=== PATIENT | female | born 1975 | race Caucasian/White ===

== ENCOUNTER 2024-03-09 21:07 | Inpatient (IN) | payer MEDICAID, SELFPAY ==
[2024-03-09 21:10] VITALS: BP 188/95; PULSE 89; RESP 18; TEMP 36.9; O2SAT 99; BMI 35.8
--- NOTE | 2024-03-09 21:30 | CTR_ITS ---
PROCEDURE INFORMATION: Exam: CT Abdomen And Pelvis With Contrast Exam date and time: 03/09/2024 10:30 PM Age: 48 years old Clinical indication: Abdominal pain; Generalized; Prior surgery; Surgery date: 6+ months; Surgery type: Gb. Csection; Patient HX: C/O diffuse abd pain; Additional info: Diffuse abdominal pain TECHNIQUE: Imaging protocol: Computed tomography of the abdomen and pelvis with contrast. Radiation optimization: All CT scans at this facility use at least one of these dose optimization techniques: automated exposure control; mA and/or kV adjustment per patient size (includes targeted exams where dose is matched to clinical indication); or iterative reconstruction. Contrast material: OMNI 350; Contrast volume: 80 ml; Contrast route: INTRAVENOUS (IV); COMPARISON: CR XR KUB [id number] 06/17/2017 12:47 AM RADIATION DOSE METRICS: Total DLP (mGy-cm): 1029.96 FINDINGS: Pleural spaces: Small bilateral pleural effusions with relaxation atelectasis in the lower lobes. Heart: Trace pericardial fluid. Liver: The liver is enlarged, measuring 19.8 cm craniocaudal. Gallbladder and biliary ducts: Status post cholecystectomy. Bile ducts are normal in caliber. Pancreas: Normal. No ductal dilation. Spleen: Punctate calcified splenic granuloma. Adrenal glands: Normal. No mass. Kidneys and ureters: Normal. No hydronephrosis. Stomach and bowel: Moderate colonic stool. Fecalization of intraluminal contents within mid to distal small bowel loops no evidence of bowel obstruction. Appendix: No evidence of appendicitis. Intraperitoneal space: Trace free pelvic fluid. Vasculature: Mild scattered aortoiliac calcifications. No aortic aneurysm. Lymph nodes: Unremarkable. No enlarged lymph nodes. Urinary bladder: Unremarkable as visualized. Reproductive: Unremarkable as visualized. Bones/joints: Unremarkable. No acute fracture. Soft tissues: Diffuse anasarca. CT/CT abdomen pelvis w con* [id number] IMPRESSION: 1. Small bilateral pleural effusions with adjacent relaxation atelectasis and diffuse anasarca may represent fluid overload. 2. Trace free pelvic fluid may be physiologic. 3. Moderate colonic stool can be seen with constipation. 4. Fecalization of intraluminal contents within mid to distal small bowel loops may represent enteritis and/or hypomotility.
--- NOTE | 2024-03-09 21:30 | W.ED.SOB ---
Documented by User: JANINE Angel 03/10/24 00:38 HPI - SOB/Dyspnea General: Chief Complaint: Shortness of Breath/Dyspnea Stated Complaint: sob Time Seen by Provider: 03/09/24 21:09 History of Present Illness: HPI Narrative: Mellisa Matthews is a 48-year-old female who presents to the emergency department with complaints of shortness of breath, chest discomfort, generalized fatigue and malaise. Onset of symptoms 4 days before Thanksgiving. Patient was evaluated the day before Thanks and diagnosed with pneumonia. She was started on and has completed antibiotics. She had a follow-up appointment which showed resolution of her pneumonia. Since then she has developed increasing shortness of breath which has resulted in diagnosis of acute heart failure and fluid retention. Patient was started Lasix and told to come to the emergency department should she have any further weight gain. Patient notes weight gain since the day before Thanks as 40 pounds. She has been taking 20 mg of Lasix daily. Patient denies fevers at this time Denies chills.. Notes a nonproductive cough. Feels like she cannot catch her breath when she starts to cough Associated symptoms: Reports abdominal pain, chest congestion, chest pain, nausea and orthopnea; Deny dizziness, extremity pain, fever(s), palpitations, polydipsia, polyuria or vomiting Related Data Home Medications Medication Instructions Recorded Confirmed aspirin 81 mg capsule 81 mg PO DAILY 03/10/24 03/10/24 fenofibrate 150 mg capsule 150 mg PO DAILY 03/10/24 03/10/24 ibuprofen 800 mg tablet 800 mg PO BID PRN Pain 03/10/24 03/10/24 insulin glargine 100 unit/mL (3 See Rx Instructions .Route .COMPLEX 03/10/24 03/10/24 mL) subcutaneous pen (Lantus Solostar U-100 Insulin) insulin lispro 100 unit/mL See Rx Instructions .Route .COMPLEX 03/10/24 03/10/24 subcutaneous solution lisinopril 20 mg tablet 20 mg PO DAILY 03/10/24 03/10/24 nifedipine 60 mg tablet,extended 60 mg PO DAILY 03/10/24 03/10/24 release pioglitazone 30 mg tablet 30 mg PO DAILY 03/10/24 03/10/24 potassium chloride 10 mEq 10 meq PO DAILY 03/10/24 03/10/24 capsule,extended release rosuvastatin 40 mg tablet 40 mg PO DAILY 03/10/24 03/10/24 Allergies Allergy/AdvReac Type Severity Reaction Status Date / Time Iodinated Contrast Media Allergy ALGY-Hives Verified 03/09/24 21:20 morphine Allergy ALGY-Hives Verified 03/09/24 21:20 Review of Systems General: Reports: 10 or more systems reviewed and unremarkable except in HPI and below Const: Reports: change in weight, fatigue, malaise and change in sleep pattern; Denies: fever(s), chills or change in appetite Card: Reports: chest pain, swelling of feet/ankles, dyspnea on exertion and orthopnea; Denies: palpitations, irregular heart rhythm, edema or leg pain with exertion Resp: Reports: dyspnea, non-productive cough and chest congestion; Denies: productive cough, wheezing or stridor GI: Reports: abdominal pain, nausea and change in bowel habits; Denies: vomiting, dysphagia, diarrhea, constipation, bloating, GI cramping or hematochezia : Denies: flank pain, difficulty voiding, dysuria, urinary frequency, urinary urgency, urinary hesitancy, oliguria or hematuria Musc: Denies: neck pain, back pain, extremity pain, joint pain, joint swelling, joint redness, joint warmth or muscle weakness Skin/Breast: Denies: rash, pruritus, erythema, photosensitivity or new lesions Neuro: Denies: headache(s), numbness in extremities, weakness in extremities, sensory changes, lack of coordination, difficulty walking, frequent falls, dizziness, confusion, Slurred speech present, difficulty communicating thoughts, seizure-like activity or involuntary movements Endo: Denies: polyuria, polydipsia or tired all the time Eliseo/Lymph: Denies: easy bruising or easy bleeding PFSH ED PFSH: Medical History section wound seroma, Hypertension Diabetes Family History Father CAD (coronary artery disease) Physical Exam Const: COMMON NORMALS: patient oriented x3 and alert GENERAL APPEARANCE: cooperative, ill appearing and appears older than stated age ORIENTATION/CONSCIOUSNESS: Yes awake, Yes oriented to person, Yes oriented to place and Yes oriented to time HENMT: COMMON NORMALS: normocephalic and atraumatic HEAD & SCALP: normocephalic and atraumatic FACE & SINUS: normal facial exam MOUTH: Normal oral and palatal mucosa present THROAT: posterior oropharynx normal Eye: COMMON NORMALS: Equal, round and reactive pupils present, EOMs intact bilaterally, conjunctivae normal and no scleral icterus GENERAL EYE: appearance normal, both eyes and all related structures ALIGNMENT: Yes alignment normal PERIORBITAL: periorbital findings normal CONJUNCTIVA: Yes conjunctivae normal PUPIL: Yes Equal, round and reactive pupils present Neck/C-Spine: COMMON NORMALS: full ROM GENERAL: Yes normal visual inspection Lymph: LYMPHATIC: no lymphadenopathy noted Chest: COMMONS NORMALS: normal inspection of the chest Breast/axilla inspection: Yes no chest deformity, asymmetry, normal contours, no nodules, masses, tenderness Resp: COMMON NORMALS: No retractions and No use of accessory muscles EFFORT & INSPECTION: Yes able to speak in complete sentences, Yes symmetric chest movement, Yes tachypneic and Yes other (88% on room air, 96% on 2 L) AUSCULTATION: crackles and diminished lung sounds bilateral in the lower lung booker Cardio: COMMON NORMALS: regular rhythm, S1 normal heart sound present, S2 normal heart sound present and Peripheral pulses 2+ throughout JUGULAR VENOUS DISTENTION: no JVD RATE: tachycardic RHYTHM: regular rhythm HEART SOUNDS: S1 normal heart sound present and S2 normal heart sound present PERIPHERAL PULSES: Peripheral pulses 2+ throughout GI: COMMON NORMALS: Soft to palpation INSPECTION: Yes normal to inspection AUSCULTATION: Yes normoactive bowel sounds PALPATION: Yes Soft to palpation, Yes Tenderness to palpation present (GI) Details: LLQ, RLQ, LUQ and RUQ and Yes Ascites present (?, Positive fluid wave) RECTAL EXAM: deferred Extremity: COMMON NORMALS: normal to inspection GENERAL: Yes normal exam except as noted Neuro: COMMON NORMALS: patient oriented x3 SENSORIUM/ORIENTATION: Yes alert, Yes oriented to person, Yes oriented to place and Yes oriented to time CRANIAL NERVES: Yes CN normal except as noted Psych: COMMON NORMALS: mental status grossly normal, Normal thought process present, cooperative, activity/motor behavior normal, denies homicidal ideation and denies suicidal ideation THOUGHT PROCESS: Normal thought process present Skin: COMMON NORMALS: no rashes or lesions noted, no wounds and turgor normal GENERAL SKIN EXAM: no rashes or lesions noted and turgor normal Course Vital Signs: Vital signs: Vital Signs Temperature 97.9 F 03/10/24 01:19 Pulse Rate 104 H 03/10/24 01:19 Respiratory Rate 19 H 03/10/24 01:19 Blood Pressure 147/78 03/10/24 01:19 Pulse Oximetry 96 03/10/24 01:19 Oxygen Delivery Me thod Nasal Cannula 03/10/24 01:19 Oxygen Flow Rate 2 03/09/24 23:23 MDM - SOB/Dyspnea Medical Decision Making Patient was evaluated in the emergency department today for complaints of cough, shortness of breath, chest pain. She has a complicated course since 23 February. Patient states initially she was getting better and was told that her pneumonia had resolved. Despite this she continued to decline and was recently diagnosed with heart failure and put on Lasix. Today she was found to have an oxygen saturation 88% and she was feeling very poorly. EMS transported her. Here in the emergency department she underwent went extensive laboratory evaluation as well as a CT abdomen pelvis due to her diffuse abdominal tenderness, distention. Her laboratory studies revealed no leukocytosis but she does have anemia. She also has acute kidney injury and elevated troponin. Troponin initially 198. With her tachycardia, shortness of breath, CT findings of bilateral pleural effusions and diffuse anasarca, I elected to reevaluate her for possible pulmonary embolism. Unfortunately she is already received contrast and has an allergy to it which required retreatment with methylprednisolone and diphenhydramine. Dr. Franklin has elected to take the lead on this case and contacted hospitalist for admission. Lab Data 03/09/24 22:50 03/09/24 22:50 Labs/Radiology: Radiology Impressions Abdomen/Pelvis CT 03/09/24 21:30 IMPRESSION: 1. Small bilateral pleural effusions with adjacent relaxation atelectasis and diffuse anasarca may represent fluid overload. 2. Trace free pelvic fluid may be physiologic. 3. Moderate colonic stool can be seen with constipation. 4. Fecalization of intraluminal contents within mid to distal small bowel loops may represent enteritis and/or hypomotility. Laboratory Results WBC 8.62 10^3/uL (3.29-11.43) 03/09/24 22:50 RBC 3.65 10^6/uL (3.85-5.65) L 03/09/24 22:50 Hgb 10.30 g/dL (11.27-16.99) L 03/09/24 22:50 Hct 31.8 % (36-47) L 03/09/24 22:50 MCV 87.1 fl (85-98) 03/09/24 22:50 MCH 28.2 pg (27-33) 03/09/24 22:50 MCHC 32.4 g/dL (30-55) 03/09/24 22:50 RDW 13.2 % (12.1-15.1) 03/09/24 22:50 Plt Count 373 10^3/cmm (157-399) 03/09/24 22:50 MPV 9.5 fL (7.4-10.4) 03/09/24 22:50 Neut % (Auto) 50.5 % 03/09/24 22:50 Lymph % (Auto) 29.1 % 03/09/24 22:50 [place] % (Auto) 8.8 % 03/09/24 22:50 Eos % (Auto) 10.4 % 03/09/24 22:50 Baso % (Auto) 0.9 % 03/09/24 22:50 Neut # (Auto) 4.34 10^3/uL (1.8-7.7) 03/09/24 22:50 Lymph # (Auto) 2.5 10^3/uL (0.8-4.8) 03/09/24 22:50 [place] # (Auto) 0.8 10^3/uL (0.2-0.9) 03/09/24 22:50 Eos # (Auto) 0.9 10^3/uL (0.0-0.8) H 03/09/24 22:50 Baso # (Auto) 0.1 10^3/uL (0.0-0.1) 03/09/24 22:50 Nucleated RBC % (auto) 0 % 03/09/24 22:50 Nucleated RBCs # 0.0 /100WBC 03/09/24 22:50 D-Dimer 0.89 ug/mLFEU (0-0.59) H 03/09/24 22:50 Specimen Type Arterial 03/09/24 20:01 Sample Site Radial, left 03/09/24 20:01 ABG pH 7.53 (7.35-7.45) H 03/09/24 20:01 ABG pCO2 34.9 mmHg (35-45) L 03/09/24 20:01 ABG pO2 149.0 mmHg (80.0-100.0) H 03/09/24 20:01 ABG HCO3 29.1 mmol/L (22-26) H 03/09/24 20:01 ABG Base Excess 6.1 mmol/L (-2.0-2.0) H 03/09/24 20:01 Josafat Test Pos 03/09/24 20:01 Hematocrit 31.6 % (37-47) L 03/09/24 20:01 Hgb O2 Saturation 97.8 % (95-100) 03/09/24 20:01 Carboxyhemoglobin 0.8 %THgb (0.4-20.1) 03/09/24 20:01 Methemoglobin 1.4 % (0.4-1.5) 03/09/24 20:01 Total Hemoglobin 10.3 g/dL (12-16) L 03/09/24 20:01 O2 Delivery Device Nc 03/09/24 20:01 O2 Liters/Min 4.0 % 03/09/24 20:01 Public Policy Professor ID [email or web address] 03/09/24 20:01 Sodium 139 mmol/L (136-145) 03/09/24 22:50 Potassium 3.4 mmol/L (3.5-5.1) L 03/09/24 22:50 Chloride 104 mmol/L (98-107) 03/09/24 22:50 Carbon Dioxide 27 mmol/L (22-29) 03/09/24 22:50 Anion Gap 11.4 (5-19) 03/09/24 22:50 BUN 16 mg/dL (6-20) 03/09/24 22:50 Creatinine 2.2 mg/dL (0.5-0.9) H 03/09/24 22:50 GFR Calculation 23.7 mL/min (90-130) L 03/09/24 22:50 Glucose 156 mg/dL (65-115) H 03/09/24 22:50 Calculated Osmolality 292 mOsm/kg (285-295) 03/09/24 22:50 Lactic Acid 0.9 mmol/L (0.5-2.2) 03/09/24 22:50 Calcium 8.0 mg/dL (8.5-10.5) L 03/09/24 22:50 Total Bilirubin 0.2 mg/dL (0.15-1.2) 03/09/24 22:50 AST 28 U/L (0-32) 03/09/24 22:50 ALT 17 U/L (0-33) 03/09/24 22:50 Alkaline Phosphatase 56 U/L (35-105) 03/09/24 22:50 Troponin T Baseline 198 ng/L (0-10) H* 03/09/24 22:50 NT-Pro-B Natriuret Pep 3819 pg/mL (0-125) H 03/09/24 22:50 Total Protein 3.8 g/dL (6.6-8.7) L 03/09/24 22:50 Albumin 2.0 g/dL (3.5-5.2) L 03/09/24 22:50 Globulin 1.8 g/dL (1.3-4.6) 03/09/24 22:50 Lipase 21 U/L (13-60) 03/09/24 22:50 Coronavirus (PCR) Negative (Negative) 03/09/24 22:25 Influenza A (PCR) Negative (Negative) 03/09/24 22:25 Influenza Type B (PCR) Negative (Negative) 03/09/24 22:25 RSV (PCR) Negative (Negative) 03/09/24 22:25 All radiology interpretation(s) finalized by discharge Discharge Plan Discharge Patient Disposition: Admitted As Inpatient Admit Provider: Edyta Acosta Clinical Impression: Congestive heart failure, Elevated troponin, Acute kidney injury, NSTEMI (non-ST elevated myocardial infarction), Hypoxia Condition: Serious Coding Level of Care Code ED Tin Plater for Chg Fwd Documented by User: Catalino Franklin DO 03/10/24 03:45 HPI - SOB/Dyspnea General: Chief Complaint: Shortness of Breath/Dyspnea Stated Complaint: sob Time Seen by Provider: 03/09/24 21:09 Related Data Home Medications Medication Instructions Recorded Confirmed aspirin 81 mg capsule 81 mg PO DAILY 03/10/24 03/10/24 fenofibrate 150 mg capsule 150 mg PO DAILY 03/10/24 03/10/24 ibuprofen 800 mg tablet 800 mg PO BID PRN Pain 03/10/24 03/10/24 insulin glargine 100 unit/mL (3 See Rx Instructions .Route .COMPLEX 03/10/24 03/10/24 mL) subcutaneous pen (Lantus Solostar U-100 Insulin) insulin lispro 100 unit/mL See Rx Instructions .Route .COMPLEX 03/10/24 03/10/24 subcutaneous solution lisinopril 20 mg tablet 20 mg PO DAILY 03/10/24 03/10/24 nifedipine 60 mg tablet,extended 60 mg PO DAILY 03/10/24 03/10/24 release pioglitazone 30 mg tablet 30 mg PO DAILY 03/10/24 03/10/24 potassium chloride 10 mEq 10 meq PO DAILY 03/10/24 03/10/24 capsule,extended release rosuvastatin 40 mg tablet 40 mg PO DAILY 03/10/24 03/10/24 Allergies Allergy/AdvReac Type Severity Reaction Status Date / Time Iodinated Contrast Media Allergy ALGY-Hives Verified 03/09/24 21:20 morphine Allergy ALGY-Hives Verified 03/09/24 21:20 [facility] ED PFSH: Medical History section wound seroma, Hypertension Diabetes Family History Father CAD (coronary artery disease) Course Vital Signs: Vital signs: Vital Signs Temperature 97.9 F 03/10/24 01:19 Pulse Rate 104 H 03/10/24 01:19 Respiratory Rate 19 H 03/10/24 01:19 Blood Pressure 147/78 03/10/24 01:19 Pulse Oximetry 96 03/10/24 01:19 Oxygen Delivery Me thod Nasal Cannula 03/10/24 01:19 Oxygen Flow Rate 2 03/09/24 23:23 MDM - SOB/Dyspnea Medical Decision Making Patient was evaluated in the emergency department today for complaints of cough, shortness of breath, chest pain. She has a complicated course since 23 February. Patient states initially she was getting better and was told that her pneumonia had resolved. Despite this she continued to decline and was recently diagnosed with heart failure and put on Lasix. Today she was found to have an oxygen saturation 88% and she was feeling very poorly. EMS transported her. Here in the emergency department she underwent went extensive laboratory evaluation as well as a CT abdomen pelvis due to her diffuse abdominal tenderness, distention. Her laboratory studies revealed no leukocytosis but she does have anemia. She also has acute kidney injury and elevated troponin. Troponin initially 198. With her tachycardia, shortness of breath, CT findings of bilateral pleural effusions and diffuse anasarca, I elected to reevaluate her for possible pulmonary embolism. Unfortunately she is already received contrast and has an allergy to it which required retreatment with methylprednisolone and diphenhydramine. Dr. Franklin has elected to take the lead on this case and contacted hospitalist for admission. 48-year-old female checked out at shift change. This patient had received an IV contrast bolus prior for her belly CT. There is significant concern given her elevated troponin, tachycardia, and mild hypoxia, that she could have a pulmonary embolism. Also troponin is high enough, that she is positive for potential non-STEMI. Because of this, she will be heparinized. She go to the [facility]. Can elect to do CTA of the chest at a later time, as she will be receiving appropriate treatment regardless. She will go to the [facility]. Hospitalist will see the patient. Lab Data 03/09/24 22:50 03/09/24 22:50 Labs/Radiology: Radiology Impressions Abdomen/Pelvis CT 03/09/24 21:30 IMPRESSION: 1. Small bilateral pleural effusions with adjacent relaxation atelectasis and diffuse anasarca may represent fluid overload. 2. Trace free pelvic fluid may be physiologic. 3. Moderate colonic stool can be seen with constipation. 4. Fecalization of intraluminal contents within mid to distal small bowel loops may represent enteritis and/or hypomotility. Laboratory Results WBC 8.62 10^3/uL (3.29-11.43) 03/09/24 22:50 RBC 3.65 10^6/uL (3.85-5.65) L 03/09/24 22:50 Hgb 10.30 g/dL (11.27-16.99) L 03/09/24 22:50 Hct 31.8 % (36-47) L 03/09/24 22:50 MCV 87.1 fl (85-98) 03/09/24 22:50 MCH 28.2 pg (27-33) 03/09/24 22:50 MCHC 32.4 g/dL (30-55) 03/09/24 22:50 RDW 13.2 % (12.1-15.1) 03/09/24 22:50 Plt Count 373 10^3/cmm (157-399) 03/09/24 22:50 MPV 9.5 fL (7.4-10.4) 03/09/24 22:50 Neut % (Auto) 50.5 % 03/09/24 22:50 Lymph % (Auto) 29.1 % 03/09/24 22:50 [place] % (Auto) 8.8 % 03/09/24 22:50 Eos % (Auto) 10.4 % 03/09/24 22:50 Baso % (Auto) 0.9 % 03/09/24 22:50 Neut # (Auto) 4.34 10^3/uL (1.8-7.7) 03/09/24 22:50 Lymph # (Auto) 2.5 10^3/uL (0.8-4.8) 03/09/24 22:50 [place] # (Auto) 0.8 10^3/uL (0.2-0.9) 03/09/24 22:50 Eos # (Auto) 0.9 10^3/uL (0.0-0.8) H 03/09/24 22:50 Baso # (Auto) 0.1 10^3/uL (0.0-0.1) 03/09/24 22:50 Nucleated RBC % (auto) 0 % 03/09/24 22:50 Nucleated RBCs # 0.0 /100WBC 03/09/24 22:50 D-Dimer 0.89 ug/mLFEU (0-0.59) H 03/09/24 22:50 Specimen Type Arterial 03/09/24 20:01 Sample Site Radial, left 03/09/24 20:01 ABG pH 7.53 (7.35-7.45) H 03/09/24 20:01 ABG pCO2 34.9 mmHg (35-45) L 03/09/24 20:01 ABG pO2 149.0 mmHg (80.0-100.0) H 03/09/24 20:01 ABG HCO3 29.1 mmol/L (22-26) H 03/09/24 20:01 ABG Base Excess 6.1 mmol/L (-2.0-2.0) H 03/09/24 20:01 Josafat Test Pos 03/09/24 20:01 Hematocrit 31.6 % (37-47) L 03/09/24 20:01 Hgb O2 Saturation 97.8 % (95-100) 03/09/24 20:01 Carboxyhemoglobin 0.8 %THgb (0.4-20.1) 03/09/24 20:01 Methemoglobin 1.4 % (0.4-1.5) 03/09/24 20:01 Total Hemoglobin 10.3 g/dL (12-16) L 03/09/24 20:01 O2 Delivery Device Nc 03/09/24 20:01 O2 Liters/Min 4.0 % 03/09/24 20:01 Public Policy Professor ID [email or web address] 03/09/24 20:01 Sodium 139 mmol/L (136-145) 03/09/24 22:50 Potassium 3.4 mmol/L (3.5-5.1) L 03/09/24 22:50 Chloride 104 mmol/L (98-107) 03/09/24 22:50 Carbon Dioxide 27 mmol/L (22-29) 03/09/24 22:50 Anion Gap 11.4 (5-19) 03/09/24 22:50 BUN 16 mg/dL (6-20) 03/09/24 22:50 Creatinine 2.2 mg/dL (0.5-0.9) H 03/09/24 22:50 GFR Calculation 23.7 mL/min (90-130) L 03/09/24 22:50 Glucose 156 mg/dL (65-115) H 03/09/24 22:50 Calculated Osmolality 292 mOsm/kg (285-295) 03/09/24 22:50 Lactic Acid 0.9 mmol/L (0.5-2.2) 03/09/24 22:50 Calcium 8.0 mg/dL (8.5-10.5) L 03/09/24 22:50 Total Bilirubin 0.2 mg/dL (0.15-1.2) 03/09/24 22:50 AST 28 U/L (0-32) 03/09/24 22:50 ALT 17 U/L (0-33) 03/09/24 22:50 Alkaline Phosphatase 56 U/L (35-105) 03/09/24 22:50 Troponin T Baseline 198 ng/L (0-10) H* 03/09/24 22:50 NT-Pro-B Natriuret Pep 3819 pg/mL (0-125) H 03/09/24 22:50 Total Protein 3.8 g/dL (6.6-8.7) L 03/09/24 22:50 Albumin 2.0 g/dL (3.5-5.2) L 03/09/24 22:50 Globulin 1.8 g/dL (1.3-4.6) 03/09/24 22:50 Lipase 21 U/L (13-60) 03/09/24 22:50 Coronavirus (PCR) Negative (Negative) 03/09/24 22:25 Influenza A (PCR) Negative (Negative) 03/09/24 22:25 Influenza Type B (PCR) Negative (Negative) 03/09/24 22:25 RSV (PCR) Negative (Negative) 03/09/24 22:25 All radiology interpretation(s) finalized by discharge Discharge Plan Discharge Patient Disposition: Admitted As Inpatient Admit Provider: Edyta Acosta Clinical Impression: Congestive heart failure, Elevated troponin, Acute kidney injury, NSTEMI (non-ST elevated myocardial infarction), Hypoxia Condition: Serious Coding Level of Care Code ED Tin Plater for Joe Gallagher
--- NOTE | 2024-03-09 21:32 | ECG_ITS ---
[facility] Date: 2024-03-09 Pat Name: Mellisa Matthews Department: Room: Gender: Female Piping Manager: : 1975 Requested By: Rylie Schofield Order Number: [id number] Reading MD: CLAUDIA STEVENS Measurements Intervals [place] Rate: 106 P: 60 [place]: 159 QRS: 42 QRSD: 101 T: 44 QT: 346 QTc: 461 Interpretive Statements SINUS TACHYCARDIA ABNORMAL RHYTHM ECG No previous ECG available for comparison Electronically Signed On 03-11-2024 16:10:54 PHOTOGRAPHIC SUPERVISOR by CLAUDIA STEVENS [email or web address]
[2024-03-09] MEDS: ipratropium-albuterol 3 mL Neb INHALATION (22:01)
[2024-03-09 22:02] VITALS: PULSE 86; RESP 20; O2SAT 99
[2024-03-09 22:12] LABS: ABG PCO2 34.9 mmHg (35-45); ABG PH Result 7.53 (7.35-7.45); Arterial Blood Gas Hematocrit 31.6 % (37-47); Base Excess ABG 6.1 mmol/L (-2.0-2.0); Blood Gas Allen Test Pos; Blood Gas Operator Identificat HARKR11; Blood Gas Sample Site Radial, left; Blood Gas Sample Type Arterial; Carboxyhemoglobin 0.8 %THgb (0.4-20.1); HCO3 ABG 29.1 mmol/L (22-26); HGB O2 Sat 97.8 % (95-100); Methemoglobin 1.4 % (0.4-1.5); Oxygen Device NC; Total Hemoglobin 10.3 g/dL (12-16)
[2024-03-09] MEDS: methylPREDNISolone sod succ 40 mg/mL INJ IVP (22:23)
[2024-03-09] MEDS: diphenhydrAMINE 50 mg/mL SDV 1mL IVP (22:23)
[2024-03-09] MEDS: iohexol 350 mg/mL 500 mL Btl (per mL) IV (22:29)
[2024-03-09 22:55] LABS: Basophils # 0.1 10^3/uL (0.0-0.1); Basophils % 0.9 %; Eosinophils # 0.9 10^3/uL (0.0-0.8); Eosinophils % 10.4 %; Hematocrit 31.8 % (36-47); Lymphocytes # 2.5 10^3/uL (0.8-4.8); Lymphocytes % 29.1 %; Mean Corpuscular HGB Conc 32.4 g/dL (30-55); Mean Corpuscular Hemoglobin 28.2 pg (27-33); Mean Corpuscular Volume 87.1 fl (85-98); Mean Platelet Volume 9.5 fL (7.4-10.4); Monocytes # 0.8 10^3/uL (0.2-0.9); Monocytes % 8.8 %; Neutrophils # 4.34 10^3/uL (1.8-7.7); Neutrophils % 50.5 %; Nucleated Red Blood Cells % 0 %; Platelet Count 373 10^3/cmm (157-399); Red Blood Count 3.65 10^6/uL (3.85-5.65); Red Cell Distribution Width 13.2 % (12.1-15.1); White Blood Count 8.62 10^3/uL (3.29-11.43)
[2024-03-09 23:17] LABS: Lactic Sepsis W/Reflex 0.9 mmol/L (0.5-2.2)
[2024-03-09 23:23] VITALS: BP 162/80; PULSE 105; RESP 18; O2SAT 96
--- NOTE | 2024-03-09 23:23 | PC.NURSE ---
NURSE HERNANDEZ ASSUMED CARE AT 2300
[2024-03-09 23:32] LABS: Alanine Aminotransferase 17 U/L (0-33); Alkaline Phosphatase 56 U/L (35-105); Anion Gap 11.4 (5-19); Aspartate Amino Transferase 28 U/L (0-32); Blood Urea Nitrogen 16 mg/dL (6-20); Carbon Dioxide 27 mmol/L (22-29); Chloride 104 mmol/L (98-107); Creatinine Clr Calc Pharmacy 37.0436; Globulin 1.8 g/dL (1.3-4.6); Glomerular Filtration Rate 23.7 mL/min (90-130); Glucose 156 mg/dL (65-115); Lipase 21 U/L (13-60); Osmolality Calculated 292 mOsm/kg (285-295); Potassium 3.4 mmol/L (3.5-5.1); Sodium 139 mmol/L (136-145); Total Bilirubin 0.2 mg/dL (0.15-1.2); Total Protein 3.8 g/dL (6.6-8.7); Troponin(5th) Baseline 198 ng/L (0-10)
[2024-03-09 23:37] LABS: Covid PCR NEGATIVE (Negative); Influenza A NEGATIVE (Negative); Influenza B NEGATIVE (Negative); Respiratory Syncytial Virus Ce NEGATIVE (Negative)
[2024-03-09 23:40] LABS: NT Pro B Type Natriuretic Pept 3819 pg/mL (0-125)
[2024-03-10] VITALS (9 sets, daily range): BP systolic 124–174; BP diastolic 68–98; PULSE 85–104; RESP 16–22; TEMP 36.3–37.1; O2SAT 94–99
--- NOTE | 2024-03-10 00:30 | P.HP_ITS ---
Providers/Chief Complaint 2 Primary Care Provider: Melissa Roman DO Chief Complaint: sob History of Present Illness Mellisa Matthews is a 48 year old female without previous history of coronary disease CHF, presented to hospital with orthopnea and PND weight gain. Patient is denying history of sleep apnea, no previous history of stents, but she is endorsing history of hypertension or diabetes. She has been taken off high dose of insulin because of hypoglycemic event. She does have chronic kidney disease as well related to diabetes. Patient stating that her symptoms started a week before and since then she has been noticing worsening of her symptoms. She is extreme lethargic and fatigued. Patient is stating that her father had heart attack at age 18. Workup is revealing chronic anemia, acute on chronic kidney disease, hypokalemia, anasarca, constipation, non-STEMI with significant troponin elevation however EKG showing tachycardia without any ischemic or infarct changes. Patient is endorsing sore throat her COVID PCR panel is negative along influenza. She is tachycardic and requiring 1 to 2 L of oxygen, I have decided to hold off on CTA chest since she has also received contrast for CT abdomen pelvis, I would like to start ACS protocol Review of Systems 2 Const: Reports: chills Eyes: Denies: change in vision ENMT: Denies: throat pain Card: Denies: chest pain Resp: Reports: dyspnea GI: Denies: abdominal pain Medications/Allergies Allergies Allergy/AdvReac Type Severity Reaction Status Date / Time Iodinated Contrast Media Allergy ALGY-Hives Verified 03/09/24 21:20 morphine Allergy ALGY-Hives Verified 03/09/24 21:20 PFSH Acute 2 PFSH: Medical History section wound seroma, Hypertension Diabetes Family History Father CAD (coronary artery disease) Vitals/I&O/Wt Last Vital Signs Temp 98.4 F 03/09/24 21:10 Pulse 105 H 03/09/24 23:23 Resp 18 03/09/24 23:23 BP 162/80 03/09/24 23:23 Pulse Ox 96 03/09/24 23:23 O2 Del Method Nasal Cannula 03/09/24 23:23 O2 Flow Rate 2 03/09/24 23:23 Weight last 48 hrs Weight 100.698 kg Physical Exam 2 Narrative: Clinical send fluid overload Currently on 2 L Pleasant and cooperative Plan of fluid overload Edema Morbid obese Currently on 2 L Tachycardia Active chest pain Currently hemodynamically stable Lethargic and fatigue Abdomen soft Distended abdomen nontender S1, S2 tachycardia Data 03/09/24 22:50 03/09/24 22:50 A&P Assessment and plan (1) Congestive heart failure: (2) Acute kidney injury: (3) NSTEMI (non-ST elevated myocardial infarction): (4) Hypoxia: (5) New onset of congestive heart failure: Plan New onset CHF Non-STEMI Start ACS protocol EKG not showing any ischemic or infarct changes Rule out sleep apnea who request pulse ox study overnight Check TSH and B12 Patient is diabetic with history of hypertension. Once patient becomes euvolemic she will need an angiogram and cardiology consultation Acute on chronic kidney disease Likely cardiorenal Start diuresis once we replenish potassium I do not have previous creatinine to compare her baseline creatinine I am anticipating improvement with diuresis Type 2 diabetes: Insulin dose has been readjusted because of hypoglycemia: Will keep her on sliding scale Hypertension: Avoid nephrotoxic agents, will use hydralazine, metoprolol for now Full code Consistent carb diet DVT prophylaxis: Covered with therapeutic heparin regimen Attestations 2 Medical Necessity Statement*: More than 2 midnights anticipated Diagnoses Congestive heart failure I50.9 Acute kidney injury N17.9 NSTEMI (non-ST elevated myocardial infarction) I21.4 Hypoxia R09.02 New onset of congestive heart failure I50.9
[2024-03-10 01:01] LABS: D Dimer 0.89 ug/mLFEU (0-0.59)
--- NOTE | 2024-03-10 01:17 | USCV_ITS ---
Mellisa Matthews Age: 48 Gender: F : 1975 Exam Date: 03/10/2024 15:15 Ordering Phys: Edyta Acosta MD Technologist: Jeanmarie Hair [place]am [place] [facility] [place]ication: chf BP: 167 / 82 HR: 84 Rhythm: Sinus Technical Quality: Adequate MEASUREMENTS (Male / Female) Normal Values 2D ECHO LV Diastolic Diameter PLAX 5.3 cm 4.2 - 5.9 / 3.9 - 5.3 cm IVS Diastolic Thickness 0.9 cm 0.6 - 1.0 / 0.6 - 0.9 cm IVS Systolic Thickness 1.5 cm LVPW Diastolic Thickness 2.6 cm 0.6 - 1.0 / 0.6 - 0.9 cm LVPW Systolic Thickness 2.7 cm LVOT Diameter 2.1 cm LV Ejection Fraction 2D Teich 55.3 % LV Ejection Fraction MOD 4C 56.4 % LV Ejection Fraction MOD 2C 48.4 % LV Ejection Fraction 2C AL 49.7 % LA Diameter 3.8 cm RA Systolic Volume 4C AL 33.4 ml RA Systolic Volume 4C MOD 33.3 ml LA Sys Volume AL 54.8 cm cubed LA Sys Volume Index AL 23.4 cm cubed/m squared Aorta at Sinotubular Diameter 2.8 cm IVC Diameter 1.8 cm M-MODE LA Ao Ratio MM 1.1 AV Cusp Separation MM 1.4 cm DOPPLER AV Peak Velocity 125.0 cm/s LVOT Peak Velocity 69.0 cm/s AV Area Cont Eq vti 2.1 cm squared AV Area Cont Eq pk 1.9 cm squared MV Peak Velocity 141.0 cm/s MV Area PHT 5.7 cm squared Mitral E to A Ratio 2.0 TV Peak Velocity 357.5 cm/s TR Peak Velocity 354.5 cm/s TR Peak Gradient 50.3 mmHg TR Mean Velocity 314.0 cm/s TR Mean Gradient 41.5 mmHg TR Velocity Time Integral 107.9 cm PV Peak Velocity 88.0 cm/s RV Ejection Time 0.3 s FINDINGS Left Ventricle Normal left ventricular size, systolic function and wall thickness, with no regional wall motion abnormalities. Left ventricular ejection fraction is estimated at 60 %.Grade II/IV diastolic dysfunction, moderately elevated filling pressures. Right Ventricle The right ventricle is normal in size and function. Right Atrium The right atrium is normal in size. Left Atrium The left atrium is normal in size. Mitral Valve Mildly thickened mitral valve. No mitral valve stenosis. Trace mitral valve regurgitation. Aortic Valve Aortic valve sclerosis. No aortic valve stenosis. Trace aortic valve regurgitation. Tricuspid Valve Mild tricuspid valve regurgitation. Pulmonic Valve Structurally normal pulmonic valve without significant stenosis. There is no pulmonic regurgitation. Pericardium Normal pericardium without effusion. Aorta Normal ascending aorta dimension. IVC The inferior vena cava appears normal. CONCLUSIONS Normal left ventricular size, systolic function and wall thickness, with no regional wall motion abnormalities. Left ventricular ejection fraction is estimated at 60 %.Grade II/IV diastolic dysfunction, moderately elevated filling pressures. Mildly thickened mitral valve. No mitral valve stenosis. Trace mitral valve regurgitation. Aortic valve sclerosis. No aortic valve stenosis. Trace aortic valve regurgitation. There is no pericardial effusion. Right atrial pressure is around 5 mm of mercury. Edyta Chandler MD (Electronically Signed) Final Date: 10 March 2024 21:52 S
[2024-03-10] MEDS: heparin drip 25,000 UNIT/500 ML PREMIX 29 UNIT IV (02:12)
[2024-03-10] MEDS: aspirin 325 mg EC Tablet PO (02:15)
[2024-03-10] MEDS: potassium chloride ER 20 mEq Tablet 40 MEQ PO ×2 (02:15→09:05)
[2024-03-10] MEDS: clopidogrel 300 mg Tablet PO (02:15)
[2024-03-10] MEDS: piperacillin-tazobactam 3.375 GM in sodium chloride 0.9% (plus) 50 ML IV ×2 (02:16→09:05)
[2024-03-10] MEDS: heparin 5,000 unit/mL INJ 1 mL IVP ×2 (02:17→21:45)
[2024-03-10] MEDS: magnesium citrate Btl 296 mL 150 ML PO (02:25)
--- NOTE | 2024-03-10 03:43 | ECG_ITS ---
[facility] Test Date: 2024-03-10 Pat Name: Mellisa Matthews Department: Room: 107 Gender: Female Director Of Women'S Services: : 1975 Requested By: Rylie Schofield Order Number: [id number] Reading MD: CLAUDIA STEVENS Measurements Intervals Rhodelia Rate: 100 P: 40 NC: 142 QRS: 5 QRSD: 100 T: 75 QT: 354 QTc: 458 Interpretive Statements SINUS TACHYCARDIA NONSPECIFIC T-WAVE ABNORMALITY ABNORMAL RHYTHM ECG Compared to ECG 03/09/2024 22:39:56 T-wave abnormality now present Electronically Signed On 03-11-2024 16:16:52 [employer]ESE TUTOR by CLAUDIA STEVENS [id number]
[2024-03-10 05:27] LABS: Basophils # 0.1 10^3/uL (0.0-0.1); Basophils % 0.7 %; Eosinophils # 0.3 10^3/uL (0.0-0.8); Hematocrit 30.9 % (36-47); Lymphocytes # 1.6 10^3/uL (0.8-4.8); Lymphocytes % 17.9 %; Mean Corpuscular HGB Conc 32.4 g/dL (30-55); Mean Corpuscular Hemoglobin 28.6 pg (27-33); Mean Corpuscular Volume 88.3 fl (85-98); Monocytes # 0.4 10^3/uL (0.2-0.9); Monocytes % 4.8 %; Neutrophils # 6.35 10^3/uL (1.8-7.7); Neutrophils % 73.4 %; Nucleated Red Blood Cells % 0 %; Platelet Count 351 10^3/cmm (157-399); Red Cell Distribution Width 13.2 % (12.1-15.1); White Blood Count 8.66 10^3/uL (3.29-11.43)
[2024-03-10 05:45] LABS: Creatinine Clr Calc Pharmacy 37.7257
[2024-03-10 05:50] LABS: Troponin 5 6HR Delta 9.4 ng/L (0-12)
[2024-03-10 06:06] LABS: Thyroid Stimulating Hormone 3.56 uIU/mL (0.27-4.20); Vitamin B12 371 pg/mL (232-1245)
[2024-03-10 06:17] LABS: Troponin 5 6HR 207.4 ng/L (0-10)
[2024-03-10 06:30] LABS: Anion Gap 13.4 (5-19); Blood Urea Nitrogen 17 mg/dL (6-20); Calcium 8.2 mg/dL (8.5-10.5); Glomerular Filtration Rate 23.7 mL/min (90-130); Glucose 199 mg/dL (65-115); Osmolality Calculated 301 mOsm/kg (285-295)
[2024-03-10 06:31] LABS: Carbon Dioxide 26 mmol/L (22-29); Chloride 106 mmol/L (98-107); Phosphorus 4.2 mg/dL (2.5-4.5); Potassium 3.4 mmol/L (3.5-5.1); Sodium 142 mmol/L (136-145)
[2024-03-10] MEDS: sennosides-docusate Tablet 2 TAB PO (09:04)
[2024-03-10] MEDS: atorvastatin 40 mg Tablet 80 MG PO (09:05)
[2024-03-10] MEDS: clopidogrel 75 mg Tablet PO (09:05)
[2024-03-10] MEDS: aspirin 81 mg EC Tablet PO (09:05)
[2024-03-10 09:13] LABS: Partial Thromboplastin Time 125.1 SECONDS (23.9-36.7)
[2024-03-10 12:24] LABS: Glucose Point of Care 194 mg/dL (70-110)
--- NOTE | 2024-03-10 13:44 | PM.MISC ---
Miscellaneous Note Purpose of Documentation: Overnight labs and H&P reviewed. Patient is currently on 2 L/min supplemental O2. Bilateral lower extremity edema continues to persist. Troponin series reviewed, baseline at 198, at 2 hours 188, at 6 hours 207, no significant delta at 2 or 6 hours. Favor this to be troponin leak related to CHF. Awaiting echocardiogram to a certain systolic/diastolic dysfunction and regional wall motion abnormalities. Patient is currently not volume optimized. Additional dose of Lasix 40 mg IV now. Closely monitor renal function and urine output. Urine analysis to assess for proteinuria, casts. CT of the abdomen and pelvis showing small bilateral pleural effusions with atelectasis. Bilateral kidneys appearing normal without hydronephrosis. Net -1.5 L since last night. To continue IV diuresis. Once optimized to proceed with cardiac stress test. No current signs or symptoms of localizing infection. Discontinue piperacillin/tazobactam.
[2024-03-10 15:02] LABS: Partial Thromboplastin Time 87.4 SECONDS (23.9-36.7)
[2024-03-10] MEDS: FUROsemide 10 mg/mL SDV 4mL 40 MG IVP (16:02)
[2024-03-10 17:33] LABS: Glucose Point of Care 162 mg/dL (70-110)
[2024-03-10] MEDS: insulin lispro 100 unit/1 mL SUBCUT (17:52)
[2024-03-10 20:56] LABS: Glucose Point of Care 86 mg/dL (70-110)
[2024-03-10 21:15] LABS: Partial Thromboplastin Time 41.8 SECONDS (23.9-36.7)
[2024-03-10] MEDS: heparin drip 25,000 UNIT/500 ML PREMIX 23 UNIT IV (23:13)
--- NOTE | 2024-03-10 23:32 | PC.RESP ---
overnight pulse ox started at 2225. Patient on baseline room air.
[2024-03-11] VITALS (10 sets, daily range): BP systolic 115–186; BP diastolic 74–105; PULSE 81–96; RESP 13–24; TEMP 36.6–36.9; O2SAT 93–95
[2024-03-11 05:13] LABS: Basophils # 0.1 10^3/uL (0.0-0.1); Basophils % 1.3 %; Eosinophils # 1.4 10^3/uL (0.0-0.8); Eosinophils % 17.8 %; Hematocrit 30.8 % (36-47); Lymphocytes # 2.4 10^3/uL (0.8-4.8); Lymphocytes % 30.5 %; Mean Corpuscular HGB Conc 31.8 g/dL (30-55); Mean Corpuscular Hemoglobin 28.7 pg (27-33); Mean Corpuscular Volume 90.3 fl (85-98); Mean Platelet Volume 9.5 fL (7.4-10.4); Monocytes # 0.6 10^3/uL (0.2-0.9); Neutrophils % 42.1 %; Nucleated Red Blood Cells % 0 %; Platelet Count 317 10^3/cmm (157-399); Red Blood Count 3.41 10^6/uL (3.85-5.65); Red Cell Distribution Width 13.3 % (12.1-15.1); White Blood Count 7.83 10^3/uL (3.29-11.43)
[2024-03-11 05:26] LABS: Estmated Average Glucose 126
[2024-03-11 05:36] LABS: Alanine Aminotransferase 14 U/L (0-33); Albumin Level 1.8 g/dL (3.5-5.2); Alkaline Phosphatase 41 U/L (35-105); Anion Gap 10.7 (5-19); Aspartate Amino Transferase 21 U/L (0-32); Blood Urea Nitrogen 14 mg/dL (6-20); Calcium 8.4 mg/dL (8.5-10.5); Carbon Dioxide 29 mmol/L (22-29); Chloride 103 mmol/L (98-107); Creatinine Clr Calc Pharmacy 37.7257; Globulin 2.3 g/dL (1.3-4.6); Glomerular Filtration Rate 23.7 mL/min (90-130); Glucose 104 mg/dL (65-115); Osmolality Calculated 289 mOsm/kg (285-295); Potassium 3.7 mmol/L (3.5-5.1); Sodium 139 mmol/L (136-145); Total Bilirubin 0.2 mg/dL (0.15-1.2); Total Protein 4.1 g/dL (6.6-8.7)
[2024-03-11 05:43] LABS: Partial Thromboplastin Time 80.1 SECONDS (23.9-36.7)
[2024-03-11 06:41] LABS: Glucose Point of Care 108 mg/dL (70-110)
[2024-03-11] MEDS: clopidogrel 75 mg Tablet PO (08:15)
[2024-03-11] MEDS: FUROsemide 10 mg/mL SDV 2mL 20 MG IVP ×2 (08:15→16:27)
[2024-03-11] MEDS: aspirin 81 mg EC Tablet PO (08:15)
[2024-03-11] MEDS: NIFEdipine ER (24 hr) 30 mg Tablet 60 MG PO (08:16)
[2024-03-11] MEDS: atorvastatin 40 mg Tablet 80 MG PO (08:16)
[2024-03-11] MEDS: potassium chloride ER 20 mEq Tablet 40 MEQ PO (08:16)
--- NOTE | 2024-03-11 09:40 | PC.CHAP ---
Pastoral Care Encounter/Spiritual Assessment Type of Contact [] Declined department director visit [] Patient/Family/Request visit [] Outpatient visit [] Follow-up visit [] Physician referral [] Code/Alert [x] Routine visit [] Staff referral [] Actively dying [x] Patient sleeping [] Family support [] [] Out of room [] Palliative care [] [] Receiving care in room [] Pre-surgical visit [] Trauma [] Long length of stay [] ICU visit [] Other: Relational/Emotional Strength [] Patient feels connected with others/family/visitors/staff [] Distress [] Loneliness/isolation [] Abandonment Spirituality of Patient [] Person of Anuradha [] Attends [employer] of their Anuradha [] Believes in Prayer [] Reads Bible or Adventist materials [] There are Spiritual issues to be addressed 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 [] Prayer [] Active listening [] Non-anxious presence [] Spiritual/emotional support [] Crisis/trauma care [] Spiritual counseling [] Bereavement support [] Provided bereavement packet [] Provided Bible/devotional materials [] Provided toy/stuffed animal, coloring book to patient or family member [] Provided Communion [] Anointing/[place] [] Salvation [] Completed spiritual assessment [] Other: Impact on Illness or Injury [] Angry [] Fearful [] Anxious [] Often cries [] Exhaustion [] Unable to work [] Unable to attend religion [] Unable to walk/stand [] Unable to read [] Unable to drive [] Unable to eat/drink [] Unable to sleep [] Unable to be with family [] Patient intubated [] Other: Summary Time spent with patient
[2024-03-11 12:12] LABS: Glucose Point of Care 113 mg/dL (70-110)
[2024-03-11 13:40] LABS: Partial Thromboplastin Time 51.3 SECONDS (23.9-36.7)
[2024-03-11] MEDS: metoprolol tartrate 25 mg Tablet PO (14:04)
--- NOTE | 2024-03-11 14:44 | P.PN_ITS ---
Subjective 2 Subjective: Patient states she still continues to feel very weak. She is noted to be wearing her nasal cannula though her oxygen is not even on. Overnight oximetry study was completed, patient remained on room air during the course of the study. Medications: Reviewed: Yes Vitals/I&O/Wt Last Vital Signs Temp 98.4 F 03/11/24 11:51 Pulse 95 03/11/24 13:36 Resp 18 03/11/24 13:36 BP 186/105 03/11/24 11:51 Pulse Ox 94 03/11/24 13:36 O2 Del Method Room Air 03/11/24 13:36 O2 Flow Rate 2 03/10/24 10:47 03/10/24 03/11/24 03/11/24 22:59 06:59 14:59 Intake Total 501.166 / 1546.583 196.650 / 1743.233 759.95 / 759.95 Output Total 4700 / 6700 1550 / 8250 1999 / 1999 Balance -4198.834 / -5153.417 -1353.350 / -6506.767 -1240.05 / -1240.05 Weight last 48 hrs Weight 101.106 kg Weight 104.19 kg Weight 104.19 kg Weight 100.698 kg Physical Exam 2 Urinary Catheter Management: Mayorga Latex: Cath Placed During This Visit: yes Urinary Catheter Date of Insertion: 03/10/24 Urinary Catheter Time of Insertion: 01:30 Data 03/11/24 04:58 03/11/24 04:58 A&P Assessment and plan (1) Congestive heart failure: (2) Acute kidney injury: (3) NSTEMI (non-ST elevated myocardial infarction): (4) Hypoxia: (5) New onset of congestive heart failure: Plan New onset CHF Non-STEMI Start ACS protocol EKG not showing any ischemic or infarct changes Rule out sleep apnea who request pulse ox study overnight Check TSH and B12 Patient is diabetic with history of hypertension. Once patient becomes euvolemic she will need an angiogram and cardiology consultation Acute on chronic kidney disease Likely cardiorenal Start diuresis once we replenish potassium I do not have previous creatinine to compare her baseline creatinine I am anticipating improvement with diuresis Type 2 diabetes: Insulin dose has been readjusted because of hypoglycemia: Will keep her on sliding scale Hypertension: Avoid nephrotoxic agents, will use hydralazine, metoprolol for now Full code Consistent carb diet DVT prophylaxis: Covered with therapeutic heparin regimen 03/10/2024 Overnight labs and H&P reviewed. Patient is currently on 2 L/min supplemental O2. Bilateral lower extremity edema continues to persist. Troponin series reviewed, baseline at 198, at 2 hours 188, at 6 hours 207, no significant delta at 2 or 6 hours. Favor this to be troponin leak related to CHF. Awaiting echocardiogram to a certain systolic/diastolic dysfunction and regional wall motion abnormalities. Patient is currently not volume optimized. Additional dose of Lasix 40 mg IV now. Closely monitor renal function and urine output. Urine analysis to assess for proteinuria, casts. CT of the abdomen and pelvis showing small bilateral pleural effusions with atelectasis. Bilateral kidneys appearing normal without hydronephrosis. Net -1.5 L since last night. To continue IV diuresis. Once optimized to proceed with cardiac stress test. No current signs or symptoms of localizing infection. Discontinue piperacillin/tazobactam. 03/11/2024 Patient is off supplemental O2. Net -6.7 L. Continues to be on heparin drip. Patient appears to be better optimized with regards to heart failure. Pending UA to check for proteinuria. Cardiology consulted today to assist with management of CHF, neck steps regarding ischemic evaluation with possible stress test versus angiogram. Echocardiogram showing LVEF of 60%, no regional wall motion abnormalities, grade 2 diastolic dysfunction. Attestations 2 Medical Necessity Statement*: Continue IV diuresis with Lasix, currently on heparin drip, cardiology consulted today to assist with further management. Coding Level of Care Code Acute Code for Chg Fwd Moderate MDM includes number and complexity of problems actively addressed during encounter, amount and/or complexity of data reviewed/ordered and described risk of complication, morbidity or mortality of management as documented Diagnoses Congestive heart failure I50.9 Acute kidney injury N17.9 NSTEMI (non-ST elevated myocardial infarction) I21.4 Hypoxia R09.02 New onset of congestive heart failure I50.9
--- NOTE | 2024-03-11 16:55 | P.CONIM_ITS ---
Documented by User: Saqib Gant MD 03/11/24 20:39 Providers/Reason For Consult 2 Consulting Physician/Specialty*: ITZEL Gant/Cardiology Attending Physician: Luciana Caldwell MD Primary Care Provider: SHELLEY Mackay History of Present Illness History of Present Illness Mellisa Matthews is a 48 year old female without previous history of coronary disease CHF, presented to hospital with orthopnea ,PND ,weight gain and leg swelling. Patient is denying history of sleep apnea, no previous history of stents, but she is endorsing history of hypertension ,diabetes and dyslipidemia. She does have chronic kidney disease and current creat at 2.2. GFR 23. Patient with anemia. Patient stating that her symptoms started a week before [facility] and since then she has been noticing worsening edema and shortness of breath. Patient reports that her father had heart attack at age 18. She states she recently saw a landmen Dr. Alexandre at [place] for evaluation of a heart murmur. She underwent a stress test and an echocardiogram. The stress test apparently was unremarkable. She was told she needed a cardiac calcium screening, but couldn't afford the test. She was found to have troponin elevation [id number] delta negative. EKG showing nonspesific T wave abnormalities w/o acute ischemia. Echo showed normal EF with grade II/IV diastolic dysfunction. At this time, patient denies any chest pain. She has diffuse pitting edema to bilateral lower extremities. She states she has had chest pain in the past at the center of her chest, mainly when she coughs or exerts herself. Currently patient is taking nifedipine 60 mg, metoprolol 25 MG q12, and lasix 20 mg daily with good output. She is negative over 5 liters over 24 hours. She has lost 7 pounds in 1 day. She has no fever, chills or cough. Has a history of major depression and? Psychosis. She is on disability. Denies any smoking abuse or alcohol abuse. Review of Systems 2 Narrative: CONSTITUTIONAL: No fever or chills. EYES: No blurring of vision or other visual disturbances lately. ENT: No hoarseness of voice, auditory disturbances or sore throat. CARDIOVASCULAR: As mentioned above. RESPIRATORY: No significant cough. GASTROINTESTINAL: No hematemesis or melena. GENITOURINARY: As mentioned above INTEGUMENTARY: No skin rashes or history of skin cancer. NEURO: No transient ischemic attacks or amaurosis. PSYCHIATRIC: As mentioned above HEMATOLOGIC: Anemia ENDOCRINE: No history of polyuria or polydipsia. MUSCULOSKELETAL: No recent joint pain or swelling. ALLERGY/IMMUNOLOGY: As mentioned above. Medications/Allergies Home Medications Medication Instructions Recorded Confirmed Last Taken Type aspirin 81 mg capsule 81 mg PO DAILY 03/10/24 03/10/24 03/09/24 History fenofibrate 150 mg capsule 150 mg PO DAILY 03/10/24 03/10/24 03/09/24 History ibuprofen 800 mg tablet 800 mg PO BID PRN Pain 03/10/24 03/10/24 03/09/24 History insulin glargine 100 unit/mL (3 See Rx Instructions .Route .COMPLEX 03/10/24 03/10/24 03/09/24 History mL) subcutaneous pen (Lantus Solostar U-100 Insulin) insulin lispro 100 unit/mL See Rx Instructions .Route .COMPLEX 03/10/24 03/10/24 03/09/24 History subcutaneous solution lisinopril 20 mg tablet 20 mg PO DAILY 03/10/24 03/10/24 03/09/24 History nifedipine 60 mg tablet,extended 60 mg PO DAILY 03/10/24 03/10/24 03/09/24 History release pioglitazone 30 mg tablet 30 mg PO DAILY 03/10/24 03/10/24 03/09/24 History potassium chloride 10 mEq 10 meq PO DAILY 03/10/24 03/10/24 03/09/24 History capsule,extended release rosuvastatin 40 mg tablet 40 mg PO DAILY 03/10/24 03/10/24 03/09/24 History Allergies Allergy/AdvReac Type Severity Reaction Status Date / Time Iodinated Contrast Media Allergy ALGY-Hives Verified 03/09/24 21:20 morphine Allergy ALGY-Hives Verified 03/09/24 21:20 Current Medications Generic Name Dose Route Start Last Admin Trade Name Regan PRN Reason Stop Dose Admin Aspirin 81 mg 03/10/24 09:00 03/11/24 08:15 Aspirin 81 Mg Ec Tablet PO 81 mg DAILY KATT Administration Atorvastatin Calcium 80 mg 03/10/24 09:00 03/11/24 08:16 Atorvastatin 40 Mg Tablet PO 80 mg DAILY KATT Administration Clopidogrel Bisulfate 75 mg 03/10/24 09:00 12/09/24 08:15 Clopidogrel 75 Mg Tablet PO 75 mg DAILY KATT Administration Furosemide 20 mg 03/11/24 14:45 03/11/24 16:27 Furosemide 10 Mg/Ml Sdv 2ml IVP 20 mg Q12H KATT Administration Heparin Sodium (Porcine) 0 unit 03/10/24 01:17 03/10/24 21:45 Heparin 5,000 Unit/Ml Inj 1 Ml IVP 4,200 unit PRN PRN Administration Heparin Weight Based Protocol -Subsequent Bolus Protocol Heparin Sodium/Sodium Chloride 25,000 unit in 500 mls @ 0 mls/hr 03/10/24 02:00 03/11/24 13:57 Heparin Drip IV 11.42 unit/kg/hr CONT KATT 23 mls/hr Titration Protocol Per Protocol Insulin Human Lispro 0 unit 03/10/24 18:00 03/11/24 11:58 Insulin Lispro 100 Unit/1 Ml SUBCUT Not Given WM&BEDTIME KATT Protocol Metoprolol Tartrate 25 mg 03/11/24 14:00 03/11/24 14:04 Metoprolol Tartrate 25 Mg Tablet PO 25 mg Q12H KATT Administration Nifedipine 60 mg 03/11/24 09:00 03/11/24 08:16 Nifedipine Er (24 Hr) 30 Mg Tablet PO 60 mg DAILY KATT Administration Potassium Chloride 40 meq 03/10/24 01:45 03/11/24 08:16 Potassium Chloride Er 20 Meq Tablet PO 40 meq DAILY KATT Administration Senna/Docusate Sodium 2 tab 03/10/24 09:00 03/11/24 08:16 Sennosides-Docusate Tablet PO Not Given BID KATT PFSH Acute 2 PFSH: Medical History section wound seroma, Hypertension Diabetes Family History Father CAD (coronary artery disease) Vitals/I&O/Wt Last Vital Signs Temp 98.4 F 03/11/24 11:51 Pulse 82 03/11/24 16:44 Resp 19 H 03/11/24 16:44 BP 115/80 03/11/24 16:44 Pulse Ox 94 03/11/24 16:44 O2 Del Method Room Air 03/11/24 13:36 O2 Flow Rate 2 03/10/24 10:47 03/11/24 03/11/24 03/11/24 06:59 14:59 22:59 Intake Total 196.650 / 1743.233 759.95 / 759.95 Output Total 1550 / 8250 1999 Balance -1353.350 / -6506.767 -1240.05 / -1240.05 Weight last 48 hrs Weight 222 lb 14.4 oz Weight 229 lb 11.2 oz Weight 229 lb 11.2 oz Weight 222 lb Physical Exam 2 Narrative: GENERAL: The patient is alert and oriented times three. Not in any acute distress. HEENT: No significant pallor, icterus or lymphadenopathy.Oral cavity: There are no mucous membrane lesions. NECK: Trachea appears to be central. No masses noted. No JVD or thyromegaly appreciated. RESPIRATORY: Chest is symmetrical. No intercostals muscle retraction or any accessory muscle activation. There is no chest wall tenderness. Breath sounds are heard bilaterally. No rales or rhonchi heard. No evidence of any consolidation. BREASTS: Deferred. HEART: The heart sounds are normal. No S3 or S4. Short systolic murmur on the left sternal border. No diastolic murmurs. No pericardial rub ABDOMEN: No vessel pulsations or distention. No tenderness. No organomegaly appreciated. Bowel sounds are normally heard. : Deferred. RECTAL: Deferred. LYMPHATIC: No lymphadenopathy noted in the neck. EXTREMITIES: 2+ edema both lower extremities. MUSCULOSKELETAL: No acute joint deformities or swelling SKIN: There are no significant rashes or ecchymosis NEUROPSYCHIATRIC: The patient is alert and oriented x3. Appears to be in a good mood. No tremors or rigidity noted. Urinary Catheter Management: Mayorga Latex: Cath Placed During This Visit: yes Urinary Catheter Date of Insertion: 03/10/24 Urinary Catheter Time of Insertion: 01:30 Data 03/12/24 02:59 03/11/24 04:58 Other Labs: Laboratory Last Values WBC 7.83 10^3/uL (3.29-11.43) 03/11/24 04:58 RBC 3.41 10^6/uL (3.85-5.65) L 03/11/24 04:58 Hgb 9.80 g/dL (11.27-16.99) L 03/11/24 04:58 Hct 30.8 % (36-47) L 03/11/24 04:58 MCV 90.3 fl (85-98) 03/11/24 04:58 MCH 28.7 pg (27-33) 03/11/24 04:58 MCHC 31.8 g/dL (30-55) 03/11/24 04:58 RDW 13.3 % (12.1-15.1) 03/11/24 04:58 Plt Count 317 10^3/cmm (157-399) 03/11/24 04:58 MPV 9.5 fL (7.4-10.4) 03/11/24 04:58 Neut % (Auto) 42.1 % 03/11/24 04:58 Lymph % (Auto) 30.5 % 03/11/24 04:58 [place] % (Auto) 8.0 % 03/11/24 04:58 Eos % (Auto) 17.8 % 03/11/24 04:58 Baso % (Auto) 1.3 % 03/11/24 04:58 Neut # (Auto) 3.30 10^3/uL (1.8-7.7) 03/11/24 04:58 Lymph # (Auto) 2.4 10^3/uL (0.8-4.8) 03/11/24 04:58 [place] # (Auto) 0.6 10^3/uL (0.2-0.9) 03/11/24 04:58 Eos # (Auto) 1.4 10^3/uL (0.0-0.8) H 03/11/24 04:58 Baso # (Auto) 0.1 10^3/uL (0.0-0.1) 03/11/24 04:58 Nucleated RBC % (auto) 0 % 03/11/24 04:58 Nucleated RBCs # 0.0 /100WBC 03/11/24 04:58 APTT 40.4 SECONDS (23.9-36.7) H 03/11/24 19:26 D-Dimer 0.89 ug/mLFEU (0-0.59) H 03/09/24 22:50 Specimen Type Arterial 03/09/24 20:01 Sample Site Radial, left 03/09/24 20:01 ABG pH 7.53 (7.35-7.45) H 03/09/24 20:01 ABG pCO2 34.9 mmHg (35-45) L 03/09/24 20:01 ABG pO2 149.0 mmHg (80.0-100.0) H 03/09/24 20:01 ABG HCO3 29.1 mmol/L (22-26) H 03/09/24 20:01 ABG Base Excess 6.1 mmol/L (-2.0-2.0) H 03/09/24 20:01 Josafat Test Pos 03/09/24 20:01 Hematocrit 31.6 % (37-47) L 03/09/24 20:01 Hgb O2 Saturation 97.8 % (95-100) 03/09/24 20:01 Carboxyhemoglobin 0.8 %THgb (0.4-20.1) 03/09/24 20:01 Methemoglobin 1.4 % (0.4-1.5) 03/09/24 20:01 Total Hemoglobin 10.3 g/dL (12-16) L 03/09/24 20:01 O2 Delivery Device Nc 03/09/24 20:01 O2 Liters/Min 4.0 % 03/09/24 20:01 Flavorings Compounder ID [email or web address] 03/09/24 20:01 Sodium 139 mmol/L (136-145) 03/11/24 04:58 Potassium 3.7 mmol/L (3.5-5.1) 03/11/24 04:58 Chloride 103 mmol/L (98-107) 03/11/24 04:58 Carbon Dioxide 29 mmol/L (22-29) 03/11/24 04:58 Anion Gap 10.7 (5-19) 03/11/24 04:58 BUN 14 mg/dL (6-20) 03/11/24 04:58 Creatinine 2.2 mg/dL (0.5-0.9) H 03/11/24 04:58 GFR Calculation 23.7 mL/min (90-130) L 03/11/24 04:58 Glucose 104 mg/dL (65-115) 03/11/24 04:58 POC Glucose 99 mg/dL (70-110) 03/11/24 17:10 Estimat Average Glucose 126 03/11/24 04:58 Hemoglobin A1c 6.0 % (4.0-6.0) 03/11/24 04:58 Calculated Osmolality 289 mOsm/kg (285-295) 03/11/24 04:58 Lactic Acid 0.9 mmol/L (0.5-2.2) 03/09/24 22:50 Calcium 8.4 mg/dL (8.5-10.5) L 03/11/24 04:58 Phosphorus 4.2 mg/dL (2.5-4.5) 03/10/24 04:48 Magnesium 2.0 mg/dL (1.7-2.3) 03/11/24 04:58 Total Bilirubin 0.2 mg/dL (0.15-1.2) 03/11/24 04:58 AST 21 U/L (0-32) 03/11/24 04:58 ALT 14 U/L (0-33) 03/11/24 04:58 Alkaline Phosphatase 41 U/L (35-105) 03/11/24 04:58 Troponin T Baseline 198 ng/L (0-10) H* 03/09/24 22:50 Troponin T 120 Minute 188.0 ng/L (0-10) H 03/10/24 00:52 Delta Troponin T -10.0 ABS# (0-10) L 03/10/24 00:52 Troponin T Hi Sens 6Hr 207.4 ng/L (0-10) H 03/10/24 04:48 Troponin T Hi Sens 6Hr Delta 9.4 ng/L (0-12) 03/10/24 04:48 NT-Pro-B Natriuret Pep 3819 pg/mL (0-125) H 03/09/24 22:50 Total Protein 4.1 g/dL (6.6-8.7) L 03/11/24 04:58 Albumin 1.8 g/dL (3.5-5.2) L 03/11/24 04:58 Globulin 2.3 g/dL (1.3-4.6) 03/11/24 04:58 Lipase 21 U/L (13-60) 03/09/24 22:50 Vitamin B12 371 pg/mL (232-1245) 03/10/24 04:48 TSH 3.56 uIU/mL (0.27-4.20) 03/10/24 04:48 Coronavirus (PCR) Negative (Negative) 03/09/24 22:25 Influenza A (PCR) Negative (Negative) 03/09/24 22:25 Influenza Type B (PCR) Negative (Negative) 03/09/24 22:25 RSV (PCR) Negative (Negative) 03/09/24 22:25 EKG 1: My Interpretation: The EKG showed a sinus tachycardia with a rate of 102 bpm. Nonspecific T wave changes. Poor R wave progression. A&P Assessment and plan (1) Congestive heart failure: Apparently the patient was told to have heart pumping function of 41% by her landmen at the [facility] in [facility]. As of now we do not have the medical records. She has clinical features of biventricular failure. Qualifiers: Heart failure chronicity: unspecified Heart failure type: unspecified Qualified Code(s): I50.9 - Heart failure, unspecified (2) Elevated troponin: Most likely from type II NE. No acute ischemic EKG changes. (3) Acute kidney injury: This could be multifactorial. Her history of uncontrolled diabetes could be a contributing factor. Heart failure causing acute kidney injury also could be a contributing factor. (4) Benign hypertension: The blood pressure is elevated of stage II. The antihypertensive medications need to be optimized. (5) T2DM (type 2 diabetes mellitus): Aggressive management of the diabetes would be appropriate. Qualifiers: Diabetes mellitus complication status: without complication Diabetes mellitus chcf insulin use: with chcf use Qualified Code(s): E11.9 - Type 2 diabetes mellitus without complications; Z79.4 - intermediate frame tender (current) use of insulin Plan The problems are Anemia Dyslipidemia ? Bipolar disorder Patient had an echocardiogram today. I will be reviewing the echocardiogram. She may be treated with IV diuretics and other symptomatic measures. Antihypertensive medications need to be optimized. I will get the medical records from [facility] in [facility]. Based on the clinical progress, further recommendations will be made. Thank you for the opportunity to evaluate this patient and make these recommendations Consult Attestations 2 Medical Necessity Statement: Patient requires continued hospital stay for close monitoring and further management Coding Level of Care Code 84574 Diagnoses Congestive heart failure, unspecified HF chronicity, unspecified heart failure type I50.9 Heart failure chronicity: unspecified Heart failure type: unspecified Elevated troponin R79.89 Acute kidney injury N17.9 Benign hypertension I10 Type 2 diabetes mellitus without complication, with long-term current use of insulin E11.9; Z79.4 Diabetes mellitus complication status: without complication Diabetes mellitus long term acute care registered nurse insulin use: with long term acute care registered nurse use Documented by User: Nel Crocker NP 03/12/24 08:09 Providers/Reason For Consult 2 Reason for Consult*: Acute diastolic heart failure exacerbation Requesting Physician: Dr. Caldwell History of Present Illness History of Present Illness Mellisa Matthews is a 48 year old female without previous history of coronary disease CHF, presented to hospital with orthopnea and PND weight gain. Patient is denying history of sleep apnea, no previous history of stents, but she is endorsing history of hypertension or diabetes. She does have chronic kidney disease and current creat at 2.2. GFR 23. Patient with anemia. Patient stating that her symptoms started a week before and since then she has been noticing worsening edema. Patient reports that her father had heart attack at age 18. She states she recently saw a landmen Dr. Alexandre at [place] in which she underwent a stress test in which she says was negative. She was told she needed a cardiac calcium screening, but couldn't afford the test. Upon further workup significant troponin elevation [id number] delta negative. EKG showing nonspesific T wave abnormalities w/o acute ischemia. Echo showed normal EF with grade II/IV diastolic dysfunction. At the time, patient denies any chest pain. She has diffuse pitting edema to bilateral lower extremities. She states she has had chest pain in the past at the center of her chest, mainly when she coughs or exerts herself. Currently patient is taking nifedipine 60 mg, metoprolol 25 MG q12, and lasix 20 mg daily with good output. She is negative over 5 liters over 24 hours. She has lost 7 pounds in 1 day. Medications/Allergies Home Medications Medication Instructions Recorded Confirmed Last Taken Type aspirin 81 mg capsule 81 mg PO DAILY 03/10/24 03/10/24 03/09/24 History fenofibrate 150 mg capsule 150 mg PO DAILY 03/10/24 03/10/24 03/09/24 History ibuprofen 800 mg tablet 800 mg PO BID PRN Pain 03/10/24 03/10/24 03/09/24 History insulin glargine 100 unit/mL (3 See Rx Instructions .Route .COMPLEX 03/10/24 03/10/24 03/09/24 History mL) subcutaneous pen (Lantus Solostar U-100 Insulin) insulin lispro 100 unit/mL See Rx Instructions .Route .COMPLEX 03/10/24 03/10/24 03/09/24 History subcutaneous solution lisinopril 20 mg tablet 20 mg PO DAILY 03/10/24 03/10/24 03/09/24 History nifedipine 60 mg tablet,extended 60 mg PO DAILY 03/10/24 03/10/24 03/09/24 History release pioglitazone 30 mg tablet 30 mg PO DAILY 03/10/24 03/10/24 03/09/24 History potassium chloride 10 mEq 10 meq PO DAILY 03/10/24 03/10/24 03/09/24 History capsule,extended release rosuvastatin 40 mg tablet 40 mg PO DAILY 03/10/24 03/10/24 03/09/24 History Allergies Allergy/AdvReac Type Severity Reaction Status Date / Time Iodinated Contrast Media Allergy ALGY-Hives Verified 03/09/24 21:20 morphine Allergy ALGY-Hives Verified 03/09/24 21:20 PFSH Acute 2 PFSH: Medical History section wound seroma, Hypertension Diabetes Family History Father CAD (coronary artery disease) Physical Exam 2 Urinary Catheter Management: Mayorga Latex: Cath Placed During This Visit: yes Data 03/12/24 02:59 03/11/24 04:58 Other data: CTA chest abdomen/pelvis IMPRESSION: 1. Small bilateral pleural effusions with adjacent relaxation atelectasis and diffuse anasarca may represent fluid overload. 2. Trace free pelvic fluid may be physiologic. 3. Moderate colonic stool can be seen with constipation. 4. Fecalization of intraluminal contents within mid to distal small bowel loops may represent enteritis and/or hypomotility. Echo CONCLUSIONS Normal left ventricular size, systolic function and wall thickness, with no regional wall motion abnormalities. Left ventricular ejection fraction is estimated at 60 %.Grade II/IV diastolic dysfunction, moderately elevated filling pressures. Mildly thickened mitral valve. No mitral valve stenosis. Trace mitral valve regurgitation. Aortic valve sclerosis. No aortic valve stenosis. Trace aortic valve regurgitation. There is no pericardial effusion. Right atrial pressure is around 5 mm of mercury. A&P Assessment and plan (1) Congestive heart failure: Qualifiers: Heart failure chronicity: unspecified Heart failure type: unspecified Qualified Code(s): I50.9 - Heart failure, unspecified (2) Elevated troponin: (3) Acute kidney injury: (4) Benign hypertension: (5) T2DM (type 2 diabetes mellitus): Qualifiers: Diabetes mellitus complication status: without complication Diabetes mellitus chcf insulin use: with long term acute care registered nurse use Qualified Code(s): E11.9 - Type 2 diabetes mellitus without complications; Z79.4 - senior care (current) use of insulin Coding Level of Care Code 10922 Diagnoses Congestive heart failure, unspecified HF chronicity, unspecified heart failure type I50.9 Heart failure chronicity: unspecified Heart failure type: unspecified Elevated troponin R79.89 Acute kidney injury N17.9 Benign hypertension I10 Type 2 diabetes mellitus without complication, with long-term current use of insulin E11.9; Z79.4 Diabetes mellitus complication status: without complication Diabetes mellitus long term acute care registered nurse insulin use: with chcf use
[2024-03-11 17:28] LABS: Glucose Point of Care 99 mg/dL (70-110)
[2024-03-11 20:23] LABS: Partial Thromboplastin Time 40.4 SECONDS (23.9-36.7)
[2024-03-11 20:36] LABS: Glucose Point of Care 172 mg/dL (70-110)
[2024-03-11] MEDS: insulin lispro 100 unit/1 mL SUBCUT (22:02)
[2024-03-11] MEDS: heparin drip 25,000 UNIT/500 ML PREMIX 27 UNIT IV (22:03)
[2024-03-11 23:37] LABS: Bilirubin Urine Negative (Negative); Blood Urine 2+ (Negative); Glucose Urine UA 2+ (Normal); Ketones Urine Trace (Negative); Leukocyte Esterase Urine Trace (Negative); Nitrate Urine Negative (Negative); Protein Urine 3+ (Negative); Specific Gravity, Urine 1.014 (1.005-1.030); Urine Appearance Clear (CLEAR); Urine Color Yellow (Yellow); Urobilinogen Urine 0.2 mg/dL (Negative); pH Urine 7.5 (5-7)
[2024-03-11 23:55] LABS: Add Urine Microscopic? YES; RBC Urine 0-4 /hpf (0-2); Squamous Epithelial Cell Urine 0-4 /hpf (0-5); UA Manual Slide Review YES
[2024-03-11 23:56] LABS: Bacteria Urine TRACE /hpf; Mucus Urine 1+ /hpf
[2024-03-12] VITALS (10 sets, daily range): BP systolic 121–182; BP diastolic 70–86; PULSE 74–90; RESP 12–22; TEMP 36.5–37.3; O2SAT 94–98; BMI 34.2
[2024-03-12] MEDS: FUROsemide 10 mg/mL SDV 2mL 20 MG IVP ×2 (02:21→14:37)
[2024-03-12] MEDS: metoprolol tartrate 25 mg Tablet PO (02:21)
[2024-03-12 03:13] LABS: Platelet Count 390 10^3/cmm (157-399)
[2024-03-12 03:29] LABS: Partial Thromboplastin Time 68.3 SECONDS (23.9-36.7)
[2024-03-12 06:22] LABS: Glucose Point of Care 125 mg/dL (70-110)
[2024-03-12] MEDS: clopidogrel 75 mg Tablet PO (08:16)
[2024-03-12] MEDS: aspirin 81 mg EC Tablet PO (08:16)
[2024-03-12] MEDS: atorvastatin 40 mg Tablet 80 MG PO (08:17)
[2024-03-12] MEDS: NIFEdipine ER (24 hr) 30 mg Tablet 60 MG PO (08:17)
[2024-03-12] MEDS: sennosides-docusate Tablet 2 TAB PO (08:17)
[2024-03-12] MEDS: potassium chloride ER 20 mEq Tablet 40 MEQ PO (08:17)
--- NOTE | 2024-03-12 09:03 | P.PN_ITS ---
Documented by User: Saqib Gant MD 03/12/24 23:14 Subjective 2 Medications: Medication Review Details: Current Medications Acetaminophen (Acetaminophen 500 Mg Tablet) 500 mg PO Q4H PRN PRN Reason: fever Albuterol/Ipratropium (Ipratropium-Albuterol 3 Ml Neb) 3 ml INHALATION Q6H PRN PRN Reason: SHORTNESS OF BREATH Aspirin (Aspirin 81 Mg Ec Tablet) 81 mg PO DAILY [facility] Last Admin: 03/12/24 08:16 Dose: 81 mg Atorvastatin Calcium (Atorvastatin 40 Mg Tablet) 80 mg PO DAILY [facility] Last Admin: 03/12/24 08:17 Dose: 80 mg Clopidogrel Bisulfate (Clopidogrel 75 Mg Tablet) 75 mg PO DAILY [facility] Last Admin: 03/12/24 08:16 Dose: 75 mg Furosemide (Furosemide 10 Mg/Ml Sdv 2ml) 20 mg IVP Q12H [facility] Last Admin: 03/12/24 02:21 Dose: 20 mg Glucagon (Glucagon 1 Mg/Ml Kit 1 Ml) 1 mg IM ONCE PRN; Protocol PRN Reason: Adult Acute Hypoglycemia Nursing Prot. Heparin Sodium (Porcine) (Heparin 5,000 Unit/Ml Inj 1 Ml) 0 unit IVP PRN PRN; Protocol PRN Reason: Heparin Weight Based Protocol -Subsequent Bolus Last Admin: 03/10/24 21:45 Dose: 4,200 unit Hydralazine HCl (Hydralazine 25 Mg Tablet) 25 mg PO TID [facility] Heparin Sodium/Sodium Chloride (Heparin Drip) 25,000 unit in 500 mls @ 0 mls/hr IV CONT [facility]; Protocol Last Titration: 03/12/24 03:54 Dose: 13.41 unit/kg/hr, 27 mls/hr Dextrose (D5w) 500 mls @ 0 mls/hr IV ONCE PRN; Protocol PRN Reason: Adult Acute Hypoglycemia Prot Dextrose (D10w) 125 mls @ 750 mls/hr IV PRN PRN; Protocol PRN Reason: Adult Acute Hypoglycemia Nursing Protocol Dextrose (D10w) 250 mls @ 1,000 mls/hr IV PRN PRN; Protocol PRN Reason: Adult Acute Hypoglycemia Nursing Protocol Insulin Human Lispro (Insulin Lispro 100 Unit/1 Ml) 0 unit SUBCUT WM&BEDTIME [facility]; Protocol Last Admin: 03/12/24 07:57 Dose: Not Given Metoprolol Tartrate (Metoprolol Tartrate 25 Mg Tablet) 25 mg PO Q12H [facility] Last Admin: 03/12/24 02:21 Dose: 25 mg Nifedipine (Nifedipine Er (24 Hr) 30 Mg Tablet) 60 mg PO DAILY [facility] Last Admin: 03/12/24 08:17 Dose: 60 mg Ondansetron HCl (Ondansetron 2 Mg/Ml Sdv 2 Ml) 4 mg IVP Q6H PRN PRN Reason: NAUSEA AND VOMITING Potassium Chloride (Potassium Chloride Er 20 Meq Tablet) 40 meq PO DAILY [facility] Last Admin: 03/12/24 08:17 Dose: 40 meq Senna/Docusate Sodium (Sennosides-Docusate Tablet) 2 tab PO BID [facility] Last Admin: 03/12/24 08:17 Dose: 2 tab Vitals/I&O/Wt Last Vital Signs Temp 98.4 F 03/12/24 08:00 Pulse 90 03/12/24 08:11 Resp 16 03/12/24 08:11 BP 182/86 03/12/24 08:00 Pulse Ox 94 03/12/24 08:11 O2 Del Method Room Air 03/12/24 08:11 O2 Flow Rate 2 03/12/24 08:00 03/11/24 03/12/24 03/12/24 22:59 06:59 14:59 Intake Total 376.367 / 1136.317 157.95 / 1294.267 Output Total 1700 / 3700 1817 / 5517 Balance -1323.633 / -2563.683 -1659.05 / -4222.733 Weight last 48 hrs Weight 212 lb 8 oz Weight 222 lb 14.4 oz Physical Exam 2 Narrative: GENERAL: The patient is alert and oriented times three. Not in any acute distress. HEENT: No significant pallor, icterus or lymphadenopathy.Oral cavity: There are no mucous membrane lesions. NECK: Trachea appears to be central. No masses noted. No JVD or thyromegaly appreciated. RESPIRATORY: Chest is symmetrical. No intercostals muscle retraction or any accessory muscle activation. There is no chest wall tenderness. Breath sounds are heard bilaterally. No rales or rhonchi heard. No evidence of any consolidation. BREASTS: Deferred. HEART: The heart sounds are normal. No S3 or S4. Short systolic murmur on the left sternal border. No diastolic murmurs. No pericardial rub ABDOMEN: No vessel pulsations or distention. No tenderness. No organomegaly appreciated. Bowel sounds are normally heard. : Deferred. RECTAL: Deferred. LYMPHATIC: No lymphadenopathy noted in the neck. EXTREMITIES: 1-2+ edema both lower extremities. MUSCULOSKELETAL: No acute joint deformities or swelling SKIN: There are no significant rashes or ecchymosis NEUROPSYCHIATRIC: The patient is alert and oriented x3. Appears to be in a good mood. No tremors or rigidity noted. Urinary Catheter Management: Mayorga Latex: Cath Placed During This Visit: yes Urinary Catheter Date of Insertion: 03/10/24 Urinary Catheter Time of Insertion: 01:30 Data 03/12/24 02:59 03/11/24 04:58 Other Labs: Laboratory Last Values WBC 7.83 10^3/uL (3.29-11.43) 03/11/24 04:58 RBC 3.41 10^6/uL (3.85-5.65) L 03/11/24 04:58 Hgb 9.80 g/dL (11.27-16.99) L 03/11/24 04:58 Hct 30.8 % (36-47) L 03/11/24 04:58 MCV 90.3 fl (85-98) 03/11/24 04:58 MCH 28.7 pg (27-33) 03/11/24 04:58 MCHC 31.8 g/dL (30-55) 03/11/24 04:58 RDW 13.3 % (12.1-15.1) 03/11/24 04:58 Plt Count 390 10^3/cmm (157-399) 03/12/24 02:59 MPV 9.5 fL (7.4-10.4) 03/11/24 04:58 Neut % (Auto) 42.1 % 03/11/24 04:58 Lymph % (Auto) 30.5 % 03/11/24 04:58 [place] % (Auto) 8.0 % 03/11/24 04:58 Eos % (Auto) 17.8 % 03/11/24 04:58 Baso % (Auto) 1.3 % 03/11/24 04:58 Neut # (Auto) 3.30 10^3/uL (1.8-7.7) 03/11/24 04:58 Lymph # (Auto) 2.4 10^3/uL (0.8-4.8) 03/11/24 04:58 [place] # (Auto) 0.6 10^3/uL (0.2-0.9) 03/11/24 04:58 Eos # (Auto) 1.4 10^3/uL (0.0-0.8) H 03/11/24 04:58 Baso # (Auto) 0.1 10^3/uL (0.0-0.1) 03/11/24 04:58 Nucleated RBC % (auto) 0 % 03/11/24 04:58 Nucleated RBCs # 0.0 /100WBC 03/11/24 04:58 APTT 68.3 SECONDS (23.9-36.7) H D 03/12/24 02:59 D-Dimer 0.89 ug/mLFEU (0-0.59) H 03/09/24 22:50 Specimen Type Arterial 03/09/24 20:01 Sample Site Radial, left 03/09/24 20:01 ABG pH 7.53 (7.35-7.45) H 03/09/24 20:01 ABG pCO2 34.9 mmHg (35-45) L 03/09/24 20:01 ABG pO2 149.0 mmHg (80.0-100.0) H 03/09/24 20:01 ABG HCO3 29.1 mmol/L (22-26) H 03/09/24 20:01 ABG Base Excess 6.1 mmol/L (-2.0-2.0) H 03/09/24 20:01 Josafat Test Pos 03/09/24 20:01 Hematocrit 31.6 % (37-47) L 03/09/24 20:01 Hgb O2 Saturation 97.8 % (95-100) 03/09/24 20:01 Carboxyhemoglobin 0.8 %THgb (0.4-20.1) 03/09/24 20:01 Methemoglobin 1.4 % (0.4-1.5) 03/09/24 20:01 Total Hemoglobin 10.3 g/dL (12-16) L 03/09/24 20:01 O2 Delivery Device Nc 03/09/24 20:01 O2 Liters/Min 4.0 % 03/09/24 20:01 Product Management Manager ID [email or web address] 03/09/24 20:01 Sodium 139 mmol/L (136-145) 03/11/24 04:58 Potassium 3.7 mmol/L (3.5-5.1) 03/11/24 04:58 Chloride 103 mmol/L (98-107) 03/11/24 04:58 Carbon Dioxide 29 mmol/L (22-29) 03/11/24 04:58 Anion Gap 10.7 (5-19) 03/11/24 04:58 BUN 14 mg/dL (6-20) 03/11/24 04:58 Creatinine 2.2 mg/dL (0.5-0.9) H 03/11/24 04:58 GFR Calculation 23.7 mL/min (90-130) L 03/11/24 04:58 Glucose 104 mg/dL (65-115) 03/11/24 04:58 POC Glucose 125 mg/dL (70-110) H 03/12/24 06:14 Estimat Average Glucose 126 03/11/24 04:58 Hemoglobin A1c 6.0 % (4.0-6.0) 03/11/24 04:58 Calculated Osmolality 289 mOsm/kg (285-295) 03/11/24 04:58 Lactic Acid 0.9 mmol/L (0.5-2.2) 03/09/24 22:50 Calcium 8.4 mg/dL (8.5-10.5) L 03/11/24 04:58 Phosphorus 4.2 mg/dL (2.5-4.5) 03/10/24 04:48 Magnesium 2.0 mg/dL (1.7-2.3) 03/11/24 04:58 Total Bilirubin 0.2 mg/dL (0.15-1.2) 03/11/24 04:58 AST 21 U/L (0-32) 03/11/24 04:58 ALT 14 U/L (0-33) 03/11/24 04:58 Alkaline Phosphatase 41 U/L (35-105) 03/11/24 04:58 Troponin T Baseline 198 ng/L (0-10) H* 03/09/24 22:50 Troponin T 120 Minute 188.0 ng/L (0-10) H 03/10/24 00:52 Delta Troponin T -10.0 ABS# (0-10) L 03/10/24 00:52 Troponin T Hi Sens 6Hr 207.4 ng/L (0-10) H 03/10/24 04:48 Troponin T Hi Sens 6Hr Delta 9.4 ng/L (0-12) 03/10/24 04:48 NT-Pro-B Natriuret Pep 3819 pg/mL (0-125) H 03/09/24 22:50 Total Protein 4.1 g/dL (6.6-8.7) L 03/11/24 04:58 Albumin 1.8 g/dL (3.5-5.2) L 03/11/24 04:58 Globulin 2.3 g/dL (1.3-4.6) 03/11/24 04:58 Lipase 21 U/L (13-60) 03/09/24 22:50 Vitamin B12 371 pg/mL (232-1245) 03/10/24 04:48 TSH 3.56 uIU/mL (0.27-4.20) 03/10/24 04:48 Urine Color Yellow (Yellow) 03/11/24 23:24 Urine Appearance Clear (CLEAR) 03/11/24 23:24 Urine pH 7.5 (5-7) 03/11/24 23:24 Ur Specific [place] 1.014 (1.005-1.030) 03/11/24 23:24 Urine Protein 3+ (Negative) A 03/11/24 23:24 Urine Glucose (UA) 2+ (Normal) H 03/11/24 23:24 Urine Ketones Trace (Negative) 03/11/24 23:24 Urine Blood 2+ (Negative) A 03/11/24 23:24 Urine Nitrate Negative (Negative) 03/11/24 23:24 Urine Bilirubin Negative (Negative) 03/11/24 23:24 Urine Urobilinogen 0.2 mg/dL (Negative) 03/11/24 23:24 Ur Leukocyte Esterase Trace (Negative) A 03/11/24 23:24 Urine RBC 0-4 /hpf (0-2) H 03/11/24 23:24 Urine WBC 5-10 /hpf (0-5) H 03/11/24 23:24 Ur Squamous Epith Cells 0-4 /hpf (0-5) H 03/11/24 23:24 Amorphous Sediment Not Reportable 03/11/24 23:24 Urine Bacteria Trace /hpf (NONE) 03/11/24 23:24 Urine Mucus 1+ /hpf 03/11/24 23:24 Coronavirus (PCR) Negative (Negative) 03/09/24 22:25 Influenza A (PCR) Negative (Negative) 03/09/24 22:25 Influenza Type B (PCR) Negative (Negative) 03/09/24 22:25 RSV (PCR) Negative (Negative) 03/09/24 22:25 Other data: Echocardiogram from 03/10/2024 CONCLUSIONS Normal left ventricular size, systolic function and wall thickness, with no regional wall motion abnormalities. Left ventricular ejection fraction is estimated at 60 %.Grade II/IV diastolic dysfunction, moderately elevated filling pressures. Mildly thickened mitral valve. No mitral valve stenosis. Trace mitral valve regurgitation. Aortic valve sclerosis. No aortic valve stenosis. Trace aortic valve regurgitation. There is no pericardial effusion. Right atrial pressure is around 5 mm of mercury. A&P Assessment and plan (1) Congestive heart failure: Will optimize the medical treatment. Patient was started on hydralazine. The blood pressure seems to be getting better. Continue on the IV Lasix. Edema seems to be improving. Qualifiers: Heart failure chronicity: unspecified Heart failure type: unspecified Qualified Code(s): I50.9 - Heart failure, unspecified (2) Elevated troponin: Most likely from type II [place]. No acute ischemic EKG changes. We received the medical records from [place]. Patient was found to have no evidence of ischemia based on the perfusion scan. (3) Acute kidney injury: This could be multifactorial. Her history of uncontrolled diabetes could be a contributing factor. Heart failure causing acute kidney injury also could be a contributing factor. The kidney function seems to be stable at this point. (4) Benign hypertension: The blood pressure seems to be getting under control. Will continue to optimize medications. (5) T2DM (type 2 diabetes mellitus): Aggressive management of the diabetes would be appropriate. Qualifiers: Diabetes mellitus complication status: without complication Diabetes mellitus longterm insulin use: with longterm use Qualified Code(s): E11.9 - Type 2 diabetes mellitus without complications; Z79.4 - [facility] (current) use of insulin Plan The problems are Anemia Dyslipidemia ? Bipolar disorder Continue IV diuretics. Continue optimizing the antihypertensive medications. Since there was no evidence of ischemia, based on the perfusion scan, in the absence of any ongoing chest pain, we may hold off on any invasive workup at this point. Attestations 2 Medical Necessity Statement*: Patient requires continued hospital stay for close monitoring and further management Coding Level of Care Code 01345 Diagnoses Congestive heart failure, unspecified HF chronicity, unspecified heart failure type I50.9 Heart failure chronicity: unspecified Heart failure type: unspecified Elevated troponin R79.89 Acute kidney injury N17.9 Benign hypertension I10 Type 2 diabetes mellitus without complication, with long-term current use of insulin E11.9; Z79.4 Diabetes mellitus complication status: without complication Diabetes mellitus longterm insulin use: with longterm use Documented by User: Nel Crocker NP 03/12/24 21:43 Subjective 2 Subjective: Results were reviewed with fishing lure assembler at [facility]. Patient had echo showing EF of 40 to 45% in October of this year. Stress test showed no ischemia. Currently patient is without chest pain. Physical Exam 2 Urinary Catheter Management: Mayorga Latex: Cath Placed During This Visit: yes Data 03/12/24 02:59 03/11/24 04:58 A&P Assessment and plan (1) Congestive heart failure: Qualifiers: Heart failure chronicity: unspecified Heart failure type: unspecified Qualified Code(s): I50.9 - Heart failure, unspecified (2) Elevated troponin: (3) Acute kidney injury: (4) Benign hypertension: (5) T2DM (type 2 diabetes mellitus): Qualifiers: Diabetes mellitus complication status: without complication Diabetes mellitus exterminator helper termite insulin use: with exterminator helper termite use Qualified Code(s): E11.9 - Type 2 diabetes mellitus without complications; Z79.4 - oysterman (current) use of insulin Coding Level of Care Code [id number] Diagnoses Congestive heart failure, unspecified HF chronicity, unspecified heart failure type I50.9 Heart failure chronicity: unspecified Heart failure type: unspecified Elevated troponin R79.89 Acute kidney injury N17.9 Benign hypertension I10 Type 2 diabetes mellitus without complication, with long-term current use of insulin E11.9; Z79.4 Diabetes mellitus complication status: without complication Diabetes mellitus exterminator helper termite insulin use: with longterm use
[2024-03-12] MEDS: hyDRALAzine 25 mg Tablet PO ×3 (09:21→22:10)
--- NOTE | 2024-03-12 10:30 | PC.CHAP ---
Pastoral Care Encounter/Spiritual Assessment Type of Contact [] Declined cable mechanic visit [] Patient/Family/Request visit [] Outpatient visit [] Follow-up visit [] Physician referral [] Code/Alert [x] Routine visit [] Staff referral [] Actively dying [] Patient sleeping [] Family support [] [] Out of room [] Palliative care [] [] Receiving care in room [] Pre-surgical visit [] Trauma [] Long length of stay [] ICU visit [] Other: Relational/Emotional Strength [x] Patient feels connected with others/family/visitors/staff [] Distress [] Loneliness/isolation [] Abandonment Spirituality of Patient [x] Person of Anuradha [] Attends Evangelical of their Anuradha [x] Believes in Prayer [] Reads Bible or Temple materials [] There are Spiritual issues to be addressed Semi Driver Interventions [x] Prayer [x] Active listening [] Non-anxious presence [x] Spiritual/emotional support [] Crisis/trauma care [] Spiritual counseling [] Bereavement support [] Provided bereavement packet [] Provided Bible/devotional materials [] Provided toy/stuffed animal, coloring book to patient or family member [] Provided Communion [] Anointing/[place] [] Salvation [x] Completed spiritual assessment [] Other: Impact on Illness or Injury [] Angry [] Fearful [] Anxious [] Often cries [] Exhaustion [] Unable to work [] Unable to attend sabianism [] Unable to walk/stand [] Unable to read [] Unable to drive [] Unable to eat/drink [] Unable to sleep [] Unable to be with family [] Patient intubated [] Other: Summary Time spent with patient 5 min
[2024-03-12 11:08] LABS: Partial Thromboplastin Time 68.2 SECONDS (23.9-36.7)
[2024-03-12] MEDS: metoprolol tartrate 25 mg Tablet 37.5 MG PO ×2 (12:15→22:10)
[2024-03-12] MEDS: insulin lispro 100 unit/1 mL SUBCUT ×2 (12:15→22:10)
[2024-03-12] MEDS: NIFEdipine ER (24 hr) 30 mg Tablet PO (12:15)
[2024-03-12 12:37] LABS: Glucose Point of Care 155 mg/dL (70-110)
--- NOTE | 2024-03-12 14:51 | PM.PN ---
Subjective Subjective: No new complaints today. States that she feels her breathing slightly better today. She is on 1 L/min supplemental O2 today. Blood pressure systolic continues to be in 170s. Medications: Reviewed: Yes Medication Review Details: Current Medications Acetaminophen (Acetaminophen 500 Mg Tablet) 500 mg PO Q4H PRN PRN Reason: fever Albuterol/Ipratropium (Ipratropium-Albuterol 3 Ml Neb) 3 ml INHALATION Q6H PRN PRN Reason: SHORTNESS OF BREATH Aspirin (Aspirin 81 Mg Ec Tablet) 81 mg PO DAILY [facility] Last Admin: 03/12/24 08:16 Dose: 81 mg Atorvastatin Calcium (Atorvastatin 40 Mg Tablet) 80 mg PO DAILY [facility] Last Admin: 03/12/24 08:17 Dose: 80 mg Clopidogrel Bisulfate (Clopidogrel 75 Mg Tablet) 75 mg PO DAILY [facility] Last Admin: 03/12/24 08:16 Dose: 75 mg Furosemide (Furosemide 10 Mg/Ml Sdv 2ml) 20 mg IVP Q12H [facility] Last Admin: 03/12/24 02:21 Dose: 20 mg Glucagon (Glucagon 1 Mg/Ml Kit 1 Ml) 1 mg IM ONCE PRN; Protocol PRN Reason: Adult Acute Hypoglycemia Nursing Prot. Heparin Sodium (Porcine) (Heparin 5,000 Unit/Ml Inj 1 Ml) 0 unit IVP PRN PRN; Protocol PRN Reason: Heparin Weight Based Protocol -Subsequent Bolus Last Admin: 03/10/24 21:45 Dose: 4,200 unit Hydralazine HCl (Hydralazine 25 Mg Tablet) 25 mg PO TID [facility] Heparin Sodium/Sodium Chloride (Heparin Drip) 25,000 unit in 500 mls @ 0 mls/hr IV CONT [facility]; Protocol Last Titration: 03/12/24 03:54 Dose: 13.41 unit/kg/hr, 27 mls/hr Dextrose (D5w) 500 mls @ 0 mls/hr IV ONCE PRN; Protocol PRN Reason: Adult Acute Hypoglycemia Prot Dextrose (D10w) 125 mls @ 750 mls/hr IV PRN PRN; Protocol PRN Reason: Adult Acute Hypoglycemia Nursing Protocol Dextrose (D10w) 250 mls @ 1,000 mls/hr IV PRN PRN; Protocol PRN Reason: Adult Acute Hypoglycemia Nursing Protocol Insulin Human Lispro (Insulin Lispro 100 Unit/1 Ml) 0 unit SUBCUT WM&BEDTIME [facility]; Protocol Last Admin: 03/12/24 07:57 Dose: Not Given Metoprolol Tartrate (Metoprolol Tartrate 25 Mg Tablet) 25 mg PO Q12H [facility] Last Admin: 03/12/24 02:21 Dose: 25 mg Nifedipine (Nifedipine Er (24 Hr) 30 Mg Tablet) 60 mg PO DAILY [facility] Last Admin: 03/12/24 08:17 Dose: 60 mg Ondansetron HCl (Ondansetron 2 Mg/Ml Sdv 2 Ml) 4 mg IVP Q6H PRN PRN Reason: NAUSEA AND VOMITING Potassium Chloride (Potassium Chloride Er 20 Meq Tablet) 40 meq PO DAILY [facility] Last Admin: 03/12/24 08:17 Dose: 40 meq Senna/Docusate Sodium (Sennosides-Docusate Tablet) 2 tab PO BID [facility] Last Admin: 03/12/24 08:17 Dose: 2 tab Vitals/I&O/Wt Last Vital Signs Temp 98.3 F 03/12/24 11:37 Pulse 80 03/12/24 11:37 Resp 20 H 03/12/24 11:37 BP 176/85 03/12/24 11:37 Pulse Ox 97 03/12/24 11:37 O2 Del Method Nasal Cannula 03/12/24 11:37 O2 Flow Rate 2 03/12/24 11:37 03/11/24 03/12/24 03/12/24 22:59 06:59 14:59 Intake Total 376.367 / 1136.317 157.95 / 1294.267 781.8 / 781.8 Output Total 1700 / 3700 1817 / 5517 Balance -1323.633 / -2563.683 -1659.05 / -4222.733 781.8 / 781.8 Weight last 48 hrs Weight 96.388 kg Weight 101.106 kg Physical Exam Narrative: General: No acute distress, AO x3 HEENT: PERRLA, pupils bilaterally equal and reactive, pallors not present Chest: Normal vesicular breath sounds, no added sounds, equal good air entry bilaterally CVS: S1-S2 regular, no murmurs, no tachycardia, no gallops, no rubs Abdomen: Soft, nontender, no organomegaly, bowel sounds present Neuro: No focal deficits, no facial deformity, AO x3, power 5/5 in all limbs Extremities: Improving lower extremity edema bilaterally Urinary Catheter Management: Mayorga Latex: Cath Placed During This Visit: yes Urinary Catheter Date of Insertion: 03/10/24 Urinary Catheter Time of Insertion: 01:30 Data 03/12/24 02:59 03/11/24 04:58 A&P Assessment and plan (1) Congestive heart failure: Qualifiers: Heart failure chronicity: unspecified Heart failure type: unspecified Qualified Code(s): I50.9 - Heart failure, unspecified (2) Acute kidney injury: (3) NSTEMI (non-ST elevated myocardial infarction): (4) Hypoxia: (5) New onset of congestive heart failure: Plan New onset CHF Non-STEMI Start ACS protocol EKG not showing any ischemic or infarct changes Rule out sleep apnea who request pulse ox study overnight Check TSH and B12 Patient is diabetic with history of hypertension. Once patient becomes euvolemic she will need an angiogram and cardiology consultation Acute on chronic kidney disease Likely cardiorenal Start diuresis once we replenish potassium I do not have previous creatinine to compare her baseline creatinine I am anticipating improvement with diuresis Type 2 diabetes: Insulin dose has been readjusted because of hypoglycemia: Will keep her on sliding scale Hypertension: Avoid nephrotoxic agents, will use hydralazine, metoprolol for now Full code Consistent carb diet DVT prophylaxis: Covered with therapeutic heparin regimen 03/10/2024 Overnight labs and H&P reviewed. Patient is currently on 2 L/min supplemental O2. Bilateral lower extremity edema continues to persist. Troponin series reviewed, baseline at 198, at 2 hours 188, at 6 hours 207, no significant delta at 2 or 6 hours. Favor this to be troponin leak related to CHF. Awaiting echocardiogram to a certain systolic/diastolic dysfunction and regional wall motion abnormalities. Patient is currently not volume optimized. Additional dose of Lasix 40 mg IV now. Closely monitor renal function and urine output. Urine analysis to assess for proteinuria, casts. CT of the abdomen and pelvis showing small bilateral pleural effusions with atelectasis. Bilateral kidneys appearing normal without hydronephrosis. Net -1.5 L since last night. To continue IV diuresis. Once optimized to proceed with cardiac stress test. No current signs or symptoms of localizing infection. Discontinue piperacillin/tazobactam. 03/11/2024 Patient is off supplemental O2. Net -6.7 L. Continues to be on heparin drip. Patient appears to be better optimized with regards to heart failure. Pending UA to check for proteinuria. Cardiology consulted today to assist with management of CHF, neck steps regarding ischemic evaluation with possible stress test versus angiogram. Echocardiogram showing LVEF of 60%, no regional wall motion abnormalities, grade 2 diastolic dysfunction. 03/12/2024 Patient is currently on 1 L/min supplemental O2. She is net -2.2 L last 24 hours. Discontinue IV Lasix. Switch to 40 mg p.o. twice daily. Discontinue heparin, at this point she has been on 48 hours of anticoagulation. Awaiting results of cardiac stress test performed earlier this year at [facility] to be faxed over for further review. Echocardiogram as noted above. Blood pressure continues to be elevated in the 1 70-1 80 range. Metoprolol 25 mg p.o. twice daily was added yesterday. Increase dose to 37.5 mg p.o. twice daily, with plans to uptitrate further if heart rate allows. Increase nifedipine from 60 mg daily to 90 mg daily. Hydralazine 25 mg p.o. 3 times daily additionally added per cardiology. Monitor blood pressure trend with the above changes. Encourage ambulation out of bed mobility. Urine analysis with trace leukocyte esterase, 5-10 WBCs. Patient denied any complaints of dysuria at this time. 3+ urine protein. 24-hour urine protein ordered. Attestations Medical Necessity Statement*: Transition IV to oral diuresis today. Assess for response. Awaiting results of stress test performed at [facility] earlier this year to decide regarding further ischemic evaluation. Coding Level of Care Code Acute Code for Chg Fwd High MDM includes number and complexity of problems actively addressed during encounter, amount and/or complexity of data reviewed/ordered and described risk of complication, morbidity or mortality of management as documented Diagnoses Congestive heart failure, unspecified HF chronicity, unspecified heart failure type I50.9 Heart failure chronicity: unspecified Heart failure type: unspecified Acute kidney injury N17.9 NSTEMI (non-ST elevated myocardial infarction) I21.4 Hypoxia R09.02 New onset of congestive heart failure I50.9
[2024-03-12 16:07] LABS: Glucose Point of Care 136 mg/dL (70-110)
[2024-03-12 20:23] LABS: Glucose Point of Care 207 mg/dL (70-110)
[2024-03-13] VITALS (10 sets, daily range): BP systolic 128–158; BP diastolic 66–81; PULSE 71–87; RESP 16–24; TEMP 36.6–37.1; O2SAT 93–98
[2024-03-13 03:55] LABS: Basophils # 0.1 10^3/uL (0.0-0.1); Basophils % 0.6 %; Eosinophils # 1.1 10^3/uL (0.0-0.8); Eosinophils % 10.5 %; Hematocrit 32.5 % (36-47); Lymphocytes # 1.9 10^3/uL (0.8-4.8); Lymphocytes % 18.3 %; Mean Corpuscular Volume 87.4 fl (85-98); Mean Platelet Volume 9.7 fL (7.4-10.4); Monocytes # 0.8 10^3/uL (0.2-0.9); Monocytes % 8.3 %; Neutrophils % 61.9 %; Nucleated Red Blood Cells % 0 %; Platelet Count 348 10^3/cmm (157-399); Red Blood Count 3.72 10^6/uL (3.85-5.65); Red Cell Distribution Width 12.6 % (12.1-15.1); White Blood Count 10.17 10^3/uL (3.29-11.43)
[2024-03-13 04:17] LABS: Alanine Aminotransferase 14 U/L (0-33); Albumin Level 1.9 g/dL (3.5-5.2); Alkaline Phosphatase 46 U/L (35-105); Anion Gap 10.4 (5-19); Aspartate Amino Transferase 25 U/L (0-32); Blood Urea Nitrogen 18 mg/dL (6-20); Calcium 8.2 mg/dL (8.5-10.5); Carbon Dioxide 28 mmol/L (22-29); Chloride 104 mmol/L (98-107); Creatinine Clr Calc Pharmacy 41.9178; Globulin 2.4 g/dL (1.3-4.6); Glomerular Filtration Rate 28.1 mL/min (90-130); Glucose 164 mg/dL (65-115); Osmolality Calculated 294 mOsm/kg (285-295); Potassium 3.4 mmol/L (3.5-5.1); Sodium 139 mmol/L (136-145); Total Bilirubin 0.2 mg/dL (0.15-1.2); Total Protein 4.3 g/dL (6.6-8.7)
[2024-03-13 06:20] LABS: Glucose Point of Care 150 mg/dL (70-110)
[2024-03-13] MEDS: insulin lispro 100 unit/1 mL SUBCUT ×2 (08:56→17:43)
[2024-03-13] MEDS: atorvastatin 40 mg Tablet 80 MG PO (08:59)
[2024-03-13] MEDS: NIFEdipine ER (24 hr) 30 mg Tablet 90 MG PO (08:59)
[2024-03-13] MEDS: potassium chloride ER 20 mEq Tablet 40 MEQ PO (09:00)
[2024-03-13] MEDS: metoprolol tartrate 25 mg Tablet 37.5 MG PO (09:00)
[2024-03-13] MEDS: clopidogrel 75 mg Tablet PO (09:01)
[2024-03-13] MEDS: FUROsemide 40 mg Tablet PO ×2 (09:01→17:43)
[2024-03-13] MEDS: hyDRALAzine 25 mg Tablet PO ×3 (09:01→21:17)
[2024-03-13] MEDS: aspirin 81 mg EC Tablet PO (09:01)
[2024-03-13 11:46] LABS: Glucose Point of Care 102 mg/dL (70-110)
--- NOTE | 2024-03-13 14:02 | PM.PN ---
Subjective Subjective: No acute interim events. Creatinine slightly improved at 1.9 today. Robust urine output continues.Negative 1.1L last 24 hrs . BP better controlled Medications: Reviewed: Yes Medication Review Details: Current Medications Acetaminophen (Acetaminophen 500 Mg Tablet) 500 mg PO Q4H PRN PRN Reason: fever Albuterol/Ipratropium (Ipratropium-Albuterol 3 Ml Neb) 3 ml INHALATION Q6H PRN PRN Reason: SHORTNESS OF BREATH Aspirin (Aspirin 81 Mg Ec Tablet) 81 mg PO DAILY [facility] Last Admin: 03/12/24 08:16 Dose: 81 mg Atorvastatin Calcium (Atorvastatin 40 Mg Tablet) 80 mg PO DAILY [facility] Last Admin: 03/12/24 08:17 Dose: 80 mg Clopidogrel Bisulfate (Clopidogrel 75 Mg Tablet) 75 mg PO DAILY [facility] Last Admin: 03/12/24 08:16 Dose: 75 mg Furosemide (Furosemide 10 Mg/Ml Sdv 2ml) 20 mg IVP Q12H KATT Last Admin: 03/12/24 02:21 Dose: 20 mg Glucagon (Glucagon 1 Mg/Ml Kit 1 Ml) 1 mg IM ONCE PRN; Protocol PRN Reason: Adult Acute Hypoglycemia Nursing Prot. Heparin Sodium (Porcine) (Heparin 5,000 Unit/Ml Inj 1 Ml) 0 unit IVP PRN PRN; Protocol PRN Reason: Heparin Weight Based Protocol -Subsequent Bolus Last Admin: 03/10/24 21:45 Dose: 4,200 unit Hydralazine HCl (Hydralazine 25 Mg Tablet) 25 mg PO TID [facility] Heparin Sodium/Sodium Chloride (Heparin Drip) 25,000 unit in 500 mls @ 0 mls/hr IV CONT KATT; Protocol Last Titration: 03/12/24 03:54 Dose: 13.41 unit/kg/hr, 27 mls/hr Dextrose (D5w) 500 mls @ 0 mls/hr IV ONCE PRN; Protocol PRN Reason: Adult Acute Hypoglycemia Prot Dextrose (D10w) 125 mls @ 750 mls/hr IV PRN PRN; Protocol PRN Reason: Adult Acute Hypoglycemia Nursing Protocol Dextrose (D10w) 250 mls @ 1,000 mls/hr IV PRN PRN; Protocol PRN Reason: Adult Acute Hypoglycemia Nursing Protocol Insulin Human Lispro (Insulin Lispro 100 Unit/1 Ml) 0 unit SUBCUT WM&BEDTIME KATT; Protocol Last Admin: 03/12/24 07:57 Dose: Not Given Metoprolol Tartrate (Metoprolol Tartrate 25 Mg Tablet) 25 mg PO Q12H [facility] Last Admin: 03/12/24 02:21 Dose: 25 mg Nifedipine (Nifedipine Er (24 Hr) 30 Mg Tablet) 60 mg PO DAILY [facility] Last Admin: 03/12/24 08:17 Dose: 60 mg Ondansetron HCl (Ondansetron 2 Mg/Ml Sdv 2 Ml) 4 mg IVP Q6H PRN PRN Reason: NAUSEA AND VOMITING Potassium Chloride (Potassium Chloride Er 20 Meq Tablet) 40 meq PO DAILY [facility] Last Admin: 03/12/24 08:17 Dose: 40 meq Senna/Docusate Sodium (Sennosides-Docusate Tablet) 2 tab PO BID [facility] Last Admin: 03/12/24 08:17 Dose: 2 tab Vitals/I&O/Wt Last Vital Signs Temp 97.8 F 03/13/24 11:16 Pulse 71 03/13/24 11:16 Resp 24 H 03/13/24 11:16 BP 146/78 03/13/24 11:16 Pulse Ox 95 03/13/24 11:16 O2 Del Method Nasal Cannula 03/13/24 11:16 O2 Flow Rate 2 03/13/24 11:16 03/12/24 03/13/24 03/13/24 22:59 06:59 14:59 Intake Total 913 / 2052.8 200 / 2252.8 240 / 240 Output Total 2050 / 2850 480 / 3330 Balance -1137 / -797.2 -280 / -1077.2 240 / 240 Weight last 48 hrs Weight 94.846 kg Weight 96.388 kg Physical Exam Narrative: General: No acute distress, AO x3 HEENT: PERRLA, pupils bilaterally equal and reactive, pallors not present Chest: Normal vesicular breath sounds, no added sounds, equal good air entry bilaterally CVS: S1-S2 regular, no murmurs, no tachycardia, no gallops, no rubs Abdomen: Soft, nontender, no organomegaly, bowel sounds present Neuro: No focal deficits, no facial deformity, AO x3, power 5/5 in all limbs Extremities: Improving lower extremity edema bilaterally Urinary Catheter Management: Mayorga Latex: Cath Placed During This Visit: yes Urinary Catheter Date of Insertion: 03/10/24 Urinary Catheter Time of Insertion: 01:30 Data 03/13/24 03:25 03/13/24 03:25 Micro: Microbiology 03/12/24 16:51 Occult Blood (FIT) - Final Stool A&P Assessment and plan (1) Congestive heart failure: Qualifiers: Heart failure chronicity: unspecified Heart failure type: unspecified Qualified Code(s): I50.9 - Heart failure, unspecified (2) Acute kidney injury: (3) NSTEMI (non-ST elevated myocardial infarction): (4) Hypoxia: (5) New onset of congestive heart failure: Plan New onset CHF Non-STEMI Start ACS protocol EKG not showing any ischemic or infarct changes Rule out sleep apnea who request pulse ox study overnight Check TSH and B12 Patient is diabetic with history of hypertension. Once patient becomes euvolemic she will need an angiogram and cardiology consultation Acute on chronic kidney disease Likely cardiorenal Start diuresis once we replenish potassium I do not have previous creatinine to compare her baseline creatinine I am anticipating improvement with diuresis Type 2 diabetes: Insulin dose has been readjusted because of hypoglycemia: Will keep her on sliding scale Hypertension: Avoid nephrotoxic agents, will use hydralazine, metoprolol for now Full code Consistent carb diet DVT prophylaxis: Covered with therapeutic heparin regimen 03/10/2024 Overnight labs and H&P reviewed. Patient is currently on 2 L/min supplemental O2. Bilateral lower extremity edema continues to persist. Troponin series reviewed, baseline at 198, at 2 hours 188, at 6 hours 207, no significant delta at 2 or 6 hours. Favor this to be troponin leak related to CHF. Awaiting echocardiogram to a certain systolic/diastolic dysfunction and regional wall motion abnormalities. Patient is currently not volume optimized. Additional dose of Lasix 40 mg IV now. Closely monitor renal function and urine output. Urine analysis to assess for proteinuria, casts. CT of the abdomen and pelvis showing small bilateral pleural effusions with atelectasis. Bilateral kidneys appearing normal without hydronephrosis. Net -1.5 L since last night. To continue IV diuresis. Once optimized to proceed with cardiac stress test. No current signs or symptoms of localizing infection. Discontinue piperacillin/tazobactam. 03/11/2024 Patient is off supplemental O2. Net -6.7 L. Continues to be on heparin drip. Patient appears to be better optimized with regards to heart failure. Pending UA to check for proteinuria. Cardiology consulted today to assist with management of CHF, neck steps regarding ischemic evaluation with possible stress test versus angiogram. Echocardiogram showing LVEF of 60%, no regional wall motion abnormalities, grade 2 diastolic dysfunction. 03/12/2024 Patient is currently on 1 L/min supplemental O2. She is net -2.2 L last 24 hours. Discontinue IV Lasix. Switch to 40 mg p.o. twice daily. Discontinue heparin, at this point she has been on 48 hours of anticoagulation. Awaiting results of cardiac stress test performed earlier this year at [facility] to be faxed over for further review. Echocardiogram as noted above. Blood pressure continues to be elevated in the 1 70-1 80 range. Metoprolol 25 mg p.o. twice daily was added yesterday. Increase dose to 37.5 mg p.o. twice daily, with plans to uptitrate further if heart rate allows. Increase nifedipine from 60 mg daily to 90 mg daily. Hydralazine 25 mg p.o. 3 times daily additionally added per cardiology. Monitor blood pressure trend with the above changes. Encourage ambulation out of bed mobility. Urine analysis with trace leukocyte esterase, 5-10 WBCs. Patient denied any complaints of dysuria at this time. 3+ urine protein. 24-hour urine protein ordered. 03/13/2024 Continues to be net -1.1 L with transition from IV to oral medications. Denies any current chest pain. Blood pressure is much better controlled today. 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 No further ischemic workup indicated at this time . Anticipate discharge in the upcoming 24 hours if patient continues to do well with oral diuresis. Increase metoprolol to 50 twice daily today. Given 3+ proteinuria on dipstick, hypoalbuminemia, concern for potential nephrotic syndrome. Will need referral to see cardiology and nephrology as outpatient. Pending 24-hour protein and triglyceride level Attestations Medical Necessity Statement*: Clinically improving.anticipate discharge in upcoming 24 hrs Coding Level of Care Code Acute Code for [facility] Fwd Diagnoses Congestive heart failure, unspecified HF chronicity, unspecified heart failure type I50.9 Heart failure chronicity: unspecified Heart failure type: unspecified Acute kidney injury N17.9 NSTEMI (non-ST elevated myocardial infarction) I21.4 Hypoxia R09.02 New onset of congestive heart failure I50.9
[2024-03-13 14:50] LABS: Triglycerides 221 mg/dL (0-150)
[2024-03-13 17:34] LABS: Glucose Point of Care 171 mg/dL (70-110)
[2024-03-13 18:23] LABS: Total Volume, Urine 3200 mL; Urine Total Protein 413.9 mg/dL (0-150); Urine Total Protein 24 Hour 13244.8 mg/24hr (0-150)
--- NOTE | 2024-03-13 19:14 | P.PN_ITS ---
Subjective 2 Subjective: Patient is feeling much better. The shortness of breath and the leg swelling are improving. No new symptoms. No arrhythmias on the monitor. Medications: Medication Review Details: Current Medications Acetaminophen (Acetaminophen 500 Mg Tablet) 500 mg PO Q4H PRN PRN Reason: fever Albuterol/Ipratropium (Ipratropium-Albuterol 3 Ml Neb) 3 ml INHALATION Q6H PRN PRN Reason: SHORTNESS OF BREATH Aspirin (Aspirin 81 Mg Ec Tablet) 81 mg PO DAILY [facility] Last Admin: 03/13/24 09:01 Dose: 81 mg Atorvastatin Calcium (Atorvastatin 40 Mg Tablet) 80 mg PO DAILY [facility] Last Admin: 03/13/24 08:59 Dose: 80 mg Clopidogrel Bisulfate (Clopidogrel 75 Mg Tablet) 75 mg PO DAILY [facility] Last Admin: 03/13/24 09:01 Dose: 75 mg Furosemide (Furosemide 40 Mg Tablet) 40 mg PO BID@08,16 [facility] Last Admin: 03/13/24 17:43 Dose: 40 mg Glucagon (Glucagon 1 Mg/Ml Kit 1 Ml) 1 mg IM ONCE PRN; Protocol PRN Reason: Adult Acute Hypoglycemia Nursing Prot. Hydralazine HCl (Hydralazine 25 Mg Tablet) 25 mg PO TID [facility] Last Admin: 03/13/24 14:52 Dose: 25 mg Dextrose (D5w) 500 mls @ 0 mls/hr IV ONCE PRN; Protocol PRN Reason: Adult Acute Hypoglycemia Prot Dextrose (D10w) 125 mls @ 750 mls/hr IV PRN PRN; Protocol PRN Reason: Adult Acute Hypoglycemia Nursing Protocol Dextrose (D10w) 250 mls @ 1,000 mls/hr IV PRN PRN; Protocol PRN Reason: Adult Acute Hypoglycemia Nursing Protocol Insulin Human Lispro (Insulin Lispro 100 Unit/1 Ml) 0 unit SUBCUT WM&BEDTIME [facility]; Protocol Last Admin: 03/13/24 17:43 Dose: 4 unit Metoprolol Tartrate (Metoprolol Tartrate 25 Mg Tablet) 50 mg PO BID@0900,2100 [facility] Nifedipine (Nifedipine Er (24 Hr) 30 Mg Tablet) 90 mg PO DAILY [facility] Last Admin: 03/13/24 08:59 Dose: 90 mg Ondansetron HCl (Ondansetron 2 Mg/Ml Sdv 2 Ml) 4 mg IVP Q6H PRN PRN Reason: NAUSEA AND VOMITING Potassium Chloride (Potassium Chloride Er 20 Meq Tablet) 40 meq PO DAILY [facility] Last Admin: 03/13/24 09:00 Dose: 40 meq Senna/Docusate Sodium (Sennosides-Docusate Tablet) 2 tab PO BID [facility] Last Admin: 03/13/24 17:43 Dose: Not Given Vitals/I&O/Wt Last Vital Signs Temp 98.2 F 03/13/24 16:00 Pulse 78 03/13/24 16:00 Resp 24 H 03/13/24 16:00 BP 128/72 03/13/24 16:00 Pulse Ox 93 03/13/24 16:00 O2 Del Method Room Air 03/13/24 16:00 O2 Flow Rate 2 03/13/24 11:16 03/13/24 03/13/24 03/13/24 06:59 14:59 22:59 Intake Total 200 / 2252.8 240 / 240 240 / 480 Output Total 480 / 3330 600 / 600 Balance -280 / -1077.2 -360 / -360 240 / -120 Weight last 48 hrs Weight 209 lb 1.6 oz Weight 212 lb 8 oz Physical Exam 2 Narrative: GENERAL: The patient is alert and oriented times three. Not in any acute distress. HEENT: No significant pallor, icterus or lymphadenopathy.Oral cavity: There are no mucous membrane lesions. NECK: Trachea appears to be central. No masses noted. No JVD or thyromegaly appreciated. RESPIRATORY: Chest is symmetrical. No intercostals muscle retraction or any accessory muscle activation. There is no chest wall tenderness. Breath sounds are heard bilaterally. No rales or rhonchi heard. No evidence of any consolidation. BREASTS: Deferred. HEART: The heart sounds are normal. No S3 or S4. No significant murmurs. No pericardial rub ABDOMEN: No vessel pulsations or distention. No tenderness. No organomegaly appreciated. Bowel sounds are normally heard. : Deferred. RECTAL: Deferred. LYMPHATIC: No lymphadenopathy noted in the neck. EXTREMITIES: 1+ edema with no cyanosis MUSCULOSKELETAL: No acute joint deformities or swelling SKIN: There are no significant rashes or ecchymosis NEUROPSYCHIATRIC: The patient is alert and oriented x3. Appears to be in a good mood. No tremors or rigidity noted. Urinary Catheter Management: Mayorga Latex: Cath Placed During This Visit: yes Urinary Catheter Date of Insertion: 03/10/24 Urinary Catheter Time of Insertion: 01:30 Data 03/13/24 03:25 03/13/24 03:25 Other Labs: Laboratory Last Values WBC 10.17 10^3/uL (3.29-11.43) 03/13/24 03:25 RBC 3.72 10^6/uL (3.85-5.65) L 03/13/24 03:25 Hgb 10.40 g/dL (11.27-16.99) L 03/13/24 03:25 Hct 32.5 % (36-47) L 03/13/24 03:25 MCV 87.4 fl (85-98) 03/13/24 03:25 MCH 28.0 pg (27-33) 03/13/24 03:25 MCHC 32.0 g/dL (30-55) 03/13/24 03:25 RDW 12.6 % (12.1-15.1) 03/13/24 03:25 Plt Count 348 10^3/cmm (157-399) 03/13/24 03:25 MPV 9.7 fL (7.4-10.4) 03/13/24 03:25 Neut % (Auto) 61.9 % 03/13/24 03:25 Lymph % (Auto) 18.3 % 03/13/24 03:25 [place] % (Auto) 8.3 % 03/13/24 03:25 Eos % (Auto) 10.5 % 03/13/24 03:25 Baso % (Auto) 0.6 % 03/13/24 03:25 Neut # (Auto) 6.30 10^3/uL (1.8-7.7) 03/13/24 03:25 Lymph # (Auto) 1.9 10^3/uL (0.8-4.8) 03/13/24 03:25 [place] # (Auto) 0.8 10^3/uL (0.2-0.9) 03/13/24 03:25 Eos # (Auto) 1.1 10^3/uL (0.0-0.8) H 03/13/24 03:25 Baso # (Auto) 0.1 10^3/uL (0.0-0.1) 03/13/24 03:25 Nucleated RBC % (auto) 0 % 03/13/24 03:25 Nucleated RBCs # 0.0 /100WBC 03/13/24 03:25 APTT 68.2 SECONDS (23.9-36.7) H 03/12/24 10:24 D-Dimer 0.89 ug/mLFEU (0-0.59) H 03/09/24 22:50 Specimen Type Arterial 03/09/24 20:01 Sample Site Radial, left 03/09/24 20:01 ABG pH 7.53 (7.35-7.45) H 03/09/24 20:01 ABG pCO2 34.9 mmHg (35-45) L 03/09/24 20:01 ABG pO2 149.0 mmHg (80.0-100.0) H 03/09/24 20:01 ABG HCO3 29.1 mmol/L (22-26) H 03/09/24 20:01 ABG Base Excess 6.1 mmol/L (-2.0-2.0) H 03/09/24 20:01 Josafat Test Pos 03/09/24 20:01 Hematocrit 31.6 % (37-47) L 03/09/24 20:01 Hgb O2 Saturation 97.8 % (95-100) 03/09/24 20:01 Carboxyhemoglobin 0.8 %THgb (0.4-20.1) 03/09/24 20:01 Methemoglobin 1.4 % (0.4-1.5) 03/09/24 20:01 Total Hemoglobin 10.3 g/dL (12-16) L 03/09/24 20:01 O2 Delivery Device Nc 03/09/24 20:01 O2 Liters/Min 4.0 % 03/09/24 20:01 Motorcoach Operator ID [id number] 03/09/24 20:01 Sodium 139 mmol/L (136-145) 03/13/24 03:25 Potassium 3.4 mmol/L (3.5-5.1) L 03/13/24 03:25 Chloride 104 mmol/L (98-107) 03/13/24 03:25 Carbon Dioxide 28 mmol/L (22-29) 03/13/24 03:25 Anion Gap 10.4 (5-19) 03/13/24 03:25 BUN 18 mg/dL (6-20) 03/13/24 03:25 Creatinine 1.9 mg/dL (0.5-0.9) H 03/13/24 03:25 GFR Calculation 28.1 mL/min (90-130) L 03/13/24 03:25 Glucose 164 mg/dL (65-115) H 03/13/24 03:25 POC Glucose 171 mg/dL (70-110) H 03/13/24 17:31 Estimat Average Glucose 126 03/11/24 04:58 Hemoglobin A1c 6.0 % (4.0-6.0) 03/11/24 04:58 Calculated Osmolality 294 mOsm/kg (285-295) 03/13/24 03:25 Lactic Acid 0.9 mmol/L (0.5-2.2) 03/09/24 22:50 Calcium 8.2 mg/dL (8.5-10.5) L 03/13/24 03:25 Phosphorus 4.2 mg/dL (2.5-4.5) 03/10/24 04:48 Magnesium 2.0 mg/dL (1.7-2.3) 03/13/24 03:25 Total Bilirubin 0.2 mg/dL (0.15-1.2) 03/13/24 03:25 AST 25 U/L (0-32) 03/13/24 03:25 ALT 14 U/L (0-33) 03/13/24 03:25 Alkaline Phosphatase 46 U/L (35-105) 03/13/24 03:25 Troponin T Baseline 198 ng/L (0-10) H* 03/09/24 22:50 Troponin T 120 Minute 188.0 ng/L (0-10) H 03/10/24 00:52 Delta Troponin T -10.0 ABS# (0-10) L 03/10/24 00:52 Troponin T Hi Sens 6Hr 207.4 ng/L (0-10) H 03/10/24 04:48 Troponin T Hi Sens 6Hr Delta 9.4 ng/L (0-12) 03/10/24 04:48 NT-Pro-B Natriuret Pep 3819 pg/mL (0-125) H 03/09/24 22:50 Total Protein 4.3 g/dL (6.6-8.7) L 03/13/24 03:25 Albumin 1.9 g/dL (3.5-5.2) L 03/13/24 03:25 Globulin 2.4 g/dL (1.3-4.6) 03/13/24 03:25 Triglycerides 221 mg/dL (0-150) H 03/13/24 03:25 Lipase 21 U/L (13-60) 03/09/24 22:50 Vitamin B12 371 pg/mL (232-1245) 03/10/24 04:48 TSH 3.56 uIU/mL (0.27-4.20) 03/10/24 04:48 Urine Color Yellow (Yellow) 03/11/24 23:24 Urine Appearance Clear (CLEAR) 03/11/24 23:24 Urine pH 7.5 (5-7) 03/11/24 23:24 Ur Specific [place] 1.014 (1.005-1.030) 03/11/24 23:24 Urine Protein 3+ (Negative) A 03/11/24 23:24 Urine Glucose (UA) 2+ (Normal) H 03/11/24 23:24 Urine Ketones Trace (Negative) 03/11/24 23:24 Urine Blood 2+ (Negative) A 03/11/24 23:24 Urine Nitrate Negative (Negative) 03/11/24 23:24 Urine Bilirubin Negative (Negative) 03/11/24 23:24 Urine Urobilinogen 0.2 mg/dL (Negative) 03/11/24 23:24 Ur Leukocyte Esterase Trace (Negative) A 03/11/24 23:24 Urine RBC 0-4 /hpf (0-2) H 03/11/24 23:24 Urine WBC 5-10 /hpf (0-5) H 03/11/24 23:24 Ur Squamous Epith Cells 0-4 /hpf (0-5) H 03/11/24 23:24 Amorphous Sediment Not Reportable 03/11/24 23:24 Urine Bacteria Trace /hpf (NONE) 03/11/24 23:24 Urine Mucus 1+ /hpf 03/11/24 23:24 Urine Total Volume 3200 mL 03/13/24 16:30 Ur Total Protein 24 Hr 64774.8 mg/24hr (0-150) H 03/13/24 16:30 Urine Total Protein 413.9 mg/dL (0-150) H 03/13/24 16:30 Coronavirus (PCR) Negative (Negative) 03/09/24 22:25 Influenza A (PCR) Negative (Negative) 03/09/24 22:25 Influenza Type B (PCR) Negative (Negative) 03/09/24 22:25 RSV (PCR) Negative (Negative) 03/09/24 22:25 Micro: Microbiology 03/12/24 16:51 Occult Blood (FIT) - Final Stool A&P Assessment and plan (1) Congestive heart failure: Patient seems to have features of acute on chronic systolic heart failure. Currently the heart failure is he is getting compensated. Most likely she has nonischemic cardiomyopathy. Unremarkable Myocardial perfusion imaging based on the stress test done at the [facility]. Continue to optimize afterload reducing agents. May consider Entresto once the renal function is stabilized Qualifiers: Heart failure chronicity: unspecified Heart failure type: unspecified Qualified Code(s): I50.9 - Heart failure, unspecified (2) Elevated troponin: Most likely from type II [place]. No acute ischemic EKG changes. We received the medical records from [place]. Patient was found to have no evidence of ischemia based on the perfusion scan. (3) Acute kidney injury: This could be multifactorial. Her history of uncontrolled diabetes could be a contributing factor. Heart failure causing acute kidney injury also could be a contributing factor. The creatinine level seems to be coming down at this point. (4) Benign hypertension: The blood pressure seems to be getting under control. Will continue to optimize medications. (5) T2DM (type 2 diabetes mellitus): Aggressive management of the diabetes would be appropriate. 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 Bipolar disorder Continue on the current dose of the medications. Consider Entresto as an outpatient, if the kidney function is stable and the nephrology service is agreeable Discussed with the patient regarding cardiac catheterization. Shared decision was made not to undergo the angiogram. Attestations 2 Medical Necessity Statement*: Deferred to the primary Coding Level of Care Code 17163 Diagnoses Congestive heart failure, unspecified HF chronicity, unspecified heart failure type I50.9 Heart failure chronicity: unspecified Heart failure type: unspecified Elevated troponin R79.89 Acute kidney injury N17.9 Benign hypertension I10 Type 2 diabetes mellitus without complication, with long-term current use of insulin E11.9; Z79.4 Diabetes mellitus retirement insulin use: with retirement use Diabetes mellitus complication status: without complication
[2024-03-13 21:04] LABS: Glucose Point of Care 127 mg/dL (70-110)
[2024-03-13] MEDS: metoprolol tartrate 25 mg Tablet 50 MG PO (21:17)
[2024-03-14] VITALS (8 sets, daily range): BP systolic 141–175; BP diastolic 77–89; PULSE 70–77; RESP 15–22; TEMP 36.6–36.9; O2SAT 92–98
[2024-03-14 06:22] LABS: Glucose Point of Care 158 mg/dL (70-110)
[2024-03-14] MEDS: insulin lispro 100 unit/1 mL SUBCUT ×2 (08:39→12:35)
[2024-03-14] MEDS: atorvastatin 40 mg Tablet 80 MG PO (08:40)
[2024-03-14] MEDS: metoprolol tartrate 25 mg Tablet 50 MG PO (08:41)
[2024-03-14] MEDS: clopidogrel 75 mg Tablet PO (08:42)
[2024-03-14] MEDS: hyDRALAzine 25 mg Tablet PO (08:42)
[2024-03-14] MEDS: FUROsemide 40 mg Tablet PO (08:43)
[2024-03-14] MEDS: NIFEdipine ER (24 hr) 30 mg Tablet 90 MG PO (08:45)
[2024-03-14] MEDS: potassium chloride ER 20 mEq Tablet 40 MEQ PO (08:45)
[2024-03-14] MEDS: aspirin 81 mg EC Tablet PO (08:45)
--- NOTE | 2024-03-14 10:00 | P.DS_ITS ---
Discharge Providers Date of Admission: 03/10/24 00:30 Date of Discharge: March 14, 2024 Attending Provider at Admission: Edyta Acosta MD Attending Provider at Discharge: Luciana Caldwell MD Primary Care Provider: SHELLEY Mackay Diagnoses at Discharge Discharge Diagnosis (1) Congestive heart failure: Status: Acute Qualifiers: Heart failure chronicity: unspecified Heart failure type: unspecified Qualified Code(s): I50.9 - Heart failure, unspecified (2) Elevated troponin: Status: Acute (3) Acute kidney injury: Status: Acute (4) Benign hypertension: Status: Acute (5) T2DM (type 2 diabetes mellitus): Status: Acute 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 She does have chronic kidney disease and current creat at 2.2. She had been experiencing symptoms since June of this year when she underwent a stress test at [facility] which was without ischemic changes. Here her troponins were elevated in the 100s range without significant delta at 2 or 6 hrs. She received iv diuresis with Lasix and was net negative 11L by the time of discharge. Her orthopnea and dyspnea improved. Cardiology service was consulted. No further ischemic w/up inidcated for now given negative stress test. Lisinopril was held at discharge due to CLINT cr 2.2 without known previous baseline. UA showed 3+ proteinuria, 24 hr urine pr at 13 g. She has been referred to folow up with cardiology as outpatient. Addtional referral provided to Dr. Viv Hamilton from nephrology at the [facility] in [place]. Her blood pressure was uncontrolled during admission- nifedidpine increased to 90mg daily, new medication added by way of metoprolol 50mg po BID and hydralazine 25mg TID. Recommend f/up with PCP, cardiology and nephrology in one week from discharge. Home 02 eval was completed at discharge - pt did not require supplemental 02. Physical Exam Narrative: General: No acute distress, AO x3 HEENT: PERRLA, pupils bilaterally equal and reactive, pallors not present Chest: Normal vesicular breath sounds, no added sounds, equal good air entry bilaterally CVS: S1-S2 regular, no murmurs, no tachycardia, no gallops, no rubs Abdomen: Soft, nontender, no organomegaly, bowel sounds present Neuro: No focal deficits, no facial deformity, AO x3, power 5/5 in all limbs Urinary Catheter Management: Mayorga Latex: Cath Placed During This Visit: yes Urinary Catheter Date of Insertion: 03/10/24 Urinary Catheter Time of Insertion: 01:30 Discharge Data Studies Completed and Pending Completed Studies During Hospitalization Category Date Time Status CT abdomen pelvis w con* [id number] Stat Cat Scan 03/09/24 21:30 Completed CV. echo complete* [id number] Routine Ultrasound 03/10/24 01:17 Completed Radiology Impressions Abdomen/Pelvis CT 03/09/24 21:30 IMPRESSION: 1. Small bilateral pleural effusions with adjacent relaxation atelectasis and diffuse anasarca may represent fluid overload. 2. Trace free pelvic fluid may be physiologic. 3. Moderate colonic stool can be seen with constipation. 4. Fecalization of intraluminal contents within mid to distal small bowel loops may represent enteritis and/or hypomotility. Laboratory Results WBC 10.17 10^3/uL (3.29-11.43) 03/13/24 03:25 RBC 3.72 10^6/uL (3.85-5.65) L 03/13/24 03:25 Hgb 10.40 g/dL (11.27-16.99) L 03/13/24 03:25 Hct 32.5 % (36-47) L 03/13/24 03:25 MCV 87.4 fl (85-98) 03/13/24 03:25 MCH 28.0 pg (27-33) 03/13/24 03:25 MCHC 32.0 g/dL (30-55) 03/13/24 03:25 RDW 12.6 % (12.1-15.1) 03/13/24 03:25 Plt Count 348 10^3/cmm (157-399) 03/13/24 03:25 MPV 9.7 fL (7.4-10.4) 03/13/24 03:25 Neut % (Auto) 61.9 % 03/13/24 03:25 Lymph % (Auto) 18.3 % 03/13/24 03:25 [place] % (Auto) 8.3 % 03/13/24 03:25 Eos % (Auto) 10.5 % 03/13/24 03:25 Baso % (Auto) 0.6 % 03/13/24 03:25 Neut # (Auto) 6.30 10^3/uL (1.8-7.7) 03/13/24 03:25 Lymph # (Auto) 1.9 10^3/uL (0.8-4.8) 03/13/24 03:25 [place] # (Auto) 0.8 10^3/uL (0.2-0.9) 03/13/24 03:25 Eos # (Auto) 1.1 10^3/uL (0.0-0.8) H 03/13/24 03:25 Baso # (Auto) 0.1 10^3/uL (0.0-0.1) 03/13/24 03:25 Nucleated RBC % (auto) 0 % 03/13/24 03:25 Nucleated RBCs # 0.0 /100WBC 03/13/24 03:25 APTT 68.2 SECONDS (23.9-36.7) H 03/12/24 10:24 D-Dimer 0.89 ug/mLFEU (0-0.59) H 03/09/24 22:50 Specimen Type Arterial 03/09/24 20:01 Sample Site Radial, left 03/09/24 20:01 ABG pH 7.53 (7.35-7.45) H 03/09/24 20:01 ABG pCO2 34.9 mmHg (35-45) L 03/09/24 20:01 ABG pO2 149.0 mmHg (80.0-100.0) H 03/09/24 20:01 ABG HCO3 29.1 mmol/L (22-26) H 03/09/24 20:01 ABG Base Excess 6.1 mmol/L (-2.0-2.0) H 03/09/24 20:01 Josafat Test Pos 03/09/24 20:01 Hematocrit 31.6 % (37-47) L 03/09/24 20:01 Hgb O2 Saturation 97.8 % (95-100) 03/09/24 20:01 Carboxyhemoglobin 0.8 %THgb (0.4-20.1) 03/09/24 20:01 Methemoglobin 1.4 % (0.4-1.5) 03/09/24 20:01 Total Hemoglobin 10.3 g/dL (12-16) L 03/09/24 20:01 O2 Delivery Device Nc 03/09/24 20:01 O2 Liters/Min 4.0 % 03/09/24 20:01 Mapping Editor ID [email or web address] 03/09/24 20:01 Sodium 139 mmol/L (136-145) 03/13/24 03:25 Potassium 3.4 mmol/L (3.5-5.1) L 03/13/24 03:25 Chloride 104 mmol/L (98-107) 03/13/24 03:25 Carbon Dioxide 28 mmol/L (22-29) 03/13/24 03:25 Anion Gap 10.4 (5-19) 03/13/24 03:25 BUN 18 mg/dL (6-20) 03/13/24 03:25 Creatinine 1.9 mg/dL (0.5-0.9) H 03/13/24 03:25 GFR Calculation 28.1 mL/min (90-130) L 03/13/24 03:25 Glucose 164 mg/dL (65-115) H 03/13/24 03:25 POC Glucose 156 mg/dL (70-110) H 03/14/24 12:21 Estimat Average Glucose 126 03/11/24 04:58 Hemoglobin A1c 6.0 % (4.0-6.0) 03/11/24 04:58 Calculated Osmolality 294 mOsm/kg (285-295) 03/13/24 03:25 Lactic Acid 0.9 mmol/L (0.5-2.2) 03/09/24 22:50 Calcium 8.2 mg/dL (8.5-10.5) L 03/13/24 03:25 Phosphorus 4.2 mg/dL (2.5-4.5) 03/10/24 04:48 Magnesium 2.0 mg/dL (1.7-2.3) 03/13/24 03:25 Total Bilirubin 0.2 mg/dL (0.15-1.2) 03/13/24 03:25 AST 25 U/L (0-32) 03/13/24 03:25 ALT 14 U/L (0-33) 03/13/24 03:25 Alkaline Phosphatase 46 U/L (35-105) 03/13/24 03:25 Troponin T Baseline 198 ng/L (0-10) H* 03/09/24 22:50 Troponin T 120 Minute 188.0 ng/L (0-10) H 03/10/24 00:52 Delta Troponin T -10.0 ABS# (0-10) L 03/10/24 00:52 Troponin T Hi Sens 6Hr 207.4 ng/L (0-10) H 03/10/24 04:48 Troponin T Hi Sens 6Hr Delta 9.4 ng/L (0-12) 03/10/24 04:48 NT-Pro-B Natriuret Pep 3819 pg/mL (0-125) H 03/09/24 22:50 Total Protein 4.3 g/dL (6.6-8.7) L 03/13/24 03:25 Albumin 1.9 g/dL (3.5-5.2) L 03/13/24 03:25 Globulin 2.4 g/dL (1.3-4.6) 03/13/24 03:25 Triglycerides 221 mg/dL (0-150) H 03/13/24 03:25 Lipase 21 U/L (13-60) 03/09/24 22:50 Vitamin B12 371 pg/mL (232-1245) 03/10/24 04:48 TSH 3.56 uIU/mL (0.27-4.20) 03/10/24 04:48 Urine Color Yellow (Yellow) 03/11/24 23:24 Urine Appearance Clear (CLEAR) 03/11/24 23:24 Urine pH 7.5 (5-7) 03/11/24 23:24 Ur Specific Tok 1.014 (1.005-1.030) 03/11/24 23:24 Urine Protein 3+ (Negative) A 03/11/24 23:24 Urine Glucose (UA) 2+ (Normal) H 03/11/24 23:24 Urine Ketones Trace (Negative) 03/11/24 23:24 Urine Blood 2+ (Negative) A 03/11/24 23:24 Urine Nitrate Negative (Negative) 03/11/24 23:24 Urine Bilirubin Negative (Negative) 03/11/24 23:24 Urine Urobilinogen 0.2 mg/dL (Negative) 03/11/24 23:24 Ur Leukocyte Esterase Trace (Negative) A 03/11/24 23:24 Urine RBC 0-4 /hpf (0-2) H 03/11/24 23:24 Urine WBC 5-10 /hpf (0-5) H 03/11/24 23:24 Ur Squamous Epith Cells 0-4 /hpf (0-5) H 03/11/24 23:24 Amorphous Sediment Not Reportable 03/11/24 23:24 Urine Bacteria Trace /hpf (NONE) 03/11/24 23:24 Urine Mucus 1+ /hpf 03/11/24 23:24 Urine Total Volume 3200 mL 03/13/24 16:30 Ur Total Protein 24 Hr 54551.8 mg/24hr (0-150) H 03/13/24 16:30 Urine Total Protein 413.9 mg/dL (0-150) H 03/13/24 16:30 Coronavirus (PCR) Negative (Negative) 03/09/24 22:25 Influenza A (PCR) Negative (Negative) 03/09/24 22:25 Influenza Type B (PCR) Negative (Negative) 03/09/24 22:25 RSV (PCR) Negative (Negative) 03/09/24 22:25 Vitals Last Vital Signs Temp 97.9 F 03/14/24 12:00 Pulse 75 03/14/24 12:43 Resp 16 03/14/24 12:43 BP 175/89 03/14/24 12:43 Pulse Ox 93 03/14/24 12:43 O2 Del Method Room Air 03/14/24 12:00 O2 Flow Rate 2 03/13/24 11:16 Discharge Plan Discharge Patient Disposition: Home Condition: Stable Prescriptions: New nifedipine 30 mg Tablet Extended Release 24hr 90 mg PO DAILY 30 Days Qty: 30 0RF furosemide 40 mg Tablet 40 mg PO BID@08,16 30 Days Qty: 30 0RF hydralazine 25 mg Tablet 25 mg PO TID 30 Days Qty: 90 0RF metoprolol tartrate 25 mg Tablet 50 mg PO BID@0900,2100 30 Days Qty: 60 0RF Continued potassium chloride 10 mEq Capsule, Extended Release 10 meq PO DAILY insulin lispro 100 unit/mL solution See Rx Instructions .ROUTE .COMPLEX Rx Instructions: 7 units below 200 BG, above 200 12 units pioglitazone 30 mg Tablet 30 mg PO DAILY rosuvastatin 40 mg Tablet 40 mg PO DAILY fenofibrate 150 mg Capsule 150 mg PO DAILY aspirin 81 mg Capsule 81 mg PO DAILY Discontinued ibuprofen 800 mg Tablet 800 mg PO BID PRN (Reason: Pain) lisinopril 20 mg Tablet 20 mg PO DAILY nifedipine 60 mg Tablet Extended Release 60 mg PO DAILY insulin glargine [Lantus Solostar U-100 Insulin] 100 unit/mL (3 mL) insulin pen See Rx Instructions .ROUTE .COMPLEX Rx Instructions: Morning dose is 12 units and Bedtime dose is 26 units Discharge Orders: Discharge Order (Routine); Ordered 03/14/24 Ordered By: Luciana Caldwell Referrals: Melissa Roman DO [Referring] - 03/21/24 1:00 pm (Patient will be laura Eden) Joelle Melendrez FNP [Nurse Practitioner] - 04/04/24 1:30 pm Viv Hamilton MD [Referring] - (please call office at [phone] to [facility] nephrology appt.) Discharge Diet: Usual diet Discharge Activity: Resume usual activity Patient Instructions: Metoprolol (By mouth), Nifedipine (By mouth), Furosemide (By mouth), Hydralazine (By mouth), Hypertension, Heart Attack (DC), Heart Failure (DC), Acute Kidney Injury (DC), Chronic Hypertension (DC), CHF Stoplight, Opioid Safety, Post Heart Attack Stoplight Discharge Attestations Time Spent in Discharge Care*: greater than 30 min Quality Metrics Clinical Quality Measures [ No reported AMI, CVA or VTE this stay] Coding Level of Care Code Acute Code for g Fwd Diagnoses Congestive heart failure, unspecified HF chronicity, unspecified heart failure type I50.9 Heart failure chronicity: unspecified Heart failure type: unspecified Elevated troponin R79.89 Acute kidney injury N17.9 Benign hypertension I10 Type 2 diabetes mellitus without complication, with long-term current use of insulin E11.9; Z79.4 Diabetes mellitus [facility] 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
[2024-03-14 12:37] LABS: Glucose Point of Care 156 mg/dL (70-110)
--- NOTE | 2024-03-14 13:00 | P.PN_ITS ---
Subjective 2 Subjective: The patient is feeling much better. No chest pain or shortness of breath. Leg edema has significantly improved. Medications: Medication Review Details: Current Medications Acetaminophen (Acetaminophen 500 Mg Tablet) 500 mg PO Q4H PRN PRN Reason: fever Albuterol/Ipratropium (Ipratropium-Albuterol 3 Ml Neb) 3 ml INHALATION Q6H PRN PRN Reason: SHORTNESS OF BREATH Aspirin (Aspirin 81 Mg Ec Tablet) 81 mg PO DAILY COUNTS INCLUDE 234 BEDS AT THE [facility] Last Admin: 03/14/24 08:45 Dose: 81 mg Atorvastatin Calcium (Atorvastatin 40 Mg Tablet) 80 mg PO DAILY COUNTS INCLUDE 234 BEDS AT THE [facility] Last Admin: 03/14/24 08:40 Dose: 80 mg Clopidogrel Bisulfate (Clopidogrel 75 Mg Tablet) 75 mg PO DAILY COUNTS INCLUDE 234 BEDS AT THE [facility] Last Admin: 03/14/24 08:42 Dose: 75 mg Furosemide (Furosemide 40 Mg Tablet) 40 mg PO BID@08,16 COUNTS INCLUDE 234 BEDS AT THE [facility] Last Admin: 03/14/24 08:43 Dose: 40 mg Glucagon (Glucagon 1 Mg/Ml Kit 1 Ml) 1 mg IM ONCE PRN; Protocol PRN Reason: Adult Acute Hypoglycemia Nursing Prot. Hydralazine HCl (Hydralazine 25 Mg Tablet) 25 mg PO TID COUNTS INCLUDE 234 BEDS AT THE [facility] Last Admin: 03/14/24 08:42 Dose: 25 mg Dextrose (D5w) 500 mls @ 0 mls/hr IV ONCE PRN; Protocol PRN Reason: Adult Acute Hypoglycemia Prot Dextrose (D10w) 125 mls @ 750 mls/hr IV PRN PRN; Protocol PRN Reason: Adult Acute Hypoglycemia Nursing Protocol Dextrose (D10w) 250 mls @ 1,000 mls/hr IV PRN PRN; Protocol PRN Reason: Adult Acute Hypoglycemia Nursing Protocol Insulin Human Lispro (Insulin Lispro 100 Unit/1 Ml) 0 unit SUBCUT WM&BEDTIME COUNTS INCLUDE 234 BEDS AT THE [facility]; Protocol Last Admin: 03/14/24 12:35 Dose: 4 unit Metoprolol Tartrate (Metoprolol Tartrate 25 Mg Tablet) 50 mg PO BID@0900,2100 COUNTS INCLUDE 234 BEDS AT THE [facility] Last Admin: 03/14/24 08:41 Dose: 50 mg Nifedipine (Nifedipine Er (24 Hr) 30 Mg Tablet) 90 mg PO DAILY COUNTS INCLUDE 234 BEDS AT THE [facility] Last Admin: 03/14/24 08:45 Dose: 90 mg Ondansetron HCl (Ondansetron 2 Mg/Ml Sdv 2 Ml) 4 mg IVP Q6H PRN PRN Reason: NAUSEA AND VOMITING Potassium Chloride (Potassium Chloride Er 20 Meq Tablet) 40 meq PO DAILY COUNTS INCLUDE 234 BEDS AT THE [facility] Last Admin: 03/14/24 08:45 Dose: 40 meq Senna/Docusate Sodium (Sennosides-Docusate Tablet) 2 tab PO BID COUNTS INCLUDE 234 BEDS AT THE [facility] Last Admin: 03/14/24 08:45 Dose: Not Given Vitals/I&O/Wt Last Vital Signs Temp 97.9 F 03/14/24 12:00 Pulse 75 03/14/24 12:43 Resp 16 03/14/24 12:43 BP 175/89 03/14/24 12:43 Pulse Ox 93 03/14/24 12:43 O2 Del Method Room Air 03/14/24 12:00 O2 Flow Rate 2 03/13/24 11:16 03/13/24 03/14/24 03/14/24 22:59 06:59 14:59 Intake Total 540 / 780 480 / 480 Output Total 600 / 1200 Balance -60 / -420 480 / 480 Weight last 48 hrs Weight 209 lb 1.6 oz Weight 209 lb 1.6 oz Physical Exam 2 Narrative: GENERAL: The patient is alert and oriented times three. Not in any acute distress. HEENT: No significant pallor, icterus or lymphadenopathy.Oral cavity: There are no mucous membrane lesions. NECK: Trachea appears to be central. No masses noted. No JVD or thyromegaly appreciated. RESPIRATORY: Chest is symmetrical. No intercostals muscle retraction or any accessory muscle activation. There is no chest wall tenderness. Breath sounds are heard bilaterally. No rales or rhonchi heard. No evidence of any consolidation. BREASTS: Deferred. HEART: The heart sounds are normal. No S3 or S4. No significant murmurs. No pericardial rub ABDOMEN: No vessel pulsations or distention. No tenderness. No organomegaly appreciated. Bowel sounds are normally heard. : Deferred. RECTAL: Deferred. LYMPHATIC: No lymphadenopathy noted in the neck. EXTREMITIES: 1+ edema with no cyanosis MUSCULOSKELETAL: No acute joint deformities or swelling SKIN: There are no significant rashes or ecchymosis NEUROPSYCHIATRIC: The patient is alert and oriented x3. Appears to be in a good mood. No tremors or rigidity noted. Urinary Catheter Management: Mayorga Latex: Cath Placed During This Visit: yes Urinary Catheter Date of Insertion: 12/08/24 Urinary Catheter Time of Insertion: 01:30 Data 03/13/24 03:25 03/13/24 03:25 Other Labs: Laboratory Last Values WBC 10.17 10^3/uL (3.29-11.43) 03/13/24 03:25 RBC 3.72 10^6/uL (3.85-5.65) L 03/13/24 03:25 Hgb 10.40 g/dL (11.27-16.99) L 03/13/24 03:25 Hct 32.5 % (36-47) L 03/13/24 03:25 MCV 87.4 fl (85-98) 03/13/24 03:25 MCH 28.0 pg (27-33) 03/13/24 03:25 MCHC 32.0 g/dL (30-55) 03/13/24 03:25 RDW 12.6 % (12.1-15.1) 03/13/24 03:25 Plt Count 348 10^3/cmm (157-399) 03/13/24 03:25 MPV 9.7 fL (7.4-10.4) 03/13/24 03:25 Neut % (Auto) 61.9 % 03/13/24 03:25 Lymph % (Auto) 18.3 % 03/13/24 03:25 [place] % (Auto) 8.3 % 03/13/24 03:25 Eos % (Auto) 10.5 % 03/13/24 03:25 Baso % (Auto) 0.6 % 03/13/24 03:25 Neut # (Auto) 6.30 10^3/uL (1.8-7.7) 03/13/24 03:25 Lymph # (Auto) 1.9 10^3/uL (0.8-4.8) 03/13/24 03:25 [place] # (Auto) 0.8 10^3/uL (0.2-0.9) 03/13/24 03:25 Eos # (Auto) 1.1 10^3/uL (0.0-0.8) H 03/13/24 03:25 Baso # (Auto) 0.1 10^3/uL (0.0-0.1) 03/13/24 03:25 Nucleated RBC % (auto) 0 % 03/13/24 03:25 Nucleated RBCs # 0.0 /100WBC 03/13/24 03:25 APTT 68.2 SECONDS (23.9-36.7) H 03/12/24 10:24 D-Dimer 0.89 ug/mLFEU (0-0.59) H 03/09/24 22:50 Specimen Type Arterial 03/09/24 20:01 Sample Site Radial, left 03/09/24 20:01 ABG pH 7.53 (7.35-7.45) H 03/09/24 20:01 ABG pCO2 34.9 mmHg (35-45) L 03/09/24 20:01 ABG pO2 149.0 mmHg (80.0-100.0) H 03/09/24 20:01 ABG HCO3 29.1 mmol/L (22-26) H 03/09/24 20:01 ABG Base Excess 6.1 mmol/L (-2.0-2.0) H 03/09/24 20:01 Josafat Test Pos 03/09/24 20:01 Hematocrit 31.6 % (37-47) L 03/09/24 20:01 Hgb O2 Saturation 97.8 % (95-100) 03/09/24 20:01 Carboxyhemoglobin 0.8 %THgb (0.4-20.1) 03/09/24 20:01 Methemoglobin 1.4 % (0.4-1.5) 03/09/24 20:01 Total Hemoglobin 10.3 g/dL (12-16) L 03/09/24 20:01 O2 Delivery Device Nc 03/09/24 20:01 O2 Liters/Min 4.0 % 03/09/24 20:01 Community Coordinator ID [email or web address] 03/09/24 20:01 Sodium 139 mmol/L (136-145) 03/13/24 03:25 Potassium 3.4 mmol/L (3.5-5.1) L 03/13/24 03:25 Chloride 104 mmol/L (98-107) 03/13/24 03:25 Carbon Dioxide 28 mmol/L (22-29) 03/13/24 03:25 Anion Gap 10.4 (5-19) 03/13/24 03:25 BUN 18 mg/dL (6-20) 03/13/24 03:25 Creatinine 1.9 mg/dL (0.5-0.9) H 03/13/24 03:25 GFR Calculation 28.1 mL/min (90-130) L 03/13/24 03:25 Glucose 164 mg/dL (65-115) H 03/13/24 03:25 POC Glucose 156 mg/dL (70-110) H 03/14/24 12:21 Estimat Average Glucose 126 03/11/24 04:58 Hemoglobin A1c 6.0 % (4.0-6.0) 03/11/24 04:58 Calculated Osmolality 294 mOsm/kg (285-295) 03/13/24 03:25 Lactic Acid 0.9 mmol/L (0.5-2.2) 03/09/24 22:50 Calcium 8.2 mg/dL (8.5-10.5) L 03/13/24 03:25 Phosphorus 4.2 mg/dL (2.5-4.5) 03/10/24 04:48 Magnesium 2.0 mg/dL (1.7-2.3) 03/13/24 03:25 Total Bilirubin 0.2 mg/dL (0.15-1.2) 03/13/24 03:25 AST 25 U/L (0-32) 03/13/24 03:25 ALT 14 U/L (0-33) 03/13/24 03:25 Alkaline Phosphatase 46 U/L (35-105) 03/13/24 03:25 Troponin T Baseline 198 ng/L (0-10) H* 03/09/24 22:50 Troponin T 120 Minute 188.0 ng/L (0-10) H 03/10/24 00:52 Delta Troponin T -10.0 ABS# (0-10) L 03/10/24 00:52 Troponin T Hi Sens 6Hr 207.4 ng/L (0-10) H 03/10/24 04:48 Troponin T Hi Sens 6Hr Delta 9.4 ng/L (0-12) 03/10/24 04:48 NT-Pro-B Natriuret Pep 3819 pg/mL (0-125) H 03/09/24 22:50 Total Protein 4.3 g/dL (6.6-8.7) L 03/13/24 03:25 Albumin 1.9 g/dL (3.5-5.2) L 03/13/24 03:25 Globulin 2.4 g/dL (1.3-4.6) 03/13/24 03:25 Triglycerides 221 mg/dL (0-150) H 03/13/24 03:25 Lipase 21 U/L (13-60) 03/09/24 22:50 Vitamin B12 371 pg/mL (232-1245) 03/10/24 04:48 TSH 3.56 uIU/mL (0.27-4.20) 03/10/24 04:48 Urine Color Yellow (Yellow) 03/11/24 23:24 Urine Appearance Clear (CLEAR) 03/11/24 23:24 Urine pH 7.5 (5-7) 03/11/24 23:24 Ur Specific [place] 1.014 (1.005-1.030) 03/11/24 23:24 Urine Protein 3+ (Negative) A 03/11/24 23:24 Urine Glucose (UA) 2+ (Normal) H 03/11/24 23:24 Urine Ketones Trace (Negative) 03/11/24 23:24 Urine Blood 2+ (Negative) A 03/11/24 23:24 Urine Nitrate Negative (Negative) 03/11/24 23:24 Urine Bilirubin Negative (Negative) 03/11/24 23:24 Urine Urobilinogen 0.2 mg/dL (Negative) 03/11/24 23:24 Ur Leukocyte Esterase Trace (Negative) A 03/11/24 23:24 Urine RBC 0-4 /hpf (0-2) H 03/11/24 23:24 Urine WBC 5-10 /hpf (0-5) H 03/11/24 23:24 Ur Squamous Epith Cells 0-4 /hpf (0-5) H 03/11/24 23:24 Amorphous Sediment Not Reportable 03/11/24 23:24 Urine Bacteria Trace /hpf (NONE) 03/11/24 23:24 Urine Mucus 1+ /hpf 03/11/24 23:24 Urine Total Volume 3200 mL 03/13/24 16:30 Ur Total Protein 24 Hr 89973.8 mg/24hr (0-150) H 03/13/24 16:30 Urine Total Protein 413.9 mg/dL (0-150) H 12/11/24 16:30 Coronavirus (PCR) Negative (Negative) 03/09/24 22:25 Influenza A (PCR) Negative (Negative) 03/09/24 22:25 Influenza Type B (PCR) Negative (Negative) 03/09/24 22:25 RSV (PCR) Negative (Negative) 03/09/24 22:25 A&P Assessment and plan (1) Congestive heart failure: Patient seems to have features of acute on chronic systolic heart failure. Currently the heart failure is he is getting compensated. Most likely she has nonischemic cardiomyopathy. Unremarkable Myocardial perfusion imaging based on the stress test done at the [facility] in [facility]. Continue to optimize afterload reducing agents. May consider Entresto once the renal function is stabilized Qualifiers: Heart failure chronicity: unspecified Heart failure type: unspecified Qualified Code(s): I50.9 - Heart failure, unspecified (2) Elevated troponin: Most likely from type II [place]. No acute ischemic EKG changes. We received the medical records from [place]. Patient was found to have no evidence of ischemia based on the perfusion scan. (3) Acute kidney injury: This could be multifactorial. Her history of uncontrolled diabetes could be a contributing factor. Heart failure causing acute kidney injury also could be a contributing factor. The creatinine level seems to be coming down at this point. (4) Benign hypertension: The blood pressure seems to be getting under control. Will continue to optimize medications. (5) T2DM (type 2 diabetes mellitus): Aggressive management of the diabetes would be appropriate. 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 Bipolar disorder Continue on the current dose of the medications. Consider Entresto as an outpatient, if the kidney function is stable and the nephrology service is agreeable Discussed with the patient regarding cardiac catheterization. Shared decision was made not to undergo the angiogram. If the patient remains stable, may be discharged home today. Appointment the [facility] to be seen by the nurse practitioner in 1 week Appoint with me in the office in 1 month Attestations 2 Medical Necessity Statement*: Possible discharge home today Coding Level of Care Code 85247 Diagnoses Congestive heart failure, unspecified HF chronicity, unspecified heart failure type I50.9 Heart failure chronicity: unspecified Heart failure type: unspecified Elevated troponin R79.89 Acute kidney injury N17.9 Benign hypertension I10 Type 2 diabetes mellitus without complication, with long-term current use of insulin E11.9; Z79.4 Diabetes mellitus long-term insulin use: with long-term use Diabetes mellitus complication status: without complication
--- NOTE | 2024-03-14 13:24 | PC.NURSE ---
discharge instructions given and explained.pt verb understanding of instructions.discharged via w/c to exit at this time.son to drive pt home
--- NOTE | 2024-03-15 15:05 | PC.NURSE ---
I received an email from Franklin Beasley, Operational Review Sergeant for Endocrinology asking for clarification on Furosemide, Metoprolol, and Nifedipine as the orders and the quantities ordered were matching. I called and spoke with [facility] pharmacy and they provided the specific information needing clarified. I called for clarification to Dr. Caldwell and obtained the following verbal orders: Furosemide 40 mg 1 tablet PO BID quantity 30, intended 15 day supply until she follows up with cardiology; refills none, Metoprolol 50 mg 1 tablet PO BID quantity 60; refills none, and Nifedipine 90 mg 1 tablet PO daily quantity 30; refills none. I called back to [facility] pharmacy and spoke with David, pharmacist and provided him the clarification orders listed above. He verbalizes understanding and states they will fill these as ordered. I attempted to call the patient to let her know that there were a couple of slight changes in the ordered medication, however there was no answer. I called and spoke with her brother, listed on her PHI, and informed him of this information. I explained that the doses in the d/c paperwork and what is written on the bottles would be slightly different, but I assured him the medication bottles were correct. Her verbalized understanding and denies further questions/concerns.
== END 2024-03-14 13:25 | disposition home or self-care (01) | DRG 280 ==
LOC: ER 03-10 00:16 → CSU 03-10 00:38
PROVIDERS: Emergency Medicine; Internal Medicine Cardiovascular Disease; Admitting Provider Internal Medicine; Emergency Provider Nurse Practitioner; PCP Nurse Practitioner; Visit Provider Student in an Organized Health Care Education/Training Program
DX: I13.0 Hypertensive heart and chronic kidney disease with heart failure and stage 1 through stage 4 chronic kidney disease, or unspecified chronic kidney disease (principal); I50.23 Acute on chronic systolic (congestive) heart failure; I21.A1 Myocardial infarction type 2; N17.9 Acute kidney failure, unspecified; R09.02 Hypoxemia; I42.8 Other cardiomyopathies; E11.22 Type 2 diabetes mellitus with diabetic chronic kidney disease; N18.9 Chronic kidney disease, unspecified; D64.9 Anemia, unspecified; E78.5 Hyperlipidemia, unspecified; E66.01 Morbid (severe) obesity due to excess calories; Z68.33 Body mass index [BMI] 33.0-33.9, adult; Z11.52 Encounter for screening for COVID-19; Z79.4 Long term (current) use of insulin; Z79.82 Long term (current) use of aspirin; Z82.49 Family history of ischemic heart disease and other diseases of the circulatory system
CPT/HCPCS: 0241U; 36415; 36416; 36600; 51702; 74177; 80048; 80053; 81001; 82274; 82607; 82805; 82962; 83036; 83605; 83690; 83735; 83880; 84100; 84156; 84443; 84478; 84484; 85025; 85049; 85378; 85730; 93005; 93306; 94640; 94760; 96372; 96374; 96375; 96376; 99255; 99285; A9270; J1200; J1644; J1815; J1940; J2543; J2919

== ENCOUNTER → 2024-04-04 13:16 | Outpatient (BNVA) | payer MEDICAID, SELFPAY | PROVIDERS: PCP Nurse Practitioner; Visit Provider Nurse Practitioner Family | DX: I11.0 Hypertensive heart disease with heart failure (principal); I50.9 Heart failure, unspecified; E11.9 Type 2 diabetes mellitus without complications; E78.5 Hyperlipidemia, unspecified; R60.9 Edema, unspecified; N17.9 Acute kidney failure, unspecified; Z79.4 Long term (current) use of insulin | CPT/HCPCS: 36415; 80048; 83880; 99214 ==

== ENCOUNTER 2024-05-09 09:48 | Emergency (ER) | payer MEDICAID, SELFPAY ==
[2024-05-09 09:49] VITALS: BP 178/94; PULSE 83; RESP 16; TEMP 36.4; O2SAT 97; BMI 32.4
--- NOTE | 2024-05-09 09:49 | XR_ITS ---
WS: [id number] Portable AP upright chest, 05/09/2024 Clinical Data: dyspnea/cough Comparison: None. Findings: There are bilateral patchy pulmonary opacities especially in the lower lobes. The heart is enlarged. There may be a small left effusion. No nodules or masses are seen. There is no pneumothorax. XR/XR chest 1V portable [id number] Impression: 1. Bilateral patchy pulmonary opacities in the lower lobes which may represent pulmonary edema, atelectasis and/or early pneumonia. 2. Cardiomegaly and left pleural effusion.
--- NOTE | 2024-05-09 09:55 | W.ED.SOB ---
HPI - SOB/Dyspnea General: Chief Complaint: Shortness of Breath/Dyspnea Stated Complaint: resp distress Time Seen by Provider: 05/09/24 09:49 History of Present Illness: HPI Narrative: 49-year-old female presents emergency room complaining of shortness of breath cough several days generalized myalgias she denies fever cough not been productive no hemoptysis. No significant chest pain. Patient does have a history of chronic kidney disease as well as congestive heart failure. Mild increase swelling in her legs no recent medication changes. Associated symptoms: Deny abdominal pain, chest pain or fever(s) Related Data Home Medications ?Medication ?Instructions ?Recorded ?Confirmed aspirin 81 mg capsule 81 mg PO DAILY 03/10/24 05/09/24 insulin lispro 100 unit/mL See Rx Instructions .Route .COMPLEX 03/10/24 05/09/24 subcutaneous solution pioglitazone 30 mg tablet 30 mg PO DAILY 03/10/24 05/09/24 rosuvastatin 40 mg tablet 40 mg PO DAILY 03/10/24 05/09/24 azithromycin 250 mg tablet See Rx Instructions .Route .COMPLEX 05/09/24 05/09/24 calcium carbonate 1,000 1 tab PO QID PRN Indigestion 05/09/24 05/09/24 mg-simethicone 60 mg chewable tablet (Antacid Anti-Gas (calcium carb-simeth)) fenofibrate nanocrystallized 145 145 mg PO DAILY 05/09/24 05/09/24 mg tablet furosemide 20 mg tablet 20 mg PO BID 05/09/24 05/09/24 nifedipine 60 mg tablet,extended 60 mg PO DAILY 05/09/24 05/09/24 release 24 hr potassium chloride 20 mEq See Rx Instructions .Route .COMPLEX 05/09/24 05/09/24 tablet,extended release(part/cryst) Previous Rx's ?Medication ?Instructions ?Recorded hydralazine 25 mg tablet 25 mg PO TID #240 tabs 04/04/24 metoprolol tartrate 25 mg tablet 50 mg (2 x 25 mg) PO BID@0900,2100 04/04/24 #180 tabs albuterol sulfate 90 mcg/actuation 2 inh inhalation Q4H PRN shortness 05/09/24 aerosol inhaler of breath or wheezing #18 grams cefdinir 300 mg capsule 300 mg PO BID 10 days #20 caps 02/06/25 prednisone 20 mg tablet 20 mg PO TID #15 tabs 05/09/24 Allergies Allergy/AdvReac Type Severity Reaction Status Date / Time Iodinated Contrast Media Allergy ALGY-Hives Verified 04/04/24 13:35 morphine Allergy ALGY-Hives Verified 04/04/24 13:35 Review of Systems Const: Denies: fever(s) or chills Card: Denies: chest pain Resp: Reports: dyspnea GI: Denies: abdominal pain : Denies: dysuria, urinary frequency or urinary urgency Musc: Denies: neck pain or back pain Skin/Breast: Denies: rash PFSH ED PFSH: Medical History (Updated 05/17/24 @ 00:00 by JEWEL Pedersen) T2DM (type 2 diabetes mellitus) Congestive heart failure section wound seroma, Hypertension Diabetes Family History Father CAD (coronary artery disease) Social History Smoking and tobacco/nicotine status: never used tobacco/nicotine Physical Exam Const: COMMON NORMALS: no acute distress GENERAL APPEARANCE: cooperative and comfortable ORIENTATION/CONSCIOUSNESS: Yes awake, Yes oriented to person, Yes oriented to place and Yes oriented to time HENMT: COMMON NORMALS: normocephalic, atraumatic and hearing grossly normal bilaterally HEAD & SCALP: normocephalic and atraumatic Resp: COMMON NORMALS: normal respiratory effort, No retractions and No use of accessory muscles AUSCULTATION: crackles Laterality: bilateral (Bases) Cardio: COMMON NORMALS: regular rate, regular rhythm and No murmurs present (Cardio) RATE: regular rate RHYTHM: regular rhythm GI: COMMON NORMALS: Soft to palpation and No hepatosplenomegaly present AUSCULTATION: Yes normoactive bowel sounds PALPATION: Yes Soft to palpation, No Tenderness to palpation present (GI), No Guarding due to palpation present (GI) and Yes No hepatosplenomegaly present Extremity: COMMON NORMALS: normal to inspection, capillary refill normal, no clubbing, cyanosis or edema, no calf tenderness and no pedal edema Neuro: SENSORIUM/ORIENTATION: Yes oriented to person, Yes oriented to place and Yes oriented to time Skin: COMMON NORMALS: no rashes or lesions noted GENERAL SKIN EXAM: no rashes or lesions noted Course Vital Signs: Vital signs: Vital Signs Temperature 97.5 F L 05/09/24 09:49 Pulse Rate 95 05/09/24 12:34 Respiratory Rate 18 05/09/24 10:38 Blood Pressure 185/117 05/09/24 12:34 Pulse Oximetry 95 05/09/24 12:34 Oxygen Delivery Me thod Room Air 05/09/24 11:06 MDM - SOB/Dyspnea Medical Decision Making Pt has worsening creatine and pneumonia. Encouraged to admit she declines. Treat as out patient. Started on prednisone and cefdinir use albuterol regularly. If things worsen or change return to the emergency room. Hold Lasix for 5 days recheck kidney function with primary care doctor Medical Records I reviewed the patient's medical records. Lab Data I reviewed the patient's lab results. 05/09/24 10:02 05/09/24 10:02 Labs/Radiology: Radiology Impressions Chest X-Ray 05/09/24 09:49 Impression: 1. Bilateral patchy pulmonary opacities in the lower lobes which may represent pulmonary edema, atelectasis and/or early pneumonia. 2. Cardiomegaly and left pleural effusion. Laboratory Results WBC 7.50 10^3/uL (3.29-11.43) 05/09/24 10:02 RBC 3.60 10^6/uL (3.85-5.65) L 05/09/24 10:02 Hgb 9.90 g/dL (11.27-16.99) L 05/09/24 10:02 Hct 31.6 % (36-47) L 05/09/24 10:02 MCV 87.8 fl (85-98) 05/09/24 10:02 MCH 27.5 pg (27-33) 05/09/24 10:02 MCHC 31.3 g/dL (30-55) 05/09/24 10:02 RDW 13.7 % (12.1-15.1) 05/09/24 10:02 Plt Count 408 10^3/cmm (157-399) H 05/09/24 10:02 MPV 10.3 fL (7.4-10.4) 05/09/24 10:02 Neut % (Auto) 61.1 % 05/09/24 10:02 Lymph % (Auto) 22.9 % 05/09/24 10:02 Parker % (Auto) 6.5 % 05/09/24 10:02 Eos % (Auto) 7.9 % 05/09/24 10:02 Baso % (Auto) 1.1 % 05/09/24 10:02 Neut # (Auto) 4.58 10^3/uL (1.8-7.7) 05/09/24 10:02 Lymph # (Auto) 1.7 10^3/uL (0.8-4.8) 05/09/24 10:02 Parker # (Auto) 0.5 10^3/uL (0.2-0.9) 05/09/24 10:02 Eos # (Auto) 0.6 10^3/uL (0.0-0.8) 05/09/24 10:02 Baso # (Auto) 0.1 10^3/uL (0.0-0.1) 05/09/24 10:02 Nucleated RBC % (auto) 0 % 05/09/24 10:02 Nucleated RBCs # 0.0 /100WBC 05/09/24 10:02 Specimen Type Arterial 05/09/24 09:58 Sample Site Radial, left 05/09/24 09:58 ABG pH 7.45 (7.35-7.45) 05/09/24 09:58 ABG pCO2 33.7 mmHg (35-45) L 05/09/24 09:58 ABG pO2 63.4 mmHg (80.0-100.0) L 05/09/24 09:58 ABG PO2/FiO2 Ratio 301 05/09/24 09:58 ABG HCO3 23.6 mmol/L (22-26) 05/09/24 09:58 ABG O2 Saturation 94.0 05/09/24 09:58 ABG Base Excess 0.0 mmol/L (-2.0-2.0) 05/09/24 09:58 Josafat Test Pos 05/09/24 09:58 A-a O2 Gradient 5.7 mmHg (5-10) 05/09/24 09:58 Hematocrit 30.8 % (37-47) L 05/09/24 09:58 Hgb O2 Saturation 91.8 % (95-100) L 05/09/24 09:58 Carboxyhemoglobin 1.2 %THgb (0.4-20.1) 05/09/24 09:58 Methemoglobin 1.1 % (0.4-1.5) 05/09/24 09:58 Total Hemoglobin 10.1 g/dL (12-16) L 05/09/24 09:58 Sodium 138.0 mmol/L (131-143) 05/09/24 09:58 Potassium 4.5 mmol/L (3.5-5.0) 05/09/24 09:58 Glucose 163.0 mg/dL (70-115) H 05/09/24 09:58 Ionized Calcium 1.2 mmol/L (1.1-1.4) 05/09/24 09:58 O2 Delivery Device Room air 05/09/24 09:58 FiO2 21.0 % 05/09/24 09:58 Patient Accounting Representative ID [place] 05/09/24 09:58 Sodium 139 mmol/L (136-145) 05/09/24 10:02 Potassium 4.8 mmol/L (3.5-5.1) 05/09/24 10:02 Chloride 105 mmol/L (98-107) 05/09/24 10:02 Carbon Dioxide 23 mmol/L (22-29) 05/09/24 10:02 Anion Gap 15.8 (5-19) 05/09/24 10:02 BUN 32 mg/dL (6-20) H 05/09/24 10:02 Creatinine 2.6 mg/dL (0.5-0.9) H 05/09/24 10:02 GFR Calculation 19.5 mL/min (90-130) L 05/09/24 10:02 Glucose 180 mg/dL (65-115) H 05/09/24 10:02 Calculated Osmolality 299 mOsm/kg (285-295) H 05/09/24 10:02 Calcium 8.5 mg/dL (8.5-10.5) 05/09/24 10:02 Total Bilirubin 0.2 mg/dL (0.15-1.2) 05/09/24 10:02 AST 21 U/L (0-32) 05/09/24 10:02 ALT 9 U/L (0-33) 05/09/24 10:02 Alkaline Phosphatase 48 U/L (35-105) 05/09/24 10:02 Total Protein 5.4 g/dL (6.6-8.7) L 05/09/24 10:02 Albumin 2.5 g/dL (3.5-5.2) L 05/09/24 10:02 Globulin 2.9 g/dL (1.3-4.6) 05/09/24 10:02 Coronavirus (PCR) Negative (Negative) 05/09/24 10:18 Influenza A (PCR) Negative (Negative) 05/09/24 10:18 Influenza Type B (PCR) Negative (Negative) 05/09/24 10:18 RSV (PCR) Negative (Negative) 05/09/24 10:18 All radiology interpretation(s) finalized by discharge Discharge Plan Discharge Patient Disposition: Home Clinical Impression: Acute kidney injury, Community acquired pneumonia Condition: Stable Prescriptions: New prednisone 20 mg tablet 20 mg PO TID Qty: 15 0RF Rx Instructions: 1 p.o. 3 times daily x3 days, 1 p.o. twice daily x2 days, 1 p.o. daily x2 days albuterol sulfate 90 mcg/actuation HFA aerosol inhaler 2 inh INHALATION Q4H PRN (Reason: shortness of breath or wheezing) Qty: 18 0RF cefdinir 300 mg capsule 300 mg PO BID 10 Days Qty: 20 0RF No Action metoprolol tartrate 25 mg tablet 50 mg PO BID@0900,2100 Qty: 180 1RF hydralazine 25 mg tablet 25 mg PO TID Qty: 240 5RF azithromycin 250 mg tablet See Rx Instructions .ROUTE .COMPLEX Rx Instructions: TAKE 2 TABLETS BY MOUTH ON DAY ONE THEN TAKE 1 TABLET DAILY FOR 4 DAYS. potassium chloride 20 mEq tablet,ER particles/crystals See Rx Instructions .ROUTE .COMPLEX Rx Instructions: TAKE TWO TABLETS BY MOUTH IN THE MORNING and ONE IN THE EVENING. Take with food. nifedipine 60 mg tablet extended release 24hr 60 mg PO DAILY furosemide 20 mg tablet 20 mg PO BID Antacid Anti-Gas (ca carb-sim) 1,000-60 mg Tablet,Chewable 1 tab PO QID PRN (Reason: Indigestion) fenofibrate nanocrystallized 145 mg tablet 145 mg PO DAILY insulin lispro 100 unit/mL solution See Rx Instructions .ROUTE .COMPLEX Rx Instructions: Inject 7 units subq with meals if bs is below 200 BG, above 200 inject 12 units. pioglitazone 30 mg Tablet 30 mg PO DAILY rosuvastatin 40 mg Tablet 40 mg PO DAILY aspirin 81 mg Capsule 81 mg PO DAILY Discharge Orders: Discharge ED (Routine); Ordered 05/09/24 Ordered By: Edmar Snider Referrals: Jimmy Antonio, DIRECTOR OF TAX SERVICES [Primary Care Provider] - Discharge Diet: Usual diet Discharge Activity: Increase activity as tolerated Patient Instructions: Opioid Safety, Pain Management Activity Restrictions/Additional Instructions: Thank you for choosing [facility] for your healthcare needs today. It is very important that you follow up as instructed or that you return to the Emergency Department should you have concerns or if your condition changes or worsens in any way. You were seen in the emergency room with complaints of shortness of breath. Wheezing improved with steroid and albuterol treatment. Chest x-ray there is a question of mild early pneumonia. Your white count was normal and your oxygen saturation was good. You had a mild increase in your kidney function. Recommend holding your Lasix for the next 5 days. Also recommend starting oral antibiotics cefdinir 300 mg 1 tablet twice a day for 10 days. Use albuterol as needed for shortness of breath. Follow-up with your primary care doctor next week to have your kidney function rechecked. You were given IV fluids in the emergency room to improve the kidney function as well. Print Language: Congolese Coding Level of Care Code ED Headhunter for Joe Gallagher
[2024-05-09 10:09] LABS: ABG PCO2 33.7 mmHg (35-45); ABG PH Result 7.45 (7.35-7.45); Alveolar-Arterial Oxygen Gradi 5.7 mmHg (5-10); Arterial Blood Gas Hematocrit 30.8 % (37-47); Blood Gas Allen Test Pos; Blood Gas Operator Identificat WALCI; Blood Gas Sample Site Radial, left; Blood Gas Sample Type Arterial; Carboxyhemoglobin 1.2 %THgb (0.4-20.1); HCO3 ABG 23.6 mmol/L (22-26); HGB O2 Sat 91.8 % (95-100); Ionized Calcium Level - ABG 1.2 mmol/L (1.1-1.4); Methemoglobin 1.1 % (0.4-1.5); Oxygen Device ROOM AIR; PO2 ABG 63.4 mmHg (80.0-100.0); PO2 FiO2 Ratio Arterial Blood 301; Potassium Level - ABG 4.5 mmol/L (3.5-5.0); Total Hemoglobin 10.1 g/dL (12-16)
[2024-05-09 10:10] LABS: Basophils # 0.1 10^3/uL (0.0-0.1); Basophils % 1.1 %; Eosinophils # 0.6 10^3/uL (0.0-0.8); Eosinophils % 7.9 %; Hematocrit 31.6 % (36-47); Lymphocytes # 1.7 10^3/uL (0.8-4.8); Lymphocytes % 22.9 %; Mean Corpuscular HGB Conc 31.3 g/dL (30-55); Mean Corpuscular Hemoglobin 27.5 pg (27-33); Mean Corpuscular Volume 87.8 fl (85-98); Mean Platelet Volume 10.3 fL (7.4-10.4); Monocytes # 0.5 10^3/uL (0.2-0.9); Monocytes % 6.5 %; Neutrophils # 4.58 10^3/uL (1.8-7.7); Neutrophils % 61.1 %; Nucleated Red Blood Cells % 0 %; Platelet Count 408 10^3/cmm (157-399); Red Cell Distribution Width 13.7 % (12.1-15.1)
--- NOTE | 2024-05-09 10:23 | ECG_ITS ---
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 Measurements Intervals [place] Rate: 79 P: 43 [place]: 164 QRS: 21 QRSD: 99 T: 49 QT: 367 QTc: 422 Interpretive Statements SINUS RHYTHM Compared to ECG 03/10/2024 03:43:45 Sinus tachycardia no longer present T-wave abnormality no longer present Electronically Signed On 05-09-2024 21:50:47 LIEN SEARCHER by Srinivas Thomas M.D. [email or web address]
[2024-05-09 10:34] LABS: Alanine Aminotransferase 9 U/L (0-33); Albumin Level 2.5 g/dL (3.5-5.2); Alkaline Phosphatase 48 U/L (35-105); Anion Gap 15.8 (5-19); Aspartate Amino Transferase 21 U/L (0-32); Blood Urea Nitrogen 32 mg/dL (6-20); Calcium 8.5 mg/dL (8.5-10.5); Carbon Dioxide 23 mmol/L (22-29); Chloride 105 mmol/L (98-107); Globulin 2.9 g/dL (1.3-4.6); Glomerular Filtration Rate 19.5 mL/min (90-130); Glucose 180 mg/dL (65-115); Osmolality Calculated 299 mOsm/kg (285-295); Potassium 4.8 mmol/L (3.5-5.1); Sodium 139 mmol/L (136-145); Total Bilirubin 0.2 mg/dL (0.15-1.2); Total Protein 5.4 g/dL (6.6-8.7)
[2024-05-09 10:38] VITALS: PULSE 87; RESP 18; O2SAT 99
[2024-05-09] MEDS: ipratropium-albuterol 3 mL Neb INHALATION (10:41)
[2024-05-09 10:46] VITALS: PULSE 82
[2024-05-09 11:06] VITALS: BP 171/92; PULSE 89; O2SAT 95
[2024-05-09] MEDS: sodium chloride 0.9% 1,000 ML 999 ML IV (11:08)
[2024-05-09] MEDS: dexamethasone 10 mg/mL INJ IM (11:08)
[2024-05-09 11:33] LABS: Influenza A NEGATIVE (Negative); Influenza B NEGATIVE (Negative); Respiratory Syncytial Virus Ce NEGATIVE (Negative); SARS-CoV-2 PCR NEGATIVE (Negative)
[2024-05-09 12:34] VITALS: BP 185/117; PULSE 95; O2SAT 95
--- NOTE | 2024-05-10 09:02 | DCPLANNER ---
messaged wpfm for er f/u
== END 2024-05-09 12:37 | disposition home or self-care (01) ==
PROVIDERS: Emergency Provider Family Medicine; PCP Nurse Practitioner
DX: N17.9 Acute kidney failure, unspecified (principal); J18.9 Pneumonia, unspecified organism; Z11.52 Encounter for screening for COVID-19; Z79.82 Long term (current) use of aspirin; Z79.4 Long term (current) use of insulin; E11.9 Type 2 diabetes mellitus without complications; I11.0 Hypertensive heart disease with heart failure; I50.9 Heart failure, unspecified
CPT/HCPCS: 36415; 36600; 71045; 80051; 80053; 82330; 82805; 85025; 87637; 93005; 94640; 99285; J1100; J7030

== ENCOUNTER 2024-05-31 22:17 | Emergency (ER) | payer MEDICAID, SELFPAY ==
[2024-05-31 22:21] VITALS: BP 191/100; PULSE 90; RESP 20; TEMP 36.6; O2SAT 94; BMI 32.4
--- NOTE | 2024-05-31 22:43 | CTR_ITS ---
PROCEDURE INFORMATION: Exam: CT Chest Without Contrast; Diagnostic Exam date and time: 05/31/2024 11:01 PM Age: 49 years old Clinical indication: Injury or trauma; Abdominal wall; Blunt trauma (contusions or hematomas); Prior surgery; Surgery date: 6+ months; Surgery type: Gb. Csection; Patient sustained a fall five days ago landing onto RT side on ground walking up short flight of steps. C/O persitent RT rib, RT abd, and RT hip pain. History of chf and ckd. ; Additional info: Right rib pain, ruq pain, R hip pain, fall 5 days ago TECHNIQUE: Imaging protocol: Diagnostic computed tomography of the chest without contrast. Radiation optimization: All CT scans at this facility use at least one of these dose optimization techniques: automated exposure control; mA and/or kV adjustment per patient size (includes targeted exams where dose is matched to clinical indication); or iterative reconstruction. COMPARISON: 1. CR XR chest 1V portable [id number] 05/09/2024 10:[address] abdomen pelvis w con* [id number] 03/09/2024 10:30 PM RADIATION DOSE METRICS: Total DLP (mGy-cm): 1827.09 FINDINGS: Lungs: Relaxation atelectasis in bilateral lower lobes. Atelectasis within the lingula. A few ground-glass opacities are seen in the dependent portions of the lower lobes bilaterally. Pleural spaces: Moderate bilateral pleural effusions have increased since 03/09/2024. Heart: Decreased attenuation of the cardiac blood pool relative to the myocardium. Coronary arteries: Trace coronary artery calcifications. Lymph nodes: Unremarkable. No enlarged lymph nodes. Vasculature: Dilated main pulmonary artery measures 3.5 cm. Bones/joints: Unremarkable. No acute fracture. Soft tissues: Unremarkable. PROCEDURE INFORMATION: Exam: CT Abdomen And Pelvis Without Contrast Exam date and time: 05/31/2024 11:01 PM Age: 49 years old Clinical indication: Injury or trauma; Abdominal wall; Blunt trauma (contusions or hematomas); Prior surgery; Surgery date: 6+ months; Surgery type: Gb. Csection; Patient sustained a fall five days ago landing onto RT side on ground walking up short flight of steps. C/O persitent RT rib, RT abd, and RT hip pain. History of chf and ckd. ; Additional info: Right rib pain, ruq pain, R hip pain, fall 5 days ago TECHNIQUE: Imaging protocol: Computed tomography of the abdomen and pelvis without contrast. Radiation optimization: All CT scans at this facility use at least one of these dose optimization techniques: automated exposure control; mA and/or kV adjustment per patient size (includes targeted exams where dose is matched to clinical indication); or iterative reconstruction. COMPARISON: CT abdomen pelvis w con* [id number] 03/09/2024 10:30 PM RADIATION DOSE METRICS: Total DLP (mGy-cm): 1827.09 FINDINGS: Liver: Liver remains enlarged. Gallbladder and biliary ducts: Status post cholecystectomy. Pancreas: Normal. No ductal dilation. Spleen: Normal. No splenomegaly. Adrenal glands: Normal. No mass. Kidneys and ureters: Normal. No hydronephrosis. Stomach and bowel: Ongoing moderate colonic stool. No bowel obstruction. Appendix: No evidence of appendicitis. Intraperitoneal space: Trace free pelvic fluid. Vasculature: Mild scattered atherosclerotic aortoiliac calcifications. No abdominal aortic aneurysm. Lymph nodes: Unremarkable. No enlarged lymph nodes. Urinary bladder: Unremarkable as visualized. Reproductive: Unremarkable as visualized. Bones/joints: Unremarkable. No acute fracture. Soft tissues: Ongoing diffuse anasarca, though improved from prior. CT/[place] [id number] IMPRESSION: 1. No evidence of acute injury to the chest. 2. Moderate bilateral pleural effusions, increased from prior. Adjacent relaxation atelectasis. As before, superimposed infection is difficult to exclude. 3. Dilated main pulmonary artery can be seen with pulmonary arterial hypertension. 4. Imaging features of anemia. IMPRESSION: 1. No evidence of acute injury to the abdomen/pelvis. 2. Ancillary findings as above are similar to prior.
--- NOTE | 2024-05-31 22:47 | ED_ITS ---
<Statement entered by Stephen Hirsch MD - 06/01/24 03:46> I have also seen and examined the patient. She appears older than stated age. She has pale skin. She has some peripheral edema. She is not in any distress. She endorses eating 2 meals a day on average. It is noted that she has a significantly low albumin. She also has worsening renal function and anemia. As far as traumatic injuries, we decided to do a CT scan of her chest abdomen and pelvis to increase his sensitivity for rib fractures, rule out pneumothorax, solid organ injury, etc. We did not find any evidence of acute injury but we do have evidence of her worsening chronic health problems eg bilateral pleural effusions. Discussed all of the chronic medical problems with her. She does have a primary care doctor that she is established with. At this time we do not have any reason to admit her for any acute medical problems but I am highly concerned about her pattern of progressive worsening health. I encouraged the patient to follow-up with her primary care doctor this week. HPI - Fall 2 General: Chief Complaint: Fall Stated Complaint: FALL Time Seen by Provider: 05/31/24 22:21 Source: patient Mode of arrival: EMS Limitations: no limitations History of Present Illness: Patient is a 49-year-old female that presents to the emergency department with right rib pain, right-sided abdominal pain and right hip pain after a fall. She comes in by ambulance. She states she fell on Monday (5 days ago) and injured herself. She states she does have a history of edema in her legs and they will get heavy and not functioning correctly from time to time. She states she takes a water pill for this. She reports that she was climbing into her motor home on Monday when her legs got weak and her knee gave out. She states this does happen to her from time to time. She states she fell backwards and onto the door frame but then she fell backwards landing on her right side. She states she did hit her head but did not lose any consciousness. She states she is not on any blood thinners. She has not had any blood in her urine. She denies coughing up any blood. She denies any significant right shoulder pain but does report pain in her right ribs, right upper abdomen and right hip. She states she has been able to walk since this happened. She denies any numbness or tingling. She denies any loss of consciousness. She denies any headache or tenderness to her scalp at this time. She does report an allergy to IV contrast dye and morphine. She states because of the rash and some difficulty breathing. She also reports history of impaired renal function and is scheduled to follow- up with a editor producer soon. She presents to the emergency department for further evaluation and treatment. Associated symptoms-after fall: Reports abdominal pain (Night upper quadrant abdominal pain); Denies chest pain, confusion, headache(s), hematuria, neck pain or vertigo Related Data Home Medications ?Medication ?Instructions ?Recorded ?Confirmed aspirin 81 mg capsule 81 mg PO DAILY 03/10/2409/25 insulin lispro 100 unit/mL See Rx Instructions .Route .COMPLEX 03/10/24 05/09/24 subcutaneous solution pioglitazone 30 mg tablet 30 mg PO DAILY 03/10/2409/25 rosuvastatin 40 mg tablet 40 mg PO DAILY 03/10/2409/25 azithromycin 250 mg tablet See Rx Instructions .Route .COMPLEX 05/09/24 05/09/24 calcium carbonate 1,000 1 tab PO QID PRN Indigestion 05/09/24 05/09/24 mg-simethicone 60 mg chewable tablet (Antacid Anti-Gas (calcium carb-simeth)) fenofibrate nanocrystallized 145 145 mg PO DAILY 05/0905/09/24 mg tablet furosemide 20 mg tablet 20 mg PO BID 05/09/24 nifedipine 60 mg tablet,extended 60 mg PO DAILY 05/09/24 release 24 hr potassium chloride 20 mEq See Rx Instructions .Route . COMPLEX 05/09/24 05/09/24 tablet,extended release(part/cryst) Previous Rx's ?Medication ?Instructions ?Recorded hydralazine 25 mg tablet 25 mg PO TID #240 tabs 04/04 metoprolol tartrate 25 mg tablet 50 mg (2 x 25 mg) PO BID@0900,2100 04/04/24 #180 tabs albuterol sulfate 90 mcg/actuation 2 inh inhalation Q4 H PRN shortness 05/09/24 aerosol inhaler of breath or wheezing #18 gr ams hydrocodone 5 mg-acetaminophen 325 1 tab PO Q4H PRN pa in #10 tabs 06/01/24 mg tablet Allergies Allergy/AdvReac Type Severity Reaction Status Date / Time Iodinated Contrast Media Allergy ALGY-Hives Verified 04/04/24 13:35 morphine Allergy ALGY-Hives Verified 04/04/24 13:35 Review of Systems 2 Const: Denies: fever(s) or chills Eyes: Denies: change in vision, blurry vision, eye discharge or eye redness ENMT: Denies: throat pain, odynophagia or nasal congestion Card: Reports: edema (Chronic); Denies: chest pain or syncope Resp: Reports: pain on inspiration (Right rib pain); Denies: productive cough, non-productive cough, wheezing or hemoptysis GI: Reports: abdominal pain (Night upper quadrant abdominal pain); Denies: nausea, vomiting, hematemesis, dysphagia or diarrhea : Reports: flank pain (Right flank after the fall); Denies: difficulty voiding, dysuria, urinary frequency or hematuria Musc: Reports: extremity pain (Right lateral hip); Denies: neck pain or back pain Skin/Breast: Denies: rash, pruritus, erythema or changes in skin color Neuro: Reports: frequent falls; Denies: headache(s), numbness in extremities, weakness in extremities, sensory changes, dizziness, vertigo, confusion or Slurred speech present Psych: Denies: anxiety or depression Endo: Denies: polyuria or polydipsia Eliseo/Lymph: Denies: petechiae All/Imm: Denies: throat swelling or tongue swelling PFSH ED 2 PFSH: Medical History T2DM (type 2 diabetes mellitus) Congestive heart failure section wound seroma, Hypertension Diabetes Family History Father CAD (coronary artery disease) Social History Smoking and tobacco/nicotine status: never used tobacco/nicotine Physical Exam 2 Const: COMMON NORMALS: no acute distress, patient oriented x3 and alert E XAM LIMITATIONS: no altered mental status GENERAL APPEARANCE: cooperative ORIENTATION/CONSCIOUSNESS: Yes awake, Yes oriented to person, Yes oriented to place and Yes oriented to time; not confused HENMT: COMMON NORMALS: normocephalic, atraumatic, external ears normal and TM's normal bilaterally (No hemotympanums) HEAD & SCALP: normal to inspection, normocephalic and atraumatic FACE & SINUS: normal facial exam EXTERNAL EAR: Yes external ears normal TYMPANIC MEMBRANE: TM's normal bilaterally (No hemotympanums) MOUTH: Normal oral and palatal mucosa present and tongue normal Eye: COMMON NORMALS: Equal, round and reactive pupils present, EOMs intact bilaterally and conjunctivae normal CONJUNCTIVA: Yes conjunctivae normal P UPIL: Yes Equal, round and reactive pupils present Neck/C-Spine: COMMON NORMALS: full ROM, no lymphadenopathy and no meningeal signs GENERAL: Yes normal visual inspection, No anterior neck swelling and No tender Lymph: LYMPHATIC: no lymphadenopathy noted Chest: CHEST: No crepitus and Yes other (Patient has some right lateral tenderness but there is no obvious bruising) Resp: COMMON NORMALS: normal respiratory effort and clear to auscultation bilaterally EFFORT & INSPECTION: Yes able to speak in complete sentences A USCULTATION: clear to auscultation bilaterally, no crackles, no rales, no rhonchi and no wheezes Cardio: COMMON NORMALS: regular rate and regular rhythm RATE: regular rate RHYTHM: regular rhythm BRUITS: no abdominal aortic bruits GI: COMMON NORMALS: Soft to palpation INSPECTION: Yes normal to inspection and No abdominal wall ecchymosis AUSCULTATION: Yes normoactive bowel sounds PALPATION: Yes Soft to palpation, Yes Tenderness to palpation present (GI) (Mild right upper quadrant tenderness with no guarding or rebound tenderness) Details: RLQ and No Guarding due to palpation present (GI) RECTAL EXAM: d eferred : BLADDER/KIDNEY EXAM: Yes CVA tenderness (Mild on the right) Back/Pelvis: COMMON NORMALS: thoracic and lumbar spine normal to inspection and no thoracic nor lumbar tenderness GENERAL BACK: Yes CVA tenderness (Mild on the right) CVA tenderness: right and No ecchymosis Extremity: GENERAL: Yes edema (Bilateral trace, patient reports this is chronic) RIGHT UPPER EXTREMITY: Yes shoulder joint, Yes upper arm, Yes elbow joint, Yes lower arm, Yes wrist and Yes hand & digits LEFT UPPER EXTREMITY: Y es shoulder joint, Yes upper arm, Yes elbow joint, Yes lower arm, Yes wrist and Yes hand & digits RIGHT LOWER EXTREMITY: Yes hip joint (There is some lateral tenderness of the right hip), Yes knee joint, Yes lower leg, Yes foot & digits and Yes foot & digits LEFT LOWER EXTREMITY: Yes hip joint, Yes upper leg, Yes knee joint, Yes lower leg, Yes ankle joint and Yes foot & digits Neuro: COMMON NORMALS: patient oriented x3, CN's II-XII intact bilaterally, moves all extremities and no sensory deficits noted SENSORIUM/ORIENTATION: Y es alert, Yes oriented to person, Yes oriented to place and Yes oriented to time MENINGEAL SIGNS: Yes no meningeal signs CRANIAL NERVES: Yes CN normal except as noted SPEECH: speech normal SENSORY EXAM: Yes extremities and Trunk sensory exam abnormal MOTOR EXAM: 5/5 motor strength present throughout and Pronator motor function not present Psych: COMMON NORMALS: mental status grossly normal and speech normal A TTITUDE: Yes calm SPEECH: Yes normal speech Skin: COMMON NORMALS: no rashes or lesions noted GENERAL SKIN EXAM: no rashes or lesions noted TRAUMA: no lacerations or abrasions Course 2 ED course: I discussed case with Dr. Hirsch. Since the patient does have renal insufficiency and an allergy to iodine contrast he recommended getting a noncontrast CT scan of the chest, abdomen and pelvis to evaluate the ribs, abdomen and right hip. He will place an order for fentanyl for pain control. Dr. Hirsch reviewed the exam and lab findings with me. Patient continues to have anemia and her kidney function is a little bit worse. She states she has been taking 800 mg ibuprofen for her pain. She does have some low albumin which could be causing worsening of her pleural effusion and anasarca. He recommended that she follow-up with her primary care provider over the next few days for a recheck. Vital Signs: Vital signs: Vital Signs Temperature 98 F 05/31/24 22:21 Pulse Rate 89 06/01/24 00:00 Respiratory Rate 16 06/01/24 00:00 Blood Pressure 166/111 06/01/24 00:00 Pulse Oximetry 99 06/01/24 00:00 Oxygen Delivery Me thod Room Air 05/31/24 23:09 MDM - Fall Medical Decision Making Patient was advised of the exam, lab and imaging findings. She continues to have chronic anemia. She was noted to have an increased pleural effusion today. Thankfully, there is no sign of rib fracture, hip fracture or obvious injury to the solid organs in the abdomen. The patient does have pedal edema and anasarca which is chronic for her. She does have chronic kidney disease and states she is supposed to be following up with a editor producer this coming month. She was advised to discontinue taking ibuprofen because her kidney function is poor. I did recommend that she continue taking her blood pressure medicines as directed. I advised the patient to follow-up with her primary care provider over the next few days for recheck. I also advised that she follow-up with a editor producer as scheduled. Patient was provided with a prescription for some hydrocodone that she can use as directed for pain. She states she has tolerated this well in the past but has not been on it for a while. She denies any blood in her stools or bruising that she has noted. She was advised to return immediately to the emergency department with any worsening symptoms. The patient expressed understanding. Medical Records I reviewed the patient's medical records. Lab Data I reviewed the patient's lab results. 05/31/24 23:51 05/31/24 23:51 Radiology Impressions Chest/Abdomen/Pelvis CT 05/31/24 22:43 IMPRESSION: 1. No evidence of acute injury to the chest. 2. Moderate bilateral pleural effusions, increased from prior. Adjacent relaxation atelectasis. As before, superimposed infection is difficult to exclude. 3. Dilated main pulmonary artery can be seen with pulmonary arterial hypertension. 4. Imaging features of anemia. IMPRESSION: 1. No evidence of acute injury to the abdomen/pelvis. 2. Ancillary findings as above are similar to prior. Laboratory Results WBC 5.25 10^3/uL (3.29-11.43) 05/31/24 23:51 RBC 3.24 10^6/uL (3.85-5.65) L 05/31/24 23:51 Hgb 8.80 g/dL (11.27-16.99) L 05/31/24 23:51 Hct 28.4 % (36-47) L 05/31/24 23:51 MCV 87.7 fl (85-98) 05/31/24 23:51 MCH 27.2 pg (27-33) 05/31/24 23:51 MCHC 31.0 g/dL (30-55) 05/31/24 23:51 RDW 14.1 % (12.1-15.1) 05/31/24 23:51 Plt Count 338 10^3/cmm (157-399) 05/31/24 23:51 MPV 9.8 fL (7.4-10.4) 05/31/24 23:51 Neut % (Auto) 56.4 % 05/31/24 23:51 Lymph % (Auto) 20.6 % 05/31/24 23:51 [place] % (Auto) 7.0 % 05/31/24 23:51 Eos % (Auto) 14.5 % 05/31/24 23:51 Baso % (Auto) 1.1 % 05/31/24 23:51 Neut # (Auto) 2.96 10^3/uL (1.8-7.7) 05/31/24 23:51 Lymph # (Auto) 1.1 10^3/uL (0.8-4.8) 05/31/24 23:51 [place] # (Auto) 0.4 10^3/uL (0.2-0.9) 05/31/24 23:51 Eos # (Auto) 0.8 10^3/uL (0.0-0.8) 05/31/24 23:51 Baso # (Auto) 0.1 10^3/uL (0.0-0.1) 05/31/24 23:51 Nucleated RBC % (auto) 0 % 05/31/24 23:51 Nucleated RBCs # 0.0 /100WBC 05/31/24 23:51 Sodium 136 mmol/L (136-145) 05/31/24 23:51 Potassium 4.7 mmol/L (3.5-5.1) 05/31/24 23:51 Chloride 104 mmol/L (98-107) 05/31/24 23:51 Carbon Dioxide 24 mmol/L (22-29) 05/31/24 23:51 Anion Gap 12.7 (5-19) 05/31/24 23:51 BUN 36 mg/dL (6-20) H 05/31/24 23:51 Creatinine 2.9 mg/dL (0.5-0.9) H 05/31/24 23:51 GFR Calculation 17.2 mL/min (90-130) L 05/31/24 23:51 Glucose 234 mg/dL (65-115) H 05/31/24 23:51 Calculated Osmolality 298 mOsm/kg (285-295) H 05/31/24 23:51 Calcium 8.7 mg/dL (8.5-10.5) 05/31/24 23:51 Total Bilirubin 0.2 mg/dL (0.15-1.2) 05/31/24 23:51 AST 24 U/L (0-32) 05/31/24 23:51 ALT 15 U/L (0-33) 05/31/24 23:51 Alkaline Phosphatase 39 U/L (35-105) 05/31/24 23:51 Total Protein 5.6 g/dL (6.6-8.7) L 05/31/24 23:51 Albumin 2.7 g/dL (3.5-5.2) L 05/31/24 23:51 Globulin 2.9 g/dL (1.3-4.6) 05/31/24 23:51 All radiology interpretation(s) finalized by discharge Critical Care Time 2 Critical Care Time: Critical Care Time: No Discharge Plan Discharge Patient Disposition: Home Clinical Impression: Pleural effusion, Anasarca Contusion of rib on right side Qualifiers: Encounter type: initial encounter Qualified Code(s): S20.211A - Contusion of right front wall of thorax, initial encounter Abdominal wall contusion Qualifiers: Encounter type: initial encounter Qualified Code(s): S30.1XXA - Contusion of abdominal wall, initial encounter Contusion of hip, right Qualifiers: Encounter type: initial encounter Qualified Code(s): S70.01XA - Contusion of right hip, initial encounter Anemia in chronic kidney disease Qualifiers: Chronic kidney disease stage: stage 4 (GFR 15-29) Qualified Code(s): N18.4 - Chronic kidney disease, stage 4 (severe) Condition: Stable Prescriptions: New hydrocodone-acetaminophen 5-325 mg tablet 1 tab PO Q4H PRN (Reason: pain) Qty: 10 0RF Discontinued prednisone 20 mg tablet 20 mg PO TID Qty: 15 0RF Rx Instructions: 1 p.o. 3 times daily x3 days, 1 p.o. twice daily x2 days, 1 p.o. daily x2 days No Action metoprolol tartrate 25 mg tablet 50 mg PO BID@0900,2100 Qty: 180 1RF hydralazine 25 mg tablet 25 mg PO TID Qty: 240 5RF azithromycin 250 mg tablet See Rx Instructions .ROUTE .COMPLEX Rx Instructions: TAKE 2 TABLETS BY MOUTH ON DAY ONE THEN TAKE 1 TABLET DAILY FOR 4 DAYS. potassium chloride 20 mEq tablet,ER particles/crystals See Rx Instructions .ROUTE .COMPLEX Rx Instructions: TAKE TWO TABLETS BY MOUTH IN THE MORNING and ONE IN THE EVENING. Take with food. nifedipine 60 mg tablet extended release 24hr 60 mg PO DAILY furosemide 20 mg tablet 20 mg PO BID Antacid Anti-Gas (ca carb-sim) 1,000-60 mg Tablet,Chewable 1 tab PO QID PRN (Reason: Indigestion) fenofibrate nanocrystallized 145 mg tablet 145 mg PO DAILY albuterol sulfate 90 mcg/actuation HFA aerosol inhaler 2 inh INHALATION Q4H PRN (Reason: shortness of breath or wheezing) Qty: 18 0RF insulin lispro 100 unit/mL solution See Rx Instructions .ROUTE .COMPLEX Rx Instructions: Inject 7 units subq with meals if bs is below 200 BG, above 200 inject 12 units. pioglitazone 30 mg Tablet 30 mg PO DAILY rosuvastatin 40 mg Tablet 40 mg PO DAILY aspirin 81 mg Capsule 81 mg PO DAILY Discharge Orders: Discharge ED (Routine); Ordered 06/01/24 Ordered By: Alfred Granados Referrals: Jimmy Antonio, SITE MONITOR [Primary Care Provider] - Discharge Diet: Usual diet Discharge Activity: Increase activity as tolerated Patient Instructions: Edema (ED), Hip Contusion (ED), Chest Contusion (ED), Opioid Safety, Pain Management Activity Restrictions/Additional Instructions: Take your medication as directed. Take your current blood pressure medicines as directed. Do not use ibuprofen or Aleve as they can make your kidney problems worse. Make sure you are eating plenty of protein and drinking plenty of fluids. Follow-up with your doctor early next week for recheck. Follow-up with your kidney doctor as scheduled. Avoid activities that could lead to other falls. Return to the emergency department with any worsening symptoms. Print Language: Tajik Coding Level of Care Code ED Internet Project Manager for Joe Gallagher
[2024-05-31 23:09] VITALS: BP 182/110; PULSE 93; RESP 16; O2SAT 94
[2024-05-31 23:24] VITALS: RESP 16; O2SAT 96
[2024-05-31] MEDS: ondansetron 2 mg/ML SDV 2 mL 4 MG IVP (23:24)
[2024-05-31] MEDS: fentaNYL 50 mcg/mL INJ 2mL 75 MCG IVP (23:24)
[2024-05-31 23:31] VITALS: BP 182/110; PULSE 91; RESP 16; O2SAT 94
[2024-05-31 23:58] LABS: Basophils # 0.1 10^3/uL (0.0-0.1); Basophils % 1.1 %; Eosinophils # 0.8 10^3/uL (0.0-0.8); Eosinophils % 14.5 %; Hematocrit 28.4 % (36-47); Lymphocytes # 1.1 10^3/uL (0.8-4.8); Lymphocytes % 20.6 %; Mean Corpuscular Hemoglobin 27.2 pg (27-33); Mean Corpuscular Volume 87.7 fl (85-98); Mean Platelet Volume 9.8 fL (7.4-10.4); Monocytes # 0.4 10^3/uL (0.2-0.9); Neutrophils # 2.96 10^3/uL (1.8-7.7); Neutrophils % 56.4 %; Nucleated Red Blood Cells % 0 %; Platelet Count 338 10^3/cmm (157-399); Red Blood Count 3.24 10^6/uL (3.85-5.65); Red Cell Distribution Width 14.1 % (12.1-15.1); White Blood Count 5.25 10^3/uL (3.29-11.43)
[2024-06-01] VITALS: BP 166/111; PULSE 89; RESP 16; O2SAT 99
[2024-06-01 00:15] LABS: Alanine Aminotransferase 15 U/L (0-33); Albumin Level 2.7 g/dL (3.5-5.2); Alkaline Phosphatase 39 U/L (35-105); Anion Gap 12.7 (5-19); Aspartate Amino Transferase 24 U/L (0-32); Blood Urea Nitrogen 36 mg/dL (6-20); Calcium 8.7 mg/dL (8.5-10.5); Carbon Dioxide 24 mmol/L (22-29); Chloride 104 mmol/L (98-107); Creatinine Clr Calc Pharmacy 26.3972; Globulin 2.9 g/dL (1.3-4.6); Glomerular Filtration Rate 17.2 mL/min (90-130); Glucose 234 mg/dL (65-115); Osmolality Calculated 298 mOsm/kg (285-295); Potassium 4.7 mmol/L (3.5-5.1); Sodium 136 mmol/L (136-145); Total Bilirubin 0.2 mg/dL (0.15-1.2); Total Protein 5.6 g/dL (6.6-8.7)
[2024-06-01 00:53] VITALS: BP 179/113; PULSE 86; O2SAT 93
== END 2024-06-01 00:46 | disposition home or self-care (01) ==
PROVIDERS: Emergency Provider Physician Assistant; PCP Nurse Practitioner
DX: J90 Pleural effusion, not elsewhere classified (principal); R60.1 Generalized edema; S20.211A Contusion of right front wall of thorax, initial encounter; S30.1XXA Contusion of abdominal wall, initial encounter; S70.01XA Contusion of right hip, initial encounter; E11.22 Type 2 diabetes mellitus with diabetic chronic kidney disease; I13.0 Hypertensive heart and chronic kidney disease with heart failure and stage 1 through stage 4 chronic kidney disease, or unspecified chronic kidney disease; N18.4 Chronic kidney disease, stage 4 (severe); I50.9 Heart failure, unspecified; W19.XXXA Unspecified fall, initial encounter
CPT/HCPCS: 36415; 71250; 74176; 80053; 85025; 96374; 96375; 99285; J2405; J3010

== ENCOUNTER 2024-06-07 15:37 | Inpatient (IN) | payer MEDICAID, SELFPAY ==
[2024-06-07] VITALS (7 sets, daily range): BP systolic 143–170; BP diastolic 66–95; PULSE 75–86; RESP 16–18; TEMP 36.3; O2SAT 94–98; BMI 32.3
--- NOTE | 2024-06-07 16:02 | ECG_ITS ---
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 Measurements Intervals [place] Rate: 75 P: 42 WI: 158 QRS: 12 QRSD: 102 T: 69 QT: 369 QTc: 412 Interpretive Statements SINUS RHYTHM Compared to ECG 05/09/2024 10:23:17 No significant changes Electronically Signed On 06-08-2024 18:01:22 GLUE MIXER by Srinivas Thomas M.D. [id number] [id number]
--- NOTE | 2024-06-07 18:49 | ECG_ITS ---
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 Measurements Intervals [place] Rate: 75 P: 23 MT: 159 QRS: 43 QRSD: 105 T: 2 QT: 368 QTc: 414 Interpretive Statements SINUS RHYTHM Compared to ECG 06/07/2024 16:02:04 No significant changes Electronically Signed On 06-08-2024 18:00:59 STATE INSPECTOR by Srinivas Thomas M.D. [email or web address]
--- NOTE | 2024-06-07 18:49 | XRR_ITS ---
PROCEDURE INFORMATION: Exam: XR Chest Exam date and time: 06/07/2024 7:01 PM Age: 49 years old Clinical indication: Shortness of breath; SOB; Restrictive airway disease TECHNIQUE: Imaging protocol: Radiologic exam of the chest. Views: 1 view. COMPARISON: [place] [id number] 05/31/2024 11:01 PM FINDINGS: Lungs: Underlying patchy bibasilar opacities due to atelectasis and or pneumonitis also appear unchanged. Pleural spaces: Moderate left and mild right pleural effusions noted as well as moderate pulmonary vascular congestion, similar to 05/31/2024 CT. Heart/Mediastinum: Borderline cardiomegaly. Bones/joints: Unremarkable. XR/XR chest 1V portable [id number] IMPRESSION: 1. Overall no significant interval change compared to 05/23/2024 CT. 2. Mild cardiomegaly, pulmonary vascular congestion and left greater than right pleural effusions suggestive of CHF/volume overload again noted. 3. Patchy underlying bibasilar opacities due to atelectasis with or without superimposed pneumonic consolidation appear unchanged.
--- NOTE | 2024-06-07 18:55 | W.ED.SOB ---
HPI - SOB/Dyspnea General: Chief Complaint: Shortness of Breath/Dyspnea Stated Complaint: pain w/ breathing Time Seen by Provider: 06/07/24 18:45 History of Present Illness: HPI Narrative: 49-year-old female with a history of chronic kidney disease, diabetes, obesity and congestive heart failure who presents to the emergency room with worsening lower extremity swelling, weight gain and shortness of breath. She gone to her clinic and apparently she was hypoxemic in the 80s there so she was sent to the emergency room. She is currently satting in the 90s on room air while she sitting up. She says she gets much more short of breath with exertion and with laying flat. No chest pain. No abdominal pain. No vomiting. Related Data Home Medications ?Medication ?Instructions ?Recorded ?Confirmed aspirin 81 mg capsule 81 mg PO DAILY 03/10/24 05/09/24 insulin lispro 100 unit/mL See Rx Instructions .Route .COMPLEX 03/10/24 05/09/24 subcutaneous solution pioglitazone 30 mg tablet 30 mg PO DAILY 03/10/24 05/09/24 rosuvastatin 40 mg tablet 40 mg PO DAILY 03/10/24 05/09/24 azithromycin 250 mg tablet See Rx Instructions .Route .COMPLEX 05/09/24 05/09/24 calcium carbonate 1,000 1 tab PO QID PRN Indigestion 05/09/24 05/09/24 mg-simethicone 60 mg chewable tablet (Antacid Anti-Gas (calcium carb-simeth)) fenofibrate nanocrystallized 145 145 mg PO DAILY 05/09/24 05/09/24 mg tablet furosemide 20 mg tablet 20 mg PO BID 05/09/24 05/09/24 nifedipine 60 mg tablet,extended 60 mg PO DAILY 05/09/24 05/09/24 release 24 hr potassium chloride 20 mEq See Rx Instructions .Route .COMPLEX 05/09/24 05/09/24 tablet,extended release(part/cryst) Previous Rx's ?Medication ?Instructions ?Recorded hydralazine 25 mg tablet 25 mg PO TID #240 tabs 04/04/24 metoprolol tartrate 25 mg tablet 50 mg (2 x 25 mg) PO BID@0900,2100 04/04/24 #180 tabs albuterol sulfate 90 mcg/actuation 2 inh inhalation Q4H PRN shortness 02/06/25 aerosol inhaler of breath or wheezing #18 grams hydrocodone 5 mg-acetaminophen 325 1 tab PO Q4H PRN pain #10 tabs 06/01/ mg tablet Allergies Allergy/AdvReac Type Severity Reaction Status Date / Time Iodinated Contrast Media Allergy ALGY-Hives Verified 06/07/24 15:59 morphine Allergy ALGY-Hives Verified 06/07/24 15:59 Review of Systems Narrative: Constitutional symptoms: Negative except as documented in HPI. Skin symptoms: Negative except as documented in HPI. Eye symptoms: Negative except as documented in HPI. ENMT symptoms: Negative except as documented in HPI. Respiratory symptoms: Negative except as documented in HPI. Cardiovascular symptoms: Negative except as documented in HPI. Gastrointestinal symptoms: Negative except as documented in HPI. Genitourinary symptoms: Negative except as documented in HPI. Musculoskeletal symptoms: Negative except as documented in HPI. Neurologic symptoms: Negative except as documented in HPI. Psychiatric symptoms: Negative except as documented in HPI. Endocrine symptoms: Negative except as documented in HPI. [facility] PFSH: Medical History T2DM (type 2 diabetes mellitus) Congestive heart failure section wound seroma, Hypertension Diabetes Family History Father CAD (coronary artery disease) Social History Smoking and tobacco/nicotine status: never used tobacco/nicotine Physical Exam Narrative: EXAM NARRATIVE: General: Alert, no acute distress. Skin: Warm, dry. Head: Normocephalic, atraumatic. Neck: Supple, trachea midline. Eye: Extraocular movements are intact. Ears, nose, mouth and throat: mucosa moist. Cardiovascular: Regular, Normal peripheral perfusion. 2+ pitting edema of the tibia bilaterally Respiratory: Lungs are clear to auscultation, respirations are non-labored, breath sounds are equal, Symmetrical chest wall expansion. Gastrointestinal: Soft, Nontender, Non distended Musculoskeletal: Normal ROM, no deformity. Neurological: Alert and oriented, No focal neurological deficit observed. Psychiatric: Cooperative, appropriate mood & affect. Course Vital Signs: Vital signs: Vital Signs Temperature 97.4 F L 06/07/24 15:40 Pulse Rate 79 06/07/24 20:05 Respiratory Rate 16 06/07/24 20:05 Blood Pressure 143/87 06/07/24 20:31 Pulse Oximetry 97 06/07/24 20:31 Oxygen Delivery Me thod Room Air 06/07/24 15:40 MDM - SOB/Dyspnea Medical Decision Making Differential diagnosis for patient with shortness of breath includes but is not limited to and based on the above HPI, review of systems and physical exam: Pneumonia. Bronchitis. Asthma or COPD with acute exacerbation. Acute coronary syndrome / PR. Pulmonary embolism. Anxiety. Congestive heart failure. Viral infections including influenza and Covid-19. Atrial fibrillation. Anxiety. Pleural effusion. Pneumothorax. Orders placed to evaluate differential diagnosis based on the above differential, HPI and physical exam EKG: Time 1602. Rate 75. Normal sinus rhythm, No ST-T changes, no ectopy, normal MT & QRS intervals, This was reviewed and interpreted by myself the ER physician at 1606 Chest x-ray: Cardiomegaly, pulmonary vascular congestion left greater than right pleural effusions that would suggest CHF volume overload. This was reviewed and interpreted by myself the emergency room physician. I also reviewed the radiology report. Lab Review: Laboratory results were reviewed and interpreted by myself the emergency room physician. No leukocytosis. Stable anemia. BUN and creatinine are stable at 35 and 2.9. Potassium slightly high at 5.4. proBNP is twice her usual at almost 10,000 I reviewed the patient's medical record. Reexamination: Patient remained stable. No increased work of breathing. No altered mental status. No focal motor deficits. Consultation: I spoke with Dr. Acosta who is on-call for the hospitalist service who agrees to admission. Assessment and plan: Congestive heart failure with acute exacerbation Hypoxemia Dyspnea Orthopnea. -80 mg IV Lasix in the emergency room. ?I discussed the patient with the hospitalist on-call who is admitting the patient. - Discussed findings and plan with patient. Answered any questions. - All laboratory values were reviewed and interpreted personally by myself, the ER physician - All imaging was reviewed and interpreted personally by myself, the ER physician. - Evaluation and treatment of this problem were appropriate in the emergency setting Lab Data 06/07/24 16:09 06/07/24 16:09 Labs/Radiology: Radiology Impressions Chest X-Ray 06/07/24 18:49 IMPRESSION: 1. Overall no significant interval change compared to 05/23/2024 CT. 2. Mild cardiomegaly, pulmonary vascular congestion and left greater than right pleural effusions suggestive of CHF/volume overload again noted. 3. Patchy underlying bibasilar opacities due to atelectasis with or without superimposed pneumonic consolidation appear unchanged. Laboratory Results WBC 5.38 10^3/uL (3.29-11.43) 06/07/24 16:09 RBC 3.22 10^6/uL (3.85-5.65) L 06/07/24 16:09 Hgb 8.70 g/dL (11.27-16.99) L 06/07/24 16:09 Hct 28.6 % (36-47) L 06/07/24 16:09 MCV 88.8 fl (85-98) 06/07/24 16:09 MCH 27.0 pg (27-33) 06/07/24 16:09 MCHC 30.4 g/dL (30-55) 06/07/24 16:09 RDW 13.9 % (12.1-15.1) 06/07/24 16:09 Plt Count 447 10^3/cmm (157-399) H 06/07/24 16:09 MPV 10.7 fL (7.4-10.4) H 06/07/24 16:09 Neut % (Auto) 56.3 % 06/07/24 16:09 Lymph % (Auto) 25.7 % 06/07/24 16:09 [place] % (Auto) 7.2 % 06/07/24 16:09 Eos % (Auto) 10.0 % 06/07/24 16:09 Baso % (Auto) 0.6 % 06/07/24 16:09 Neut # (Auto) 3.03 10^3/uL (1.8-7.7) 06/07/24 16:09 Lymph # (Auto) 1.4 10^3/uL (0.8-4.8) 06/07/24 16:09 [place] # (Auto) 0.4 10^3/uL (0.2-0.9) 06/07/24 16:09 Eos # (Auto) 0.5 10^3/uL (0.0-0.8) 06/07/24 16:09 Baso # (Auto) 0.0 10^3/uL (0.0-0.1) 06/07/24 16:09 Nucleated RBC % (auto) 0 % 06/07/24 16:09 Nucleated RBCs # 0.0 /100WBC 06/07/24 16:09 Sodium 140 mmol/L (136-145) 06/07/24 16:09 Potassium 5.4 mmol/L (3.5-5.1) H 06/07/24 16:09 Chloride 108 mmol/L (98-107) H 06/07/24 16:09 Carbon Dioxide 23 mmol/L (22-29) 06/07/24 16:09 Anion Gap 14.4 (5-19) 06/07/24 16:09 BUN 35 mg/dL (6-20) H 06/07/24 16:09 Creatinine 2.9 mg/dL (0.5-0.9) H 06/07/24 16:09 GFR Calculation 17.2 mL/min (90-130) L 06/07/24 16:09 Glucose 195 mg/dL (65-115) H 06/07/24 16:09 Calculated Osmolality 303 mOsm/kg (285-295) H 06/07/24 16:09 Lactic Acid 0.4 mmol/L (0.5-2.2) L 06/07/24 16:09 Calcium 8.3 mg/dL (8.5-10.5) L 06/07/24 16:09 Total Bilirubin 0.2 mg/dL (0.15-1.2) 06/07/24 16:09 AST 27 U/L (0-32) 06/07/24 16:09 ALT 18 U/L (0-33) 06/07/24 16:09 Alkaline Phosphatase 52 U/L (35-105) 06/07/24 16:09 Troponin T Baseline 243 ng/L (0-10) H* 06/07/24 16:09 Troponin T 120 Minute 228.7 ng/L (0-10) H 06/07/24 19:50 Delta Troponin T -14.3 ABS# (0-10) L 06/07/24 19:50 NT-Pro-B Natriuret Pep 9689 pg/mL (0-125) H 06/07/24 16:09 Total Protein 4.8 g/dL (6.6-8.7) L 06/07/24 16:09 Albumin 2.6 g/dL (3.5-5.2) L 06/07/24 16:09 Globulin 2.2 g/dL (1.3-4.6) 06/07/24 16:09 All radiology interpretation(s) finalized by discharge Discharge Plan Discharge Patient Disposition: Placed in Observation Clinical Impression: Acute exacerbation of congestive heart failure, Chronic kidney disease, Dyspnea, Orthopnea, Hypoxemia Coding Level of Care Code ED Equipment Planner for Joe Gallagher
[2024-06-07 18:56] LABS: Basophils % 0.6 %; Eosinophils # 0.5 10^3/uL (0.0-0.8); Hematocrit 28.6 % (36-47); Lymphocytes # 1.4 10^3/uL (0.8-4.8); Lymphocytes % 25.7 %; Mean Corpuscular HGB Conc 30.4 g/dL (30-55); Mean Corpuscular Volume 88.8 fl (85-98); Mean Platelet Volume 10.7 fL (7.4-10.4); Monocytes # 0.4 10^3/uL (0.2-0.9); Monocytes % 7.2 %; Neutrophils # 3.03 10^3/uL (1.8-7.7); Neutrophils % 56.3 %; Nucleated Red Blood Cells % 0 %; Platelet Count 447 10^3/cmm (157-399); Red Blood Count 3.22 10^6/uL (3.85-5.65); Red Cell Distribution Width 13.9 % (12.1-15.1); White Blood Count 5.38 10^3/uL (3.29-11.43)
[2024-06-07 19:05] LABS: Lactic Sepsis W/Reflex 0.4 mmol/L (0.5-2.2)
[2024-06-07 19:11] LABS: Alanine Aminotransferase 18 U/L (0-33); Albumin Level 2.6 g/dL (3.5-5.2); Alkaline Phosphatase 52 U/L (35-105); Anion Gap 14.4 (5-19); Aspartate Amino Transferase 27 U/L (0-32); Blood Urea Nitrogen 35 mg/dL (6-20); Calcium 8.3 mg/dL (8.5-10.5); Carbon Dioxide 23 mmol/L (22-29); Chloride 108 mmol/L (98-107); Creatinine Clr Calc Pharmacy 26.3307; Globulin 2.2 g/dL (1.3-4.6); Glomerular Filtration Rate 17.2 mL/min (90-130); Glucose 195 mg/dL (65-115); Osmolality Calculated 303 mOsm/kg (285-295); Potassium 5.4 mmol/L (3.5-5.1); Sodium 140 mmol/L (136-145); Total Bilirubin 0.2 mg/dL (0.15-1.2); Total Protein 4.8 g/dL (6.6-8.7)
[2024-06-07 19:13] LABS: Troponin(5th) Baseline 243 ng/L (0-10)
[2024-06-07 19:17] LABS: NT Pro B Type Natriuretic Pept 9689 pg/mL (0-125)
[2024-06-07] MEDS: FUROsemide 10 mg/mL SDV 10mL 80 MG IVP (20:04)
[2024-06-07 20:23] LABS: Troponin 5 2HR Delta -14.3 ABS# (0-10)
[2024-06-07 20:24] LABS: Troponin 5 2HR 228.7 ng/L (0-10)
--- NOTE | 2024-06-07 21:00 | ECG_ITS ---
[facility] Date: 2024-06[facility]07 Pat Name: Mellisa Matthews Department: Room: Gender: Female Licensed Nursing Assistant: : 1975 Requested By: Margaret Barton Order Number: [id number] Gold MD: Srinivas Thomas M.D. Measurements Intervals [place] Rate: 84 P: 21 NC: 159 QRS: 45 QRSD: 102 T: -3 QT: 352 QTc: 417 Interpretive Statements SINUS RHYTHM Compared to ECG 06/07/2024 18:52:42 No significant changes Electronically Signed On 06-08-2024 19:29:33 CASE ADVOCATE by Srinivas Thomas M.D. [id number]
--- NOTE | 2024-06-07 21:31 | PM.HP ---
Providers/Chief Complaint Primary Care Provider: SHELLEY Mackay Chief Complaint: pain w/ breathing History of Present Illness Mellisa Matthews is a 49 year old female with history of diastolic CHF, does not use any oxygen at home, lives with her significant other, presenting with chief complaint orthopnea PND shortness of breath and hypoxia. Patient was desaturating in low 80s on room air, she was put on couple of liters by the EMS however in the ER she is on room air saturating 95%. She has significant signs of anasarca, not endorsing fever chest pain nausea vomiting diarrhea or chest pain. Patient is compliant with her medications. Follows up with Dr. Hamilton nephrology for chronic kidney disease. Her baseline troponin seems to be around 100 as per the records. EKG without ischemic or infarctive changes, troponin trending down however still high no active chest pain, hemodynamically stable Currently on room air She is being admitted for management of anasarca and possibly needing oxygen at time of discharge. Patient does endorse getting sleep study done in the past, she did not qualify for oxygen Review of Systems Const: Denies: fever(s) Eyes: Denies: change in vision ENMT: Denies: throat pain Card: Reports: swelling of feet/ankles; Denies: chest pain Resp: Reports: dyspnea GI: Reports: nausea Medications/Allergies Home Medications ?Medication ?Instructions ?Recorded ?Confirmed ?Last Taken ?Type aspirin 81 mg capsule 81 mg PO DAILY 03/10/24 05/09/24 05/09/24 History insulin lispro 100 unit/mL See Rx Instructions .Route .COMPLEX 03/10/24 05/09/24 05/09/24 History subcutaneous solution pioglitazone 30 mg tablet 30 mg PO DAILY 03/10/24 05/09/24 05/09/24 History rosuvastatin 40 mg tablet 40 mg PO DAILY 03/10/24 05/09/24 03/09/24 History hydralazine 25 mg tablet 25 mg PO TID #240 tabs 04/04/24 05/09/24 05/08/24 Rx metoprolol tartrate 25 mg tablet 50 mg (2 x 25 mg) PO BID@0900,2100 04/04/24 05/09/24 05/09/24 Rx #180 tabs albuterol sulfate 90 mcg/actuation 2 inh inhalation Q4H PRN shortness 05/09/24 Unknown Rx aerosol inhaler of breath or wheezing #18 grams azithromycin 250 mg tablet See Rx Instructions .Route .COMPLEX 05/09/24 05/09/24 Unknown History calcium carbonate 1,000 1 tab PO QID PRN Indigestion 05/09/24 05/09/24 Unknown History mg-simethicone 60 mg chewable tablet (Antacid Anti-Gas (calcium carb-simeth)) fenofibrate nanocrystallized 145 145 mg PO DAILY 05/09/24 05/09/24 05/09/24 History mg tablet furosemide 20 mg tablet 20 mg PO BID 05/09/24 05/09/24 05/09/24 History nifedipine 60 mg tablet,extended 60 mg PO DAILY 05/09/24 05/09/24 05/09/24 History release 24 hr potassium chloride 20 mEq See Rx Instructions .Route .COMPLEX 05/09/24 05/09/24 05/09/24 History tablet,extended release(part/cryst) hydrocodone 5 mg-acetaminophen 325 1 tab PO Q4H PRN pain #10 tabs 06/01/24 Unknown Rx mg tablet Allergies Allergy/AdvReac Type Severity Reaction Status Date / Time Iodinated Contrast Media Allergy ALGY-Hives Verified 06/07/24 15:59 morphine Allergy ALGY-Hives Verified 06/07/24 15:59 PFSH Acute PFSH: Medical History T2DM (type 2 diabetes mellitus) Congestive heart failure section wound seroma, Hypertension Diabetes Family History Father CAD (coronary artery disease) Social History Smoking and tobacco/nicotine status: never used tobacco/nicotine Vitals/I&O/Wt Last Vital Signs Temp 97.4 F L 06/07/24 15:40 Pulse 79 06/07/24 20:05 Resp 16 06/07/24 20:05 BP 143/87 06/07/24 20:31 Pulse Ox 97 06/07/24 20:31 O2 Del Method Room Air 06/07/24 15:40 06/07/24 06/07/24 06/07/24 06:59 14:59 22:59 Intake Total 0 / 0 Balance 0 / 0 Weight last 48 hrs Weight 90.718 kg Physical Exam Narrative: Anasarca Semi-Bishop position Currently on room air saturating 95% GCS 15 Nonfocal neuroexam Endorsing to 3+ edema extending all the way up to her thighs and abdominal wall Bilateral bedside with rhonchi No active chest pain or respiratory distress Pleasant and cooperative AOx4 Appears stated age Data 06/07/24 16:09 06/07/24 16:09 A&P Assessment and plan (1) Hypoxia: (2) Pleural effusion: (3) Dyspnea: (4) Anasarca: (5) Elevated troponin: (6) Acute exacerbation of congestive heart failure: (7) Benign hypertension: Plan Acute diastolic CHF decompensation Possible dietary indiscretion , Patient compliant with her medication No previous history of stents or PCI Grade 2 diastolic dysfunction with preserve ejection fraction Currently in hypervolemic state with anasarca Start IV diuresis Intermittent hypoxia Endorsing orthopnea, PND, typical signs of congestive heart failure No previous history of sleep apnea Currently on room air saturating 95% Will need oxygen evaluation before discharge Has pleural effusion as well which are chronic in nature She may benefit from Bumex instead of Lasix Chronic kidney disease, hypertension Creatinine around baseline Follows up with nephrology On multiple antihypertensive regimen which I would resume for now currently normotensive Hyperkalemia: Hold potassium supplementation Elevated troponin: No active chest pain, troponin trending down: Demand ischemia with underlying chronic kidney disease Full code Cardiac consistent carb diet DVT prophylaxis: Heparin PDMP PDMP Reviewed: Not Reviewed Attestations Medical Necessity Statement*: Anticipating discharge within 48 hours will need office evaluation before discharge Diagnoses Hypoxia R09.02 Pleural effusion J90 Dyspnea R06.00 Anasarca R60.1 Elevated troponin R79.89 Acute exacerbation of congestive heart failure I50.9 Benign hypertension I10
[2024-06-07] MEDS: heparin 5,000 unit/mL INJ 1 mL 5000 UNIT SUBCUT (23:45)
[2024-06-08] VITALS (9 sets, daily range): BP systolic 142–173; BP diastolic 76–100; PULSE 74–86; RESP 16–18; TEMP 36.5–36.8; O2SAT 91–98; BMI 32.3
--- NOTE | 2024-06-08 01:58 | ECG_ITS ---
[facility] Date: 2024-[facility]08 Pat Name: Mellisa Matthews Department: Room: 279 Gender: Female Gullet Slitter: : 1975 Requested By: Margaret Barton Order Number: [id number] Gold MD: Srinivas Thomas M.D. Measurements Intervals [place] Rate: 86 P: 60 [place]: 170 QRS: 28 QRSD: 107 T: 66 QT: 348 QTc: 418 Interpretive Statements SINUS RHYTHM Compared to ECG 06/07/2024 21:00:59 No significant changes Electronically Signed On 06-08-2024 19:27:19 UPHOLSTERY TECHNICIAN by Srinivas Thomas M.D. [id number] [id number]
[2024-06-08 02:03] LABS: Troponin 5 6HR 230.4 ng/L (0-10); Troponin 5 6HR Delta -12.6 ng/L (0-12)
[2024-06-08] MEDS: acetaminophen 500 mg Tablet PO (03:28)
[2024-06-08 06:27] LABS: Basophils # 0.1 10^3/uL (0.0-0.1); Basophils % 1.2 %; Eosinophils # 0.6 10^3/uL (0.0-0.8); Hematocrit 26.6 % (36-47); Lymphocytes # 1.6 10^3/uL (0.8-4.8); Lymphocytes % 29.9 %; Mean Corpuscular HGB Conc 31.6 g/dL (30-55); Mean Corpuscular Hemoglobin 27.6 pg (27-33); Mean Corpuscular Volume 87.5 fl (85-98); Mean Platelet Volume 9.7 fL (7.4-10.4); Monocytes # 0.5 10^3/uL (0.2-0.9); Monocytes % 9.1 %; Neutrophils % 48.2 %; Nucleated Red Blood Cells % 0 %; Platelet Count 397 10^3/cmm (157-399); Red Blood Count 3.04 10^6/uL (3.85-5.65); Red Cell Distribution Width 13.8 % (12.1-15.1); White Blood Count 5.18 10^3/uL (3.29-11.43)
[2024-06-08 06:50] LABS: Anion Gap 13.4 (5-19); Blood Urea Nitrogen 34 mg/dL (6-20); Calcium 8.7 mg/dL (8.5-10.5); Carbon Dioxide 23 mmol/L (22-29); Chloride 106 mmol/L (98-107); Glomerular Filtration Rate 16.5 mL/min (90-130); Glucose 157 mg/dL (65-115); Magnesium 2.1 mg/dL (1.7-2.3); Osmolality Calculated 297 mOsm/kg (285-295); Potassium 4.4 mmol/L (3.5-5.1); Sodium 138 mmol/L (136-145)
[2024-06-08 06:51] LABS: Creatinine Clr Calc Pharmacy 25.4652
[2024-06-08 07:54] LABS: Glucose Point of Care 139 mg/dL (70-110)
[2024-06-08] MEDS: NIFEdipine ER (24 hr) 30 mg Tablet 60 MG PO (08:53)
[2024-06-08] MEDS: hyDRALAzine 25 mg Tablet PO ×2 (08:54→16:22)
[2024-06-08] MEDS: aspirin 81 mg EC Tablet PO (08:54)
[2024-06-08] MEDS: bumetanide 0.25 mg/mL SDV 10 mL 2 MG IVP ×2 (08:54→21:15)
[2024-06-08] MEDS: sennosides-docusate Tablet 1 TAB PO (08:54)
[2024-06-08] MEDS: metoprolol tartrate 25 mg Tablet 50 MG PO ×2 (08:58→21:15)
[2024-06-08] MEDS: ipratropium-albuterol 3 mL Neb INHALATION (09:47)
--- NOTE | 2024-06-08 10:49 | PC.CHAP ---
Pastoral Care Encounter/Spiritual Assessment Type of Contact [] Declined logistics system engineer visit [] Patient/Family/Request visit [] Outpatient visit [] Follow-up visit [] Physician referral [] Code/Alert [] Routine visit [] Staff referral [] Actively dying [X] Patient sleeping [] Family support [] [] Out of room [] Palliative care [] [] Receiving care in room [] Pre-surgical visit [] Trauma [] Long length of stay [] ICU visit [] Other: Relational/Emotional Strength [] Patient feels connected with others/family/visitors/staff [] Distress [] Loneliness/isolation [] Abandonment Spirituality of Patient [] Person of Anuradha [] Attends Mosque of their Anuradha [] Believes in Prayer [] Reads Bible or Scientologist materials [] There are Spiritual issues to be addressed Spa Attendant Interventions [] Prayer [] Active listening [] Non-anxious presence [] Spiritual/emotional support [] Crisis/trauma care [] Spiritual counseling [] Bereavement support [] Provided bereavement packet [] Provided Bible/devotional materials [] Provided toy/stuffed animal, coloring book to patient or family member [] Provided Communion [] Anointing/Neligh [] Salvation [] Completed spiritual assessment [] Other: Impact on Illness or Injury [] Angry [] Fearful [] Anxious [] Often cries [] Exhaustion [] Unable to work [] Unable to attend islam [] Unable to walk/stand [] Unable to read [] Unable to drive [] Unable to eat/drink [] Unable to sleep [] Unable to be with family [] Patient intubated [] Other: Summary Time spent with patient
[2024-06-08 12:19] LABS: Glucose Point of Care 205 mg/dL (70-110)
[2024-06-08] MEDS: insulin lispro 100 unit/1 mL SUBCUT ×2 (13:14→21:15)
[2024-06-08] MEDS: heparin 5,000 unit/mL INJ 1 mL 5000 UNIT SUBCUT ×2 (13:15→23:10)
[2024-06-08 15:16] LABS: Glucose Point of Care 88 mg/dL (70-110)
--- NOTE | 2024-06-08 16:32 | P.PN_ITS ---
Subjective 2 Subjective: Overnight labs and H&P reviewed. Blood pressure continues to be uncontrolled with systolics ranging 1 60-1 70. Vitals/I&O/Wt Last Vital Signs Temp 98.3 F 06/08/24 13:42 Pulse 74 06/08/24 13:42 Resp 16 06/08/24 13:42 BP 167/84 06/08/24 13:42 Pulse Ox 94 06/08/24 13:42 O2 Del Method Nasal Cannula 06/08/24 13:42 O2 Flow Rate 1 06/08/24 09:50 06/08/24 06/08/24 06/08/24 06:59 14:59 22:59 Intake Total 360 / 360 Balance 360 / 360 Weight last 48 hrs Weight 90.804 kg Weight 90.718 kg Weight 90.718 kg Physical Exam 2 Narrative: General: No acute distress, AO x3 HEENT: PERRLA, pupils bilaterally equal and reactive, pallors not present Chest: Normal vesicular breath sounds, no added sounds, equal good air entry bilaterally CVS: S1-S2 regular, no murmurs, no tachycardia, no gallops, no rubs Abdomen: Soft, nontender, no organomegaly, bowel sounds present Neuro: No focal deficits, no facial deformity, AO x3, power 5/5 in all limbs Extremities: Bilateral lower extremity pitting edema. Patient has a small scratch over the right second intermetatarsal space. No signs of cellulitis currently. Data 06/08/24 06:11 06/08/24 06:11 A&P Assessment and plan (1) Hypoxia: (2) Pleural effusion: (3) Dyspnea: (4) Anasarca: (5) Elevated troponin: (6) Acute exacerbation of congestive heart failure: (7) Benign hypertension: Plan Acute diastolic CHF decompensation Possible dietary indiscretion , Patient compliant with her medication No previous history of stents or PCI Grade 2 diastolic dysfunction with preserve ejection fraction Currently in hypervolemic state with anasarca Start IV diuresis Intermittent hypoxia Endorsing orthopnea, PND, typical signs of congestive heart failure No previous history of sleep apnea Currently on room air saturating 95% Will need oxygen evaluation before discharge Has pleural effusion as well which are chronic in nature She may benefit from Bumex instead of Lasix Chronic kidney disease, hypertension Creatinine around baseline Follows up with nephrology On multiple antihypertensive regimen which I would resume for now currently normotensive Hyperkalemia: Hold potassium supplementation Elevated troponin: No active chest pain, troponin trending down: Demand ischemia with underlying chronic kidney disease Full code Cardiac consistent carb diet DVT prophylaxis: Heparin June 08, 2024 Overnight labs and H&P reviewed. Continue Bumex 2 mg IV every 12 hours with close monitoring of renal function. On her previous admission here, she was noted to have nearly 13 g of proteinuria with concern for nephrotic syndrome. She was referred to see Dr. Sudha Hamilton from nephrology in [place]. Reportedly she was then referred to [place]. Patient is uncertain if this was because she needed a kidney biopsy. She states that getting to [place] is not an option for her. She therefore established care with nephrology at [facility] in [place]. However he is yet to see the physician, upcoming appointment at the end of June. Blood pressure is uncontrolled today. Hydralazine is currently at 25 mg 3 times a day, will increase dose to 50 mg 3 times daily. Continue nifedipine 60 mg daily, metoprolol 50 twice daily. Should blood pressure remain uncontrolled with up titration of hydralazine, will aim to increase nifedipine next. Anemia likely related to chronic kidney disease. Check iron panel. Changed to inpatient admission PDMP PDMP Reviewed: Not Reviewed Attestations 2 Medical Necessity Statement*: Continued need of IV diuresis,titrate BP meds Coding Level of Care Code Acute Code for Chg Fwd Diagnoses Hypoxia R09.02 Pleural effusion J90 Dyspnea R06.00 Anasarca R60.1 Elevated troponin R79.89 Acute exacerbation of congestive heart failure I50.9 Benign hypertension I10
[2024-06-08 16:48] LABS: Potassium 4.7 mmol/L (3.5-5.1)
[2024-06-08 17:11] LABS: Glucose Point of Care 86 mg/dL (70-110)
[2024-06-08 20:48] LABS: Glucose Point of Care 200 mg/dL (70-110)
[2024-06-08] MEDS: hyDRALAzine 25 mg Tablet 50 MG PO (21:15)
--- NOTE | 2024-06-08 23:45 | PC.NURSE ---
Patient notified this nurse that Dexcom read a blood glucose of 66.
[2024-06-09] VITALS (9 sets, daily range): BP systolic 127–179; BP diastolic 66–93; PULSE 71–80; RESP 15–16; TEMP 36.6–36.9; O2SAT 93–98
--- NOTE | 2024-06-09 00:34 | PC.NURSE ---
Patient notified this nurse that Dexcom read blood glucose of 66 at 2345 on 06/08/24. Patient alert and oriented at this time and was given orange juice. Blood glucose was rechecked by patient via personal Dexcom at 0030 and read 87. Patient is currently on a med dose regimen. This nurse was reported to have an episode during the day time as well. This nurse to pass on in report of hypoglycemia episodes throughout the night.
--- NOTE | 2024-06-09 04:32 | PC.NURSE ---
PHYSICIAN NOTIFICATION: Patient's blood pressure is 179/93, heart rate of 73. Physician notified of vital signs and gave this nurse orders to give 0900 dose of Nifedipine now. Plan of care ongoing.
[2024-06-09] MEDS: NIFEdipine ER (24 hr) 30 mg Tablet 60 MG PO (04:34)
[2024-06-09 04:52] LABS: Basophils # 0.1 10^3/uL (0.0-0.1); Basophils % 0.9 %; Eosinophils # 0.9 10^3/uL (0.0-0.8); Eosinophils % 12.5 %; Hematocrit 27.9 % (36-47); Lymphocytes # 1.9 10^3/uL (0.8-4.8); Lymphocytes % 28.3 %; Mean Corpuscular HGB Conc 30.8 g/dL (30-55); Mean Corpuscular Hemoglobin 26.9 pg (27-33); Mean Corpuscular Volume 87.2 fl (85-98); Mean Platelet Volume 10.6 fL (7.4-10.4); Monocytes # 0.6 10^3/uL (0.2-0.9); Monocytes % 8.7 %; Neutrophils # 3.35 10^3/uL (1.8-7.7); Neutrophils % 49.5 %; Nucleated Red Blood Cells % 0 %; Platelet Count 403 10^3/cmm (157-399); Red Cell Distribution Width 13.6 % (12.1-15.1); White Blood Count 6.78 10^3/uL (3.29-11.43)
[2024-06-09 05:12] LABS: Alanine Aminotransferase 16 U/L (0-33); Albumin Level 2.4 g/dL (3.5-5.2); Alkaline Phosphatase 57 U/L (35-105); Anion Gap 14.7 (5-19); Aspartate Amino Transferase 22 U/L (0-32); Blood Urea Nitrogen 35 mg/dL (6-20); Calcium 8.5 mg/dL (8.5-10.5); Carbon Dioxide 24 mmol/L (22-29); Chloride 103 mmol/L (98-107); Creatinine Clr Calc Pharmacy 28.2946; Glomerular Filtration Rate 18.7 mL/min (90-130); Glucose 111 mg/dL (65-115); Osmolality Calculated 293 mOsm/kg (285-295); Potassium 4.7 mmol/L (3.5-5.1); Sodium 137 mmol/L (136-145); Total Bilirubin 0.2 mg/dL (0.15-1.2); Total Protein 5.4 g/dL (6.6-8.7)
[2024-06-09 06:33] LABS: Glucose Point of Care 110 mg/dL (70-110)
[2024-06-09] MEDS: ipratropium-albuterol 3 mL Neb INHALATION (09:10)
[2024-06-09] MEDS: hyDRALAzine 25 mg Tablet 50 MG PO ×3 (09:15→21:11)
[2024-06-09] MEDS: bumetanide 0.25 mg/mL SDV 10 mL 2 MG IVP ×2 (09:16→21:11)
[2024-06-09] MEDS: sennosides-docusate Tablet 1 TAB PO (09:16)
[2024-06-09] MEDS: aspirin 81 mg EC Tablet PO (09:16)
[2024-06-09] MEDS: metoprolol tartrate 25 mg Tablet 50 MG PO ×2 (09:18→21:11)
[2024-06-09 11:26] LABS: Glucose Point of Care 211 mg/dL (70-110)
[2024-06-09] MEDS: heparin 5,000 unit/mL INJ 1 mL 5000 UNIT SUBCUT ×2 (12:10→23:24)
[2024-06-09 16:37] LABS: Glucose Point of Care 218 mg/dL (70-110)
--- NOTE | 2024-06-09 17:57 | PM.PN ---
Subjective Subjective: Patient states dyspnea proved at rest, however states she is unable to lay flat. Still has significant orthopnea.Blood pressure is better controlled today. Medications: Reviewed: Yes Vitals/I&O/Wt Last Vital Signs Temp 98.0 F 06/09/24 16:00 Pulse 75 06/09/24 16:00 Resp 16 06/09/24 16:00 BP 152/66 06/09/24 16:00 Pulse Ox 96 06/09/24 16:00 O2 Del Method Nasal Cannula 06/09/24 16:00 O2 Flow Rate 1 06/09/24 09:13 06/09/24 06/09/24 06/09/24 07:59 14:59 22:59 Intake Total 240 / 1560 360 / 360 Balance 240 / 1560 360 / 360 Weight last 48 hrs Weight 90.804 kg Weight 90.718 kg Physical Exam Narrative: General: No acute distress, AO x3 HEENT: PERRLA, pupils bilaterally equal and reactive, pallors not present Chest: Normal vesicular breath sounds, no added sounds, equal good air entry bilaterally CVS: S1-S2 regular, no murmurs, no tachycardia, no gallops, no rubs Abdomen: Soft, nontender, no organomegaly, bowel sounds present Neuro: No focal deficits, no facial deformity, AO x3, power 5/5 in all limbs Extremities: Bilateral lower extremity pitting edema. Patient has a small scratch over the right second intermetatarsal space. No signs of cellulitis currently. Data 06/09/24 04:33 06/09/24 04:33 A&P Assessment and plan (1) Hypoxia: (2) Pleural effusion: (3) Dyspnea: (4) Anasarca: (5) Elevated troponin: (6) Acute exacerbation of congestive heart failure: (7) Benign hypertension: Plan Acute diastolic CHF decompensation Possible dietary indiscretion , Patient compliant with her medication No previous history of stents or PCI Grade 2 diastolic dysfunction with preserve ejection fraction Currently in hypervolemic state with anasarca Start IV diuresis Intermittent hypoxia Endorsing orthopnea, PND, typical signs of congestive heart failure No previous history of sleep apnea Currently on room air saturating 95% Will need oxygen evaluation before discharge Has pleural effusion as well which are chronic in nature She may benefit from Bumex instead of Lasix Chronic kidney disease, hypertension Creatinine around baseline Follows up with nephrology On multiple antihypertensive regimen which I would resume for now currently normotensive Hyperkalemia: Hold potassium supplementation Elevated troponin: No active chest pain, troponin trending down: Demand ischemia with underlying chronic kidney disease Full code Cardiac consistent carb diet DVT prophylaxis: Heparin June 08, 2024 Overnight labs and H&P reviewed. Continue Bumex 2 mg IV every 12 hours with close monitoring of renal function. On her previous admission here, she was noted to have nearly 13 g of proteinuria with concern for nephrotic syndrome. She was referred to see Dr. Sudha Hamilton from nephrology in [place]. Reportedly she was then referred to [place]. Patient is uncertain if this was because she needed a kidney biopsy. She states that getting to [place] is not an option for her. She therefore established care with nephrology at [facility] in [place]. However he is yet to see the physician, upcoming appointment at the end of June. Blood pressure is uncontrolled today. Hydralazine is currently at 25 mg 3 times a day, will increase dose to 50 mg 3 times daily. Continue nifedipine 60 mg daily, metoprolol 50 twice daily. Should blood pressure remain uncontrolled with up titration of hydralazine, will aim to increase nifedipine next. Anemia likely related to chronic kidney disease. Check iron panel. Changed to inpatient admission June 09, 2024 Continue Bumex 2 mg IV every 12 hours. Lower extremity edema slightly improved. Patient is stating dyspnea at rest is better, however unable to lay flat. Needs 1.5lpm supplemental 02. Kidney function is stable with creatinine at 2.7. Urine output is not accurately charted. Continue IV diuresis today with aim to transition to oral diuresis over the next 24 hours. Remains chest pain-free. PDMP PDMP Reviewed: Not Reviewed Attestations Medical Necessity Statement*: continued need for iv diuresis Coding Level of Care Code Acute Code for Chg Fwd Diagnoses Hypoxia R09.02 Pleural effusion J90 Dyspnea R06.00 Anasarca R60.1 Elevated troponin R79.89 Acute exacerbation of congestive heart failure I50.9 Benign hypertension I10
[2024-06-09 20:34] LABS: Glucose Point of Care 266 mg/dL (70-110)
[2024-06-09] MEDS: insulin lispro 100 unit/1 mL SUBCUT (21:11)
[2024-06-10] VITALS (8 sets, daily range): BP systolic 134–174; BP diastolic 62–94; PULSE 66–77; RESP 16–18; TEMP 36.4–36.8; O2SAT 92–97
[2024-06-10 03:11] LABS: Basophils % 0.7 %; Eosinophils % 16.5 %; Hematocrit 26.7 % (36-47); Lymphocytes # 1.4 10^3/uL (0.8-4.8); Mean Corpuscular HGB Conc 31.1 g/dL (30-55); Mean Corpuscular Hemoglobin 26.7 pg (27-33); Mean Corpuscular Volume 85.9 fl (85-98); Mean Platelet Volume 9.8 fL (7.4-10.4); Monocytes # 0.6 10^3/uL (0.2-0.9); Monocytes % 10.5 %; Neutrophils # 2.89 10^3/uL (1.8-7.7); Nucleated Red Blood Cells % 0 %; Platelet Count 376 10^3/cmm (157-399); Red Blood Count 3.11 10^6/uL (3.85-5.65); Red Cell Distribution Width 13.9 % (12.1-15.1); White Blood Count 6.01 10^3/uL (3.29-11.43)
[2024-06-10 03:31] LABS: Alanine Aminotransferase 13 U/L (0-33); Albumin Level 2.3 g/dL (3.5-5.2); Alkaline Phosphatase 58 U/L (35-105); Anion Gap 11.7 (5-19); Aspartate Amino Transferase 18 U/L (0-32); Blood Urea Nitrogen 40 mg/dL (6-20); Calcium 8.6 mg/dL (8.5-10.5); Carbon Dioxide 28 mmol/L (22-29); Chloride 103 mmol/L (98-107); Creatinine Clr Calc Pharmacy 25.4652; Ferritin 119 ng/mL (15-150); Globulin 2.6 g/dL (1.3-4.6); Glomerular Filtration Rate 16.5 mL/min (90-130); Glucose 126 mg/dL (65-115); Osmolality Calculated 297 mOsm/kg (285-295); Potassium 4.7 mmol/L (3.5-5.1); Sodium 138 mmol/L (136-145); Total Bilirubin 0.2 mg/dL (0.15-1.2); Total Protein 4.9 g/dL (6.6-8.7)
[2024-06-10 03:44] LABS: Iron 47 ug/dL (37-145); Percent Saturation 16.9 % (20-50); Total Iron Binding Capacity 277 mcg/dl; Transferrin 242 mg/dL (200-360); Unsaturated Iron Binding 230 ug/dL (112-347)
[2024-06-10 03:46] LABS: Vitamin B12 386 pg/mL (232-1245)
[2024-06-10 04:20] LABS: Folate Level 4.9 ng/mL (4.8-37.3)
[2024-06-10 06:23] LABS: Glucose Point of Care 157 mg/dL (70-110)
[2024-06-10] MEDS: aspirin 81 mg EC Tablet PO (09:19)
[2024-06-10] MEDS: NIFEdipine ER (24 hr) 30 mg Tablet 60 MG PO (09:19)
[2024-06-10] MEDS: sennosides-docusate Tablet 1 TAB PO (09:19)
[2024-06-10] MEDS: hyDRALAzine 25 mg Tablet 50 MG PO ×3 (09:19→21:26)
[2024-06-10] MEDS: bumetanide 0.25 mg/mL SDV 10 mL 2 MG IVP ×2 (09:20→21:25)
[2024-06-10] MEDS: insulin lispro 100 unit/1 mL SUBCUT ×3 (09:20→21:26)
[2024-06-10] MEDS: metoprolol tartrate 25 mg Tablet 50 MG PO ×2 (09:26→21:26)
[2024-06-10 11:03] LABS: Glucose Point of Care 146 mg/dL (70-110)
[2024-06-10] MEDS: ipratropium-albuterol 3 mL Neb INHALATION (11:38)
--- NOTE | 2024-06-10 12:14 | PC.NURSE ---
Notified Dr. Parish patients blood sugar by our accucheck was 147. When going in to give patient 2 units, patients dexcom reading 93. Dr. Parish stated to skip this dose.
[2024-06-10] MEDS: heparin 5,000 unit/mL INJ 1 mL 5000 UNIT SUBCUT (12:16)
--- NOTE | 2024-06-10 12:45 | P.PN_ITS ---
Subjective 2 Subjective: Seen this morning. Patient states she gets short of breath when she walks to the bathroom or tries to exert herself. At this time she is on 2 L nasal cannula however she becomes very short of breath. Urine output has not been charted. Patient is on Bumex 2 mg every 12 hours. Creatinine 3.0 today. Vitals/I&O/Wt Last Vital Signs Temp 97.6 F 06/10/24 11:12 Pulse 75 06/10/24 11:12 Resp 16 06/10/24 11:12 BP 153/78 06/10/24 11:12 Pulse Ox 97 06/10/24 11:12 O2 Del Method Nasal Cannula 06/10/24 11:12 O2 Flow Rate 1 06/10/24 11:12 06/09/24 06/10/24 06/10/24 22:59 06:59 14:59 Intake Total 480 / 840 480 / 1320 480 / 480 Balance 480 / 840 480 / 1320 480 / 480 Physical Exam 2 Narrative: General: No acute distress, AO x3 HEENT: PERRLA, pupils bilaterally equal and reactive, pallors not present Chest: Normal vesicular breath sounds, no added sounds, equal good air entry bilaterally CVS: S1-S2 regular, no murmurs, no tachycardia, no gallops, no rubs Abdomen: Soft, nontender, no organomegaly, bowel sounds present Neuro: No focal deficits, no facial deformity, AO x3, power 5/5 in all limbs Extremities: Bilateral lower extremity pitting edema, improving.. Patient has a small scratch over the right second intermetatarsal space. No signs of cellulitis currently. Data 06/10/24 02:57 06/10/24 02:57 A&P Assessment and plan (1) Hypoxia: (2) Pleural effusion: (3) Dyspnea: (4) Anasarca: (5) Elevated troponin: (6) Acute exacerbation of congestive heart failure: (7) Benign hypertension: (8) Acute kidney injury: Plan Acute diastolic CHF decompensation Possible dietary indiscretion , Patient compliant with her medication No previous history of stents or PCI Grade 2 diastolic dysfunction with preserve ejection fraction Currently in hypervolemic state with anasarca Start IV diuresis Intermittent hypoxia Endorsing orthopnea, PND, typical signs of congestive heart failure No previous history of sleep apnea Currently on room air saturating 95% Will need oxygen evaluation before discharge Has pleural effusion as well which are chronic in nature She may benefit from Bumex instead of Lasix Chronic kidney disease, hypertension Creatinine around baseline Follows up with nephrology On multiple antihypertensive regimen which I would resume for now currently normotensive Hyperkalemia: Hold potassium supplementation Elevated troponin: No active chest pain, troponin trending down: Demand ischemia with underlying chronic kidney disease Full code Cardiac consistent carb diet DVT prophylaxis: Heparin June 08, 2024 Overnight labs and H&P reviewed. Continue Bumex 2 mg IV every 12 hours with close monitoring of renal function. On her previous admission here, she was noted to have nearly 13 g of proteinuria with concern for nephrotic syndrome. She was referred to see Dr. Sudha Hamilton from nephrology in [place]. Reportedly she was then referred to [place]. Patient is uncertain if this was because she needed a kidney biopsy. She states that getting to [place] is not an option for her. She therefore established care with nephrology at [facility] in [place]. However he is yet to see the physician, upcoming appointment at the end of June. Blood pressure is uncontrolled today. Hydralazine is currently at 25 mg 3 times a day, will increase dose to 50 mg 3 times daily. Continue nifedipine 60 mg daily, metoprolol 50 twice daily. Should blood pressure remain uncontrolled with up titration of hydralazine, will aim to increase nifedipine next. Anemia likely related to chronic kidney disease. Check iron panel. Changed to inpatient admission June 09, 2024 Continue Bumex 2 mg IV every 12 hours. Lower extremity edema slightly improved. Patient is stating dyspnea at rest is better, however unable to lay flat. Needs 1.5lpm supplemental 02. Kidney function is stable with creatinine at 2.7. Urine output is not accurately charted. Continue IV diuresis today with aim to transition to oral diuresis over the next 24 hours. Remains chest pain-free. 06/10/2024 Patient gets short of breath and dyspneic upon exertion. She is unable to lay flat today. She is on 2 L nasal cannula at this time. Creatinine up to 3.0 today. BUN 40. I will stop IV diuretics today. Patient developing acute kidney injury. Baseline is around 1.7-2. Will consult nephrology. Transition to oral Bumex today and monitor for next 24 hours. Will check home oxygen evaluation. Echo March 2024 shows grade 2/4 diastolic dysfunction, EF 60%. Patient may be able to discharge home in next 24 to 48 hours PDMP PDMP Reviewed: Not Reviewed Attestations 2 Medical Necessity Statement*: Patient short of breath upon exertion. Will be transition to oral diuretic today. Will need to monitor patient in the hospital today. Diagnoses Hypoxia R09.02 Pleural effusion J90 Dyspnea R06.00 Anasarca R60.1 Elevated troponin R79.89 Acute exacerbation of congestive heart failure I50.9 Benign hypertension I10 Acute kidney injury N17.9
[2024-06-10 16:56] LABS: Glucose Point of Care 203 mg/dL (70-110)
[2024-06-10 20:32] LABS: Glucose Point of Care 152 mg/dL (70-110)
[2024-06-11] VITALS (7 sets, daily range): BP systolic 146–182; BP diastolic 63–95; PULSE 73–78; RESP 16–18; TEMP 36.5–37; O2SAT 90–95
[2024-06-11] MEDS: heparin 5,000 unit/mL INJ 1 mL 5000 UNIT SUBCUT ×3 (00:05→23:52)
[2024-06-11 05:30] LABS: Basophils % 0.7 %; Eosinophils # 1.1 10^3/uL (0.0-0.8); Eosinophils % 18.2 %; Hematocrit 28.9 % (36-47); Lymphocytes # 1.8 10^3/uL (0.8-4.8); Lymphocytes % 30.6 %; Mean Corpuscular HGB Conc 31.5 g/dL (30-55); Mean Corpuscular Hemoglobin 27.2 pg (27-33); Mean Corpuscular Volume 86.5 fl (85-98); Mean Platelet Volume 9.9 fL (7.4-10.4); Monocytes # 0.5 10^3/uL (0.2-0.9); Monocytes % 8.8 %; Neutrophils # 2.41 10^3/uL (1.8-7.7); Neutrophils % 41.5 %; Nucleated Red Blood Cells % 0 %; Platelet Count 407 10^3/cmm (157-399); Red Blood Count 3.34 10^6/uL (3.85-5.65); Red Cell Distribution Width 13.9 % (12.1-15.1); White Blood Count 5.81 10^3/uL (3.29-11.43)
[2024-06-11 05:54] LABS: Anion Gap 12.5 (5-19); Blood Urea Nitrogen 39 mg/dL (6-20); Calcium 8.8 mg/dL (8.5-10.5); Carbon Dioxide 27 mmol/L (22-29); Chloride 103 mmol/L (98-107); Creatinine Clr Calc Pharmacy 28.2946; Glomerular Filtration Rate 18.7 mL/min (90-130); Glucose 135 mg/dL (65-115); Magnesium 2.1 mg/dL (1.7-2.3); Osmolality Calculated 297 mOsm/kg (285-295); Potassium 4.5 mmol/L (3.5-5.1); Sodium 138 mmol/L (136-145)
[2024-06-11 08:12] LABS: Glucose Point of Care 136 mg/dL (70-110)
[2024-06-11] MEDS: NIFEdipine ER (24 hr) 30 mg Tablet 60 MG PO (08:57)
[2024-06-11] MEDS: hyDRALAzine 25 mg Tablet 50 MG PO (08:57)
[2024-06-11] MEDS: bumetanide 0.25 mg/mL SDV 10 mL 2 MG IVP ×2 (08:57→20:46)
[2024-06-11] MEDS: aspirin 81 mg EC Tablet PO (08:57)
[2024-06-11] MEDS: sennosides-docusate Tablet 1 TAB PO (08:57)
[2024-06-11] MEDS: metoprolol tartrate 25 mg Tablet 50 MG PO ×2 (09:01→20:47)
--- NOTE | 2024-06-11 09:31 | PC.CHAP ---
Pastoral Care Encounter/Spiritual Assessment Type of Contact [] Declined locator visit [] Patient/Family/Request visit [] Outpatient visit [] Follow-up visit [] Physician referral [] Code/Alert [x] Routine visit [] Staff referral [] Actively dying [] Patient sleeping [] Family support [] [] Out of room [] Palliative care [] [] Receiving care in room [] Pre-surgical visit [] Trauma [] Long length of stay [] ICU visit [] Other: Relational/Emotional Strength [x] Patient feels connected with others/family/visitors/staff [] Distress [] Loneliness/isolation [] Abandonment Spirituality of Patient [x] Person of Anuradha [] Attends Episcopalian of their Anuradha [x] Believes in Prayer [] Reads Bible or Anabaptism materials [] There are Spiritual issues to be addressed 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 Interventions [] Prayer [x] Active listening [x] Non-anxious presence [x] Spiritual/emotional support [] Crisis/trauma care [] Spiritual counseling [] Bereavement support [] Provided bereavement packet [] Provided Bible/devotional materials [] Provided toy/stuffed animal, coloring book to patient or family member [] Provided Communion [] Anointing/[place] [] Salvation [x] Completed spiritual assessment [] Other: Impact on Illness or Injury [] Angry [] Fearful [] Anxious [] Often cries [] Exhaustion [] Unable to work [] Unable to attend protestant [] Unable to walk/stand [] Unable to read [] Unable to drive [] Unable to eat/drink [] Unable to sleep [] Unable to be with family [] Patient intubated [] Other: Summary Time spent with patient 5 min
--- NOTE | 2024-06-11 11:08 | P.PN_ITS ---
Subjective 2 Subjective: Patient reports significant shortness of breath when eating or with minimal exertion. She does feel overall it is improving daily. Notes that her volume status continues to improve. Denies fevers or chills. Medications: Reviewed: Yes Vitals/I&O/Wt Last Vital Signs Temp 98.0 F 06/11/24 08:16 Pulse 78 06/11/24 10:59 Resp 16 06/11/24 10:59 BP 180/95 06/11/24 08:16 Pulse Ox 94 06/11/24 10:59 O2 Del Method Room Air 06/11/24 10:59 O2 Flow Rate 1 06/10/24 11:12 06/10/24 06/11/24 06/11/24 22:59 06:59 14:59 Intake Total 1240 / 2200 480 / 2680 120 / 120 Balance 1240 / 2200 480 / 2680 120 / 120 Physical Exam 2 Narrative: General: Patient is awake and alert. Head: Normocephalic. Atraumatic. EOM intact. Hirsutism. Neck: No JVD. Cardiovascular: RRR. No gallops. No murmurs. Bilateral lower extremity edema present. Lungs: Breath sounds diminished bilateral bases. No use of accessory muscles, no crackles or wheezes. Conversational dyspnea present. Skin: No jaundice. No rashes. Abdomen: Normal bowel sounds, abdomen soft and nontender. Genito Urinary: Genital exam not performed since complaints not related. Rectal: Rectal exam not performed since no symptoms indicated blood loss. Extremities: No cyanosis or clubbing. Musculoskeletal: No erythematous joints. Neurological: Moves all 4 extremities. No myoclonus. Data 06/11/24 05:23 06/11/24 05:23 Micro: Microbiology 06/11/24 04:20 Occult Blood (FIT) - Final Stool Routine Collection A&P Assessment and plan (1) Hypoxia: (2) Pleural effusion: (3) Dyspnea: (4) Anasarca: (5) Elevated troponin: (6) Acute exacerbation of congestive heart failure: (7) Benign hypertension: (8) Acute kidney injury: Plan Acute diastolic heart failure with preserved ejection fraction exacerbation -Volume status seems to be improving -Continue IV Bumex -Will plan to transition to oral Bumex at discharge -She continues to improve, anticipate discharge in next 24 to 48 hours Intermittent hypoxia secondary to CHF -Home oxygen evaluation today in anticipation possible discharge Monday Chronic kidney disease Suspected nephrotic syndrome with anasarca -Patient will follow-up with nephrology after discharge, has an appointment for the end of next month Hypertension -Blood pressure remains poorly controlled overall -Will increase hydralazine dose -Continue nifedipine -Continue diuresis Type 2 diabetes mellitus -Sliding-scale insulin correction DVT prophylaxis: Heparin PDMP PDMP Reviewed: Not Reviewed Attestations 2 Medical Necessity Statement*: Patient requires ongoing hospitalization for IV diuresis, titration of blood pressure meds, home oxygen evaluation, and supportive care. Coding Level of Care Code Acute Code for g Fwd Diagnoses Hypoxia R09.02 Pleural effusion J90 Dyspnea R06.00 Anasarca R60.1 Elevated troponin R79.89 Acute exacerbation of congestive heart failure I50.9 Benign hypertension I10 Acute kidney injury N17.9
[2024-06-11 11:26] LABS: Glucose Point of Care 171 mg/dL (70-110)
--- NOTE | 2024-06-11 11:33 | PM.CONSULT ---
Providers/Reason For Consult Consulting Physician/Specialty*: Nephrology Reason for Consult*: clint Requesting Physician: Dr Saravia Attending Physician: Teddy Saravia MD Primary Care Provider: SHELLEY Mackay History of Present Illness History of Present Illness Mellisa Matthews is a 49 year old female, with a history of diastolic CHF, htn, dm2, ckd stage 4, who initially presented to the er on 06/07/2024 complainin of a 1 week history of progressively worsening shortness of breath, orthopnea, PND, shortness of breath. She was found to have an o2 saturation in the 802 by ems and was placed on supplemental oxygen. On presentation, she was found to have a creatinine of 2.9 ( baseline ~ 2-2.5). She was started on iv bumex and her creatinine was 2.7 today. nephrology was consulted for further management of her clint. She is currently still complaining of bang and orthopnea but her sob is improved. Review of Systems General: Reports: 10 or more systems reviewed and unremarkable except in HPI and below Medications/Allergies Home Medications ?Medication ?Instructions ?Recorded ?Confirmed ?Last Taken ?Type aspirin 81 mg capsule 81 mg PO DAILY 03/10/24 06/07/24 06/07/24 History insulin lispro 100 unit/mL See Rx Instructions .Route .COMPLEX 03/10/24 06/07/24 06/07/24 History subcutaneous solution pioglitazone 30 mg tablet 30 mg PO DAILY 03/10/24 06/07/24 06/07/24 History rosuvastatin 40 mg tablet 40 mg PO DAILY 03/10/24 06/07/24 06/07/24 History hydralazine 25 mg tablet 25 mg PO TID #240 tabs 04/04/24 06/07/24 06/07/24 Rx metoprolol tartrate 25 mg tablet 50 mg (2 x 25 mg) PO BID@0900,2100 04/04/24 06/07/24 06/07/24 Rx #180 tabs albuterol sulfate 90 mcg/actuation 2 inh inhalation Q4H PRN shortness 05/09/24 06/07/24 Unknown Rx aerosol inhaler of breath or wheezing #18 grams calcium carbonate 1,000 1 tab PO QID PRN Indigestion 05/09/24 06/07/24 06/07/24 History mg-simethicone 60 mg chewable tablet (Antacid Anti-Gas (calcium carb-simeth)) fenofibrate nanocrystallized 145 145 mg PO DAILY 05/09/24 06/07/24 06/07/24 History mg tablet furosemide 20 mg tablet 60 mg PO BID 05/09/24 06/07/24 06/07/24 History nifedipine 60 mg tablet,extended 60 mg PO DAILY 05/09/24 06/07/24 06/07/24 History release 24 hr potassium chloride 20 mEq See Rx Instructions .Route .COMPLEX 05/09/24 06/07/24 06/07/24 History tablet,extended release(part/cryst) hydrocodone 5 mg-acetaminophen 325 1 tab PO Q4H PRN pain #10 tabs 06/01/24 06/07/24 06/07/24 Rx mg tablet Allergies Allergy/AdvReac Type Severity Reaction Status Date / Time Iodinated Contrast Media Allergy ALGY-Hives Verified 06/07/24 15:59 morphine Allergy ALGY-Hives Verified 06/07/24 15:59 Current Medications Generic Name Dose Route Start Last Admin Trade Name Freq PRN Reason Stop Dose Admin Acetaminophen 500 mg 06/07/24 23:13 06/08/24 03:28 Acetaminophen 500 Mg Tablet PO 500 mg Q4H PRN Administration fever Albuterol/Ipratropium 3 ml 06/07/24 23:13 06/10/24 11:38 Ipratropium-Albuterol 3 Ml Neb INHALATION 3 ml Q6H PRN Administration SHORTNESS OF BREATH Aspirin 81 mg 06/08/24 09:00 06/11/24 08:57 Aspirin 81 Mg Ec Tablet PO 81 mg DAILY KATT Administration Bumetanide 2 mg 06/08/24 09:00 06/11/24 08:57 Bumetanide 0.25 Mg/Ml Sdv 10 Ml IVP 2 mg Q12H KATT Administration Heparin Sodium (Porcine) 5,000 unit 06/07/24 23:13 06/11/24 00:05 Heparin 5,000 Unit/Ml Inj 1 Ml SUBCUT 5,000 unit Q12H KATT Administration Insulin Human Lispro 0 unit 06/08/24 08:00 06/11/24 07:53 Insulin Lispro 100 Unit/1 Ml SUBCUT Not Given WM&BEDTIME KATT Protocol Metoprolol Tartrate 50 mg 06/08/24 09:00 06/11/24 09:01 Metoprolol Tartrate 25 Mg Tablet PO 50 mg BID@0900,2100 KATT Administration Nifedipine 60 mg 06/08/24 09:00 06/11/24 08:57 Nifedipine Er (24 Hr) 30 Mg Tablet PO 60 mg DAILY KATT Administration Senna/Docusate Sodium 1 tab 06/08/24 09:00 06/11/24 08:57 Sennosides-Docusate Tablet PO 1 tab DAILY KATT Administration PFSH Acute PFSH: Medical History T2DM (type 2 diabetes mellitus) Congestive heart failure section wound seroma, Hypertension Diabetes Family History Father CAD (coronary artery disease) Social History Smoking and tobacco/nicotine status: never used tobacco/nicotine Vitals/I&O/Wt Last Vital Signs Temp 98.0 F 06/11/24 08:16 Pulse 78 06/11/24 10:59 Resp 16 06/11/24 10:59 BP 180/95 06/11/24 08:16 Pulse Ox 94 06/11/24 10:59 O2 Del Method Room Air 06/11/24 10:59 O2 Flow Rate 1 06/10/24 11:12 06/10/24 06/11/24 06/11/24 22:59 06:59 14:59 Intake Total 1240 / 2200 480 / 2680 120 / 120 Balance 1240 / 2200 480 / 2680 120 / 120 Physical Exam Narrative: GEN: nad, alert, conversant HEAD: normocephalic, atraumatic EYES: eomi, anicteric sclera HEENT: MMM NECK: no jvd LUNGS: diminished BS bilaterally ABD: soft, nt, nd EXT: trace LE edema SKIN: no rash NEURO: grossly normal Data 06/11/24 05:23 06/11/24 05:23 Micro: Microbiology 06/11/24 04:20 Occult Blood (FIT) - Final Stool Routine Collection A&P Assessment and plan (1) Acute kidney injury: CLINT SUPERIMPOSED ON CKD STAGE 4- She has ckd stage 4 at baseline likely due to diabetic and hypertensive kidney disease +/- cardiorenal syndrome. her creatinine is stable with diuresis, but above her baseline. She is non-oliguric with stable lytes. Cont iv bumex acute on chronic diastolic chf- her volume status is improving. cont iv bumex. start 1500 ml fluid restriction acute hypoxic respiratory failure- Due to chf. improved. cont diuresis essential hypertension- bp is stable dm2 PDMP PDMP Reviewed: Not Reviewed Consult Attestations Medical Necessity Statement: chf, clint Time Spent in Patient Care: 50 minutes Coding Level of Care Code Acute Code for [facility] Fwd Diagnoses Acute kidney injury N17.9
[2024-06-11] MEDS: insulin lispro 100 unit/1 mL SUBCUT ×3 (12:05→20:45)
[2024-06-11] MEDS: hyDRALAzine 25 mg Tablet 100 MG PO ×2 (15:18→20:46)
[2024-06-11 17:24] LABS: Glucose Point of Care 177 mg/dL (70-110)
[2024-06-11 20:41] LABS: Glucose Point of Care 196 mg/dL (70-110)
--- NOTE | 2024-06-12 00:01 | PC.NURSE ---
Patient recieved 4 units of humalog for bs of 196 per sliding scale at 2044. This nurse rounded on patient one hour later and patient was complaining of being tired. Patient checked her dexcom and bs was down to 58. This nurse gave patient a turkey sandwich and orange juice in attempt to bring blood sugar back up to normal range. Nurse rechecked patient 15 minutes later and patients bs was then 62. Patient requested more juice and a jello. This nurse checked with patient after 15 minutes and bs was at 88. Patient stated they are feeling better.
[2024-06-12 00:42] VITALS: BP 143/70; PULSE 65; RESP 16; O2SAT 94
[2024-06-12 05:16] LABS: Albumin Level 2.4 g/dL (3.5-5.2); Anion Gap 12.4 (5-19); Blood Urea Nitrogen 41 mg/dL (6-20); Calcium 8.6 mg/dL (8.5-10.5); Carbon Dioxide 26 mmol/L (22-29); Chloride 102 mmol/L (98-107); Creatinine Clr Calc Pharmacy 28.2946; Glomerular Filtration Rate 18.7 mL/min (90-130); Glucose 147 mg/dL (65-115); Phosphorus 4.7 mg/dL (2.5-4.5); Potassium 4.4 mmol/L (3.5-5.1); Sodium 136 mmol/L (136-145)
[2024-06-12 05:34] VITALS: BP 140/76; PULSE 62; RESP 16; O2SAT 93
[2024-06-12 07:36] VITALS: BP 179/83; PULSE 67; RESP 16; TEMP 36.6; O2SAT 94
[2024-06-12] MEDS: bumetanide 0.25 mg/mL SDV 10 mL 2 MG IVP (08:08)
[2024-06-12] MEDS: aspirin 81 mg EC Tablet PO (08:10)
[2024-06-12] MEDS: NIFEdipine ER (24 hr) 30 mg Tablet 60 MG PO (08:10)
[2024-06-12] MEDS: sennosides-docusate Tablet 1 TAB PO (08:10)
[2024-06-12] MEDS: hyDRALAzine 25 mg Tablet 100 MG PO ×2 (08:11→14:10)
[2024-06-12 08:48] LABS: Glucose Point of Care 139 mg/dL (70-110)
--- NOTE | 2024-06-12 09:25 | PC.CHAP ---
Pastoral Care Encounter/Spiritual Assessment Type of Contact [] Declined milled rice broker visit [] Patient/Family/Request visit [] Outpatient visit [] Follow-up visit [] Physician referral [] Code/Alert [] Routine visit [] Staff referral [] Actively dying [] Patient sleeping [] Family support [] [] Out of room [] Palliative care [] [] Receiving care in room [] Pre-surgical visit [] Trauma [] Long length of stay [] ICU visit [] Other: Relational/Emotional Strength [] Patient feels connected with others/family/visitors/staff [] Distress [] Loneliness/isolation [] Abandonment Spirituality of Patient [] Person of Anuradha [] Attends Sikh of their Anuradha [] Believes in Prayer [] Reads Bible or Uatsdin materials [] There are Spiritual issues to be addressed Stoner Out Interventions [x] Prayer [] Active listening [] Non-anxious presence [] Spiritual/emotional support [] Crisis/trauma care [] Spiritual counseling [] Bereavement support [] Provided bereavement packet [] Provided Bible/devotional materials [] Provided toy/stuffed animal, coloring book to patient or family member [] Provided Communion [] Anointing/[place] [] Salvation [] Completed spiritual assessment [] Other: Impact on Illness or Injury [] Angry [] Fearful [] Anxious [] Often cries [] Exhaustion [] Unable to work [] Unable to attend sikh [] Unable to walk/stand [] Unable to read [] Unable to drive [] Unable to eat/drink [] Unable to sleep [] Unable to be with family [] Patient intubated [] Other: Summary Time spent with patient
--- NOTE | 2024-06-12 10:32 | P.PN_ITS ---
Subjective 2 Subjective: Patient's sob, orthopnea and bang have improved on room air. Medications: Reviewed: Yes Vitals/I&O/Wt Last Vital Signs Temp 97.9 F 06/12/24 07:36 Pulse 67 06/12/24 07:36 Resp 16 06/12/24 07:36 BP 179/83 06/12/24 07:36 Pulse Ox 94 06/12/24 07:36 O2 Del Method Room Air 06/12/24 07:36 O2 Flow Rate 1 06/10/24 11:12 06/11/24 06/12/24 06/12/24 22:59 06:59 14:59 Intake Total 120 / 360 Balance 120 / 360 Weight last 48 hrs Weight 90.718 kg Physical Exam 2 Narrative: GEN: nad, alert, conversant HEAD: normocephalic, atraumatic EYES: eomi, anicteric sclera HEENT: MMM NECK: no jvd LUNGS: diminished BS bilaterally ABD: soft, nt, nd EXT: trace LE edema SKIN: no rash NEURO: grossly normal Data 06/11/24 05:23 06/12/24 04:46 A&P Assessment and plan (1) Acute exacerbation of congestive heart failure: Plan CLINT SUPERIMPOSED ON CKD STAGE 4- She has ckd stage 4 at baseline likely due to diabetic and hypertensive kidney disease +/- cardiorenal syndrome. her creatinine remains stable with diuresis, but above her baseline. She remains non-oliguric with stable lytes. Cont iv bumex and transition to po diuretics prior to d/c acute on chronic diastolic chf- her volume status is improving. cont iv bumex. cont 1500 ml fluid restriction acute hypoxic respiratory failure- Due to chf. improved. cont diuresis essential hypertension- bp is stable dm2 PDMP PDMP Reviewed: Not Reviewed Attestations 2 Medical Necessity Statement*: clint, chf Time Spent in Patient Care: 25 minutes Coding Level of Care Code Acute Code for [facility] Fwd Diagnoses Acute exacerbation of congestive heart failure I50.9
[2024-06-12 11:42] VITALS: BP 149/81; PULSE 81; RESP 15; TEMP 36.6; O2SAT 93
[2024-06-12 11:47] LABS: Glucose Point of Care 182 mg/dL (70-110)
[2024-06-12] MEDS: heparin 5,000 unit/mL INJ 1 mL 5000 UNIT SUBCUT (12:09)
--- NOTE | 2024-06-12 12:10 | P.DS_ITS ---
Discharge Providers Date of Admission: 06/08/24 09:33 Date of Discharge: June 12, 2024 Attending Provider at Admission: Eydta Acosta MD Attending Provider at Discharge: Teddy Saravia MD Consults: Nephrology Primary Care Provider: SHELLEY Mackay Diagnoses at Discharge Discharge Diagnosis (1) Acute exacerbation of congestive heart failure: Status: Acute Reason for Visit Reason for Visit: pain w/ breathing Hospital Course Hospital Course Mellisa Matthews is a 49-year-old female with past medical history significant for chronic kidney disease, hypertension, diastolic heart failure, multiple other comorbidities who presented with shortness of breath and hypoxia, found to have acute hypoxia secondary to acute on chronic heart failure with preserved ejection fraction exacerbation and chronic kidney disease. She was treated with IV diuresis with improvement in volume status. She was treated with supplemental oxygen support which was weaned as tolerated. Nephrology consulted and followed. Her volume status and symptoms significant improved with treatment. She will be rotated to [facility] from [facility] at discharge. She was found to have uncontrolled hypertension for which antihypertensives were adjusted as per discharge medication reconciliation below. She is to keep appointment with a local photographer to establish care. She is to follow-up with her PCP within 1 week to review symptomatology and ongoing care plan. Physical Exam Narrative: General: Patient is awake and alert. Head: Normocephalic. Atraumatic. EOM intact. Hirsutism. Neck: No JVD. Cardiovascular: RRR. No gallops. No murmurs. Bilateral lower extremity edema, improved from prior exam. Lungs: Breath sounds diminished bilateral bases. No use of accessory muscles, no crackles or wheezes. Conversational dyspnea present. Skin: No jaundice. No rashes. Abdomen: Normal bowel sounds, abdomen soft and nontender. Extremities: No cyanosis or clubbing. Musculoskeletal: No erythematous joints. Neurological: Moves all 4 extremities. No myoclonus. Discharge Data Studies Completed and Pending Completed Studies During Hospitalization Category Date Time Status XR chest 1V portable [id number] Stat Exams 06/07/24 18:49 Completed Radiology Impressions Chest X-Ray 06/07/24 18:49 IMPRESSION: 1. Overall no significant interval change compared to 05/23/2024 CT. 2. Mild cardiomegaly, pulmonary vascular congestion and left greater than right pleural effusions suggestive of CHF/volume overload again noted. 3. Patchy underlying bibasilar opacities due to atelectasis with or without superimposed pneumonic consolidation appear unchanged. Laboratory Results WBC 5.81 10^3/uL (3.29-11.43) 06/11/24 05:23 RBC 3.34 10^6/uL (3.85-5.65) L 06/11/24 05:23 Hgb 9.10 g/dL (11.27-16.99) L 06/11/24 05:23 Hct 28.9 % (36-47) L 06/11/24 05:23 MCV 86.5 fl (85-98) 06/11/24 05:23 MCH 27.2 pg (27-33) 06/11/24 05:23 MCHC 31.5 g/dL (30-55) 06/11/24 05:23 RDW 13.9 % (12.1-15.1) 06/11/24 05:23 Plt Count 407 10^3/cmm (157-399) H 06/11/24 05:23 MPV 9.9 fL (7.4-10.4) 06/11/24 05:23 Neut % (Auto) 41.5 % 06/11/24 05:23 Lymph % (Auto) 30.6 % 06/11/24 05:23 [place] % (Auto) 8.8 % 06/11/24 05:23 Eos % (Auto) 18.2 % 06/11/24 05:23 Baso % (Auto) 0.7 % 06/11/24 05:23 Neut # (Auto) 2.41 10^3/uL (1.8-7.7) 06/11/24 05:23 Lymph # (Auto) 1.8 10^3/uL (0.8-4.8) 06/11/24 05:23 [place] # (Auto) 0.5 10^3/uL (0.2-0.9) 06/11/24 05:23 Eos # (Auto) 1.1 10^3/uL (0.0-0.8) H 06/11/24 05:23 Baso # (Auto) 0.0 10^3/uL (0.0-0.1) 06/11/24 05:23 Nucleated RBC % (auto) 0 % 06/11/24 05:23 Nucleated RBCs # 0.0 /100WBC 06/11/24 05:23 Sodium 136 mmol/L (136-145) 06/12/24 04:46 Potassium 4.4 mmol/L (3.5-5.1) 06/12/24 04:46 Chloride 102 mmol/L (98-107) 06/12/24 04:46 Carbon Dioxide 26 mmol/L (22-29) 06/12/24 04:46 Anion Gap 12.4 (5-19) 06/12/24 04:46 BUN 41 mg/dL (6-20) H 06/12/24 04:46 Creatinine 2.7 mg/dL (0.5-0.9) H 06/12/24 04:46 GFR Calculation 18.7 mL/min (90-130) L 06/12/24 04:46 Glucose 147 mg/dL (65-115) H 06/12/24 04:46 POC Glucose 182 mg/dL (70-110) H 06/12/24 11:44 Calculated Osmolality 297 mOsm/kg (285-295) H 06/11/24 05:23 Lactic Acid 0.4 mmol/L (0.5-2.2) L 06/07/24 16:09 Calcium 8.6 mg/dL (8.5-10.5) 06/12/24 04:46 Phosphorus 4.7 mg/dL (2.5-4.5) H 06/12/24 04:46 Magnesium 2.1 mg/dL (1.7-2.3) 06/11/24 05:23 Iron 47 ug/dL (37-145) 06/10/24 02:57 TIBC 277 mcg/dl 06/10/24 02:57 % Saturation 16.9 % (20-50) L 06/10/24 02:57 Unsat Iron Binding 230 ug/dL (112-347) 06/10/24 02:57 Transferrin 242 mg/dL (200-360) 06/10/24 02:57 Ferritin 119 ng/mL (15-150) 06/10/24 02:57 Total Bilirubin 0.2 mg/dL (0.15-1.2) 06/10/24 02:57 AST 18 U/L (0-32) 06/10/24 02:57 ALT 13 U/L (0-33) 06/10/24 02:57 Alkaline Phosphatase 58 U/L (35-105) 06/10/24 02:57 Troponin T Baseline 243 ng/L (0-10) H* 06/07/24 16:09 Troponin T 120 Minute 228.7 ng/L (0-10) H 06/07/24 19:50 Delta Troponin T -14.3 ABS# (0-10) L 06/07/24 19:50 Troponin T Hi Sens 6Hr 230.4 ng/L (0-10) H 06/08/24 01:05 Troponin T Hi Sens 6Hr Delta -12.6 ng/L (0-12) L 06/08/24 01:05 NT-Pro-B Natriuret Pep 9689 pg/mL (0-125) H 06/07/24 16:09 Total Protein 4.9 g/dL (6.6-8.7) L 06/10/24 02:57 Albumin 2.4 g/dL (3.5-5.2) L 06/12/24 04:46 Globulin 2.6 g/dL (1.3-4.6) 06/10/24 02:57 Vitamin B12 386 pg/mL (232-1245) 06/10/24 02:57 Folate 4.9 ng/mL (4.8-37.3) 06/10/24 02:57 Vitals Last Vital Signs Temp 97.9 F 06/12/24 07:36 Pulse 67 06/12/24 07:36 Resp 16 06/12/24 07:36 BP 179/83 06/12/24 07:36 Pulse Ox 94 06/12/24 07:36 O2 Del Method Room Air 06/12/24 07:36 O2 Flow Rate 1 06/10/24 11:12 Discharge Plan Discharge Patient Disposition: Home Condition: Stable Prescriptions: New bumetanide 2 mg tablet 2 mg PO BIDAC Qty: 60 0RF hydralazine 100 mg tablet 100 mg PO TID Qty: 90 0RF Continued metoprolol tartrate 25 mg tablet 50 mg PO BID@0900,2100 Qty: 180 1RF potassium chloride 20 mEq tablet,ER particles/crystals See Rx Instructions .ROUTE .COMPLEX Rx Instructions: TAKE TWO TABLETS BY MOUTH IN THE MORNING and ONE IN THE EVENING. Take with food. nifedipine 60 mg tablet extended release 24hr 60 mg PO DAILY Antacid Anti-Gas (ca carb-sim) 1,000-60 mg Tablet,Chewable 1 tab PO QID PRN (Reason: Indigestion) fenofibrate nanocrystallized 145 mg tablet 145 mg PO DAILY albuterol sulfate 90 mcg/actuation HFA aerosol inhaler 2 inh INHALATION Q4H PRN (Reason: shortness of breath or wheezing) Qty: 18 0RF hydrocodone-acetaminophen 5-325 mg tablet 1 tab PO Q4H PRN (Reason: pain) Qty: 10 0RF insulin lispro 100 unit/mL solution See Rx Instructions .ROUTE .COMPLEX Rx Instructions: Inject 7 units subq with meals if bs is below 200 BG, above 200 inject 12 units. rosuvastatin 40 mg Tablet 40 mg PO DAILY aspirin 81 mg Capsule 81 mg PO DAILY Discontinued hydralazine 25 mg tablet 25 mg PO TID Qty: 240 5RF furosemide 20 mg tablet 60 mg PO BID pioglitazone 30 mg Tablet 30 mg PO DAILY Discharge Orders: Discharge Order (Routine); Ordered 06/12/24 Ordered By: Teddy Saravia Referrals: Jimmy Antonio FNP [Primary Care Provider] - 06/14/24 9:00 am Discharge Diet: Advance as tolerated and Low Salt Discharge Activity: Resume usual activity and Increase activity as tolerated Patient Instructions: Bumetanide (By mouth) (Bumex), Hydralazine (By mouth), CHF Stoplight, Opioid Safety Activity Restrictions/Additional Instructions: Take medications as prescribed. Recommend keeping home blood pressure log. Bring log to PCP appointment. Keep appointment with local nephrology to establish care. No cvnd-ngx-[id number] NSAIDs. Monitor fluid intake, recommend keeping to 2 L/day. Discharge Attestations Time Spent in Discharge Care*: greater than 30 min Quality Metrics Clinical Quality Measures [ No reported AMI, CVA or VTE this stay] Coding Level of Care Code Acute Code for Chg Fwd Diagnoses Acute exacerbation of congestive heart failure I50.9
--- NOTE | 2024-06-12 13:55 | PC.NURSE ---
D/C pending ride home. Son will be picking pt up.
[2024-06-12 14:21] VITALS: BP 140/80; PULSE 80; O2SAT 94
== END 2024-06-12 14:22 | disposition home or self-care (01) | DRG 291 ==
LOC: ER 20:30 → MEDSURG 22:14
PROVIDERS: Internal Medicine; Student in an Organized Health Care Education/Training Program; Admitting Provider Internal Medicine; Emergency Provider Emergency Medicine; PCP Nurse Practitioner; Visit Provider Internal Medicine
DX: I13.0 Hypertensive heart and chronic kidney disease with heart failure and stage 1 through stage 4 chronic kidney disease, or unspecified chronic kidney disease (principal); I50.33 Acute on chronic diastolic (congestive) heart failure; N18.4 Chronic kidney disease, stage 4 (severe); N17.9 Acute kidney failure, unspecified; I24.89 Other forms of acute ischemic heart disease; E11.22 Type 2 diabetes mellitus with diabetic chronic kidney disease; Z79.4 Long term (current) use of insulin; R09.02 Hypoxemia; E87.5 Hyperkalemia; D63.1 Anemia in chronic kidney disease; Z79.82 Long term (current) use of aspirin
CPT/HCPCS: 36415; 36416; 71045; 80048; 80053; 80069; 82274; 82607; 82728; 82746; 82962; 83540; 83550; 83605; 83735; 83880; 84132; 84466; 84484; 85025; 93005; 94640; 94760; 96372; 96374; 99285; G0378; J1644; J1815; J1940; J3490; J9999

== ENCOUNTER 2024-06-21 10:05 | Outpatient (CLI) | payer MEDICAID, SELFPAY ==
--- NOTE | 2024-06-21 10:11 | XR_ITS ---
WS: [id number] PA and lateral chest, additional inspiration and expiration views, 06/21/2024 Clinical Data: pleural effusion Comparison: Portable chest, 06/07/2024 Findings: No nodules or masses are seen. There are bilateral pleural effusions with less effusion on the left compared to prior study. The heart is enlarged. There is no pneumothorax. On expiration there is no mediastinal shift or abnormal diaphragmatic elevation or depression. XR/XR chest 3V [id number] Impression: 1. Bilateral pleural effusions with less effusion on the left compared to prior study. 2. Cardiomegaly. 3. No abnormal diaphragm elevation or depression and no mediastinal shift on in spiration or expiration.
== END 2024-06-21 10:06 | disposition home or self-care (01) ==
LOC: RAD 10:09
PROVIDERS: PCP Nurse Practitioner; Visit Provider Nurse Practitioner Family
DX: I11.0 Hypertensive heart disease with heart failure (principal); I50.9 Heart failure, unspecified; J90 Pleural effusion, not elsewhere classified; I51.7 Cardiomegaly; I25.2 Old myocardial infarction; Z87.891 Personal history of nicotine dependence
CPT/HCPCS: 36415; 71047; 80048; 83880; 99214

== ENCOUNTER 2024-06-24 10:50 | Outpatient (CLI) | payer MEDICAID, SELFPAY ==
[2024-06-24 11:17] LABS: Basophils # 0.1 10^3/uL (0.0-0.1); Basophils % 0.9 %; Eosinophils # 0.6 10^3/uL (0.0-0.8); Eosinophils % 9.4 %; Hematocrit 31.2 % (36-47); Lymphocytes # 1.3 10^3/uL (0.8-4.8); Lymphocytes % 20.3 %; Mean Corpuscular HGB Conc 31.4 g/dL (30-55); Mean Platelet Volume 10.5 fL (7.4-10.4); Monocytes # 0.5 10^3/uL (0.2-0.9); Monocytes % 6.8 %; Neutrophils # 4.12 10^3/uL (1.8-7.7); Neutrophils % 62.4 %; Nucleated Red Blood Cells % 0 %; Platelet Count 285 10^3/cmm (157-399); Red Blood Count 3.63 10^6/uL (3.85-5.65); Red Cell Distribution Width 13.7 % (12.1-15.1)
[2024-06-24 11:39] LABS: Anion Gap 13.6 (5-19); Blood Urea Nitrogen 53 mg/dL (6-20); Calcium 8.7 mg/dL (8.5-10.5); Carbon Dioxide 24 mmol/L (22-29); Chloride 107 mmol/L (98-107); Glomerular Filtration Rate 15.9 mL/min (90-130); Glucose 206 mg/dL (65-115); Osmolality Calculated 310 mOsm/kg (285-295); Potassium 4.6 mmol/L (3.5-5.1); Sodium 140 mmol/L (136-145)
== END 2024-06-24 10:51 | disposition home or self-care (01) ==
LOC: LAB 10:51
PROVIDERS: PCP Nurse Practitioner; Visit Provider Nurse Practitioner Family
DX: I50.9 Heart failure, unspecified (principal)
CPT/HCPCS: 80048; 85025

== ENCOUNTER 2024-06-24 17:18 | Emergency (ER) | payer MEDICAID, SELFPAY ==
[2024-06-24 17:23] VITALS: BP 156/79; PULSE 77; RESP 18; TEMP 36.6; O2SAT 96
--- NOTE | 2024-06-24 17:26 | ECG_ITS ---
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 Measurements Intervals [place] Rate: 73 P: 52 CO: 165 QRS: 25 QRSD: 96 T: 65 QT: 378 QTc: 419 Interpretive Statements SINUS RHYTHM Compared to ECG 06/08/2024 01:58:58 No significant changes Electronically Signed On 06-24-2024 20:56:32 CDT by Saqib Gant M.D. [email or web address]
--- NOTE | 2024-06-24 17:26 | XRR_ITS ---
PROCEDURE INFORMATION: Exam: XR Chest Exam date and time: 06/24/2024 5:30 PM Age: 49 years old Clinical indication: Other: Chf TECHNIQUE: Imaging protocol: Radiologic exam of the chest. Views: 1 view. COMPARISON: CR XR chest 3V [id number] 06/21/2024 10:32 AM FINDINGS: Lungs: Compressive atelectasis/infiltrates of the lung bases. Pleural spaces: Mwib-lwhfldo-omli-right jsle-in-ndhlrnyg pleural effusions . No sizable pneumothorax. Heart/Mediastinum: Unchanged cardiomediastinal silhouette. Bones/joints: Unremarkable. XR/XR chest 1V portable [id number] IMPRESSION: As above.
--- NOTE | 2024-06-24 17:38 | CTR_ITS ---
PROCEDURE INFORMATION: Exam: CT Abdomen And Pelvis Without Contrast Exam date and time: 06/24/2024 6:10 PM Age: 49 years old Clinical indication: Abdominal pain; Flank; Right; Prior surgery; Surgery date: 6+ months; Surgery type: Gb, x 2; Additional info: Flank pain TECHNIQUE: Imaging protocol: Computed tomography of the abdomen and pelvis without contrast. Radiation optimization: All CT scans at this facility use at least one of these dose optimization techniques: automated exposure control; mA and/or kV adjustment per patient size (includes targeted exams where dose is matched to clinical indication); or iterative reconstruction. COMPARISON: [place] [id number] 05/31/2024 11:01 PM RADIATION DOSE METRICS: Total DLP (mGy-cm): 870.17 FINDINGS: Lungs: Lung bases are clear. No pleural effusion. Pleural spaces: Moderate bilateral pleural effusions are noted. Liver: Normal. No mass. Gallbladder and biliary ducts: The gallbladder has been resected. Pancreas: Normal. No ductal dilation. Spleen: Normal. No splenomegaly. Adrenal glands: Normal. No mass. Kidneys and ureters: Normal. No hydronephrosis. Stomach and bowel: Unremarkable. No obstruction. No mucosal thickening. Appendix: No evidence of appendicitis. Intraperitoneal space: Unremarkable. No free air. No significant fluid collection. Vasculature: Unremarkable. No abdominal aortic aneurysm. Lymph nodes: Unremarkable. No enlarged lymph nodes. Urinary bladder: Unremarkable as visualized. Reproductive: Unremarkable as visualized. Bones/joints: Unremarkable. No acute fracture. Soft tissues: Unremarkable. CT/CT kidney stone [id number] IMPRESSION: Persistent bilateral pleural effusions
--- NOTE | 2024-06-24 17:39 | W.ED.ABDPA2 ---
HPI - Abdominal Pain General: Chief Complaint: Abdominal Pain Stated Complaint: right flank pain Time Seen by Provider: 06/24/24 17:18 Source: patient and EMS Mode of arrival: EMS Limitations: no limitations History of Present Illness: 49-year-old female states that she been having some flank pain mainly on the right sides been going on for a week. Patient recently been admitted here for CHF she states that her PCP is concerned she has had some elevated creatinines and 1 have her creatinine rechecked. She denies any vomiting or diarrhea does have a history of chronic kidney disease states she still making urine. Associated Symptoms: Denies chills, diarrhea, fever(s), nausea and vomiting Related Data Home Medications ?Medication ?Instructions ?Recorded ?Confirmed aspirin 81 mg capsule 81 mg PO DAILY 03/10/24 06/21/24 insulin lispro 100 unit/mL See Rx Instructions .Route .COMPLEX 03/10/24 06/21/24 subcutaneous solution rosuvastatin 40 mg tablet 40 mg PO DAILY 03/10/24 06/21/24 calcium carbonate 1,000 1 tab PO QID PRN Indigestion 05/09/24 06/21/24 mg-simethicone 60 mg chewable tablet (Antacid Anti-Gas (calcium carb-simeth)) fenofibrate nanocrystallized 145 145 mg PO DAILY 05/09/24 06/21/24 mg tablet nifedipine 60 mg tablet,extended 60 mg PO DAILY 05/09/24 06/21/24 release 24 hr potassium chloride 20 mEq See Rx Instructions .Route .COMPLEX 05/09/24 06/21/24 tablet,extended release(part/cryst) Previous Rx's ?Medication ?Instructions ?Recorded metoprolol tartrate 25 mg tablet 50 mg (2 x 25 mg) PO BID@0900,2100 04/04/24 #180 tabs albuterol sulfate 90 mcg/actuation 2 inh inhalation Q4H PRN shortness 05/09/24 aerosol inhaler of breath or wheezing #18 grams hydrocodone 5 mg-acetaminophen 325 1 tab PO Q4H PRN pain #10 tabs 06/01/24 mg tablet bumetanide 2 mg tablet 2 mg PO BIDAC #60 tabs 06/12/24 hydralazine 100 mg tablet 100 mg PO TID #90 tabs 06/12/24 Allergies Allergy/AdvReac Type Severity Reaction Status Date / Time Iodinated Contrast Media Allergy ALGY-Hives Verified 06/21/24 09:31 morphine Allergy ALGY-Hives Verified 06/21/24 09:31 Review of Systems Const: Denies: fever(s), chills, body aches or change in appetite ENMT: Denies: throat pain or dental pain Card: Denies: chest pain Resp: Denies: dyspnea GI: Denies: abdominal pain, nausea, vomiting or diarrhea : Reports: flank pain Musc: Denies: neck pain or back pain Skin/Breast: Denies: rash Neuro: Denies: headache(s) PFSH ED PFSH: Medical History T2DM (type 2 diabetes mellitus) Congestive heart failure section wound seroma, Hypertension Diabetes Family History Father CAD (coronary artery disease) Social History Smoking and tobacco/nicotine status: never used tobacco/nicotine Physical Exam Const: COMMON NORMALS: no acute distress, patient oriented x3 and healthy appearing HENMT: COMMON NORMALS: normocephalic and atraumatic HEAD & SCALP: normocephalic and atraumatic Eye: COMMON NORMALS: conjunctivae normal CONJUNCTIVA: Yes conjunctivae normal Neck/C-Spine: COMMON NORMALS: full ROM and supple Chest: COMMONS NORMALS: normal inspection of the chest Resp: COMMON NORMALS: normal respiratory effort, No retractions, No use of accessory muscles and clear to auscultation bilaterally AUSCULTATION: clear to auscultation bilaterally Cardio: COMMON NORMALS: regular rate, regular rhythm and No murmurs present (Cardio) RATE: regular rate RHYTHM: regular rhythm GI: COMMON NORMALS: Normal to inspection, nondistended, normoactive bowel sounds present, Soft to palpation, non-tender and no masses PALPATION: Yes Soft to palpation Extremity: COMMON NORMALS: normal to inspection and full ROM Neuro: COMMON NORMALS: patient oriented x3, moves all extremities and no focal motor deficits Psych: COMMON NORMALS: mental status grossly normal, Normal thought process present and cooperative THOUGHT PROCESS: Normal thought process present Skin: COMMON NORMALS: no rashes or lesions noted and no wounds GENERAL SKIN EXAM: no rashes or lesions noted Course Vital Signs: Vital signs: Vital Signs Temperature 97.9 F 06/24/24 17:23 Pulse Rate 77 06/24/24 17:23 Respiratory Rate 18 06/24/24 17:23 Blood Pressure 156/79 06/24/24 17:23 Pulse Oximetry 96 06/24/24 17:23 Oxygen Delivery Me thod Room Air 06/24/24 17:23 MDM - Abdominal Pain Medical Decision Making Patient presents here with flank pain also chronic kidney disease she is concerned about her creatinine her creatinine levels improved from her last blood draw is making urine no signs of acute renal failure CT of her abdomen is normal she stable for discharge. Medical Records I reviewed the patient's medical records. Lab Data I reviewed the patient's lab results. 06/24/24 17:32 06/24/24 17:32 Labs/Radiology: Radiology Impressions Chest X-Ray 06/24/24 17:26 IMPRESSION: As above. Abdomen/Pelvis CT 06/24/24 17:38 IMPRESSION: Persistent bilateral pleural effusions Laboratory Results WBC 5.48 10^3/uL (3.29-11.43) 06/24/24 17:32 RBC 3.40 10^6/uL (3.85-5.65) L 06/24/24 17:32 Hgb 9.10 g/dL (11.27-16.99) L 06/24/24 17:32 Hct 28.9 % (36-47) L 06/24/24 17:32 MCV 85.0 fl (85-98) 06/24/24 17:32 MCH 26.8 pg (27-33) L 06/24/24 17:32 MCHC 31.5 g/dL (30-55) 06/24/24 17:32 RDW 13.8 % (12.1-15.1) 06/24/24 17:32 Plt Count 285 10^3/cmm (157-399) 06/24/24 17:32 MPV 10.2 fL (7.4-10.4) 06/24/24 17:32 Neut % (Auto) 58.5 % 06/24/24 17:32 Lymph % (Auto) 22.3 % 06/24/24 17:32 [place] % (Auto) 7.5 % 06/24/24 17:32 Eos % (Auto) 10.4 % 06/24/24 17:32 Baso % (Auto) 0.9 % 06/24/24 17:32 Neut # (Auto) 3.21 10^3/uL (1.8-7.7) 06/24/24 17:32 Lymph # (Auto) 1.2 10^3/uL (0.8-4.8) 06/24/24 17:32 [place] # (Auto) 0.4 10^3/uL (0.2-0.9) 06/24/24 17:32 Eos # (Auto) 0.6 10^3/uL (0.0-0.8) 06/24/24 17:32 Baso # (Auto) 0.1 10^3/uL (0.0-0.1) 06/24/24 17:32 Nucleated RBC % (auto) 0 % 06/24/24 17:32 Nucleated RBCs # 0.0 /100WBC 06/24/24 17:32 Sodium 139 mmol/L (136-145) 06/24/24 17:32 Potassium 4.2 mmol/L (3.5-5.1) 06/24/24 17:32 Chloride 104 mmol/L (98-107) 06/24/24 17:32 Carbon Dioxide 23 mmol/L (22-29) 06/24/24 17:32 Anion Gap 16.2 (5-19) 06/24/24 17:32 BUN 52 mg/dL (6-20) H 06/24/24 17:32 Creatinine 2.8 mg/dL (0.5-0.9) H 06/24/24 17:32 GFR Calculation 17.9 mL/min (90-130) L 06/24/24 17:32 Glucose 216 mg/dL (65-115) H 06/24/24 17:32 Calculated Osmolality 309 mOsm/kg (285-295) H 06/24/24 17:32 Calcium 8.6 mg/dL (8.5-10.5) 06/24/24 17:32 Magnesium 1.9 mg/dL (1.7-2.3) 06/24/24 17:32 Total Bilirubin 0.2 mg/dL (0.15-1.2) 06/24/24 17:32 AST 22 U/L (0-32) 06/24/24 17:32 ALT 16 U/L (0-33) 06/24/24 17:32 Alkaline Phosphatase 48 U/L (35-105) 06/24/24 17:32 Total Protein 5.5 g/dL (6.6-8.7) L 06/24/24 17:32 Albumin 2.9 g/dL (3.5-5.2) L 06/24/24 17:32 Globulin 2.6 g/dL (1.3-4.6) 06/24/24 17:32 Lipase 42 U/L (13-60) 06/24/24 17:32 Urine Color Yellow (Yellow) 06/24/24 18:34 Urine Appearance Clear (CLEAR) 06/24/24 18:34 Urine pH 6.5 (5-7) 06/24/24 18:34 Ur Specific [place] 1.015 (1.005-1.030) 06/24/24 18:34 Urine Protein 3+ (Negative) A 06/24/24 18:34 Urine Glucose (UA) 2+ (Normal) H 06/24/24 18:34 Urine Ketones Negative (Negative) 06/24/24 18:34 Urine Blood Trace (Negative) A 06/24/24 18:34 Urine Nitrate Negative (Negative) 06/24/24 18:34 Urine Bilirubin Negative (Negative) 06/24/24 18:34 Urine Urobilinogen 0.2 mg/dL (Negative) 06/24/24 18:34 Ur Leukocyte Esterase Negative (Negative) 06/24/24 18:34 Urine RBC 0-2 /hpf (0-2) 06/24/24 18:34 Urine WBC 0-5 /hpf (0-5) 06/24/24 18:34 Ur Squamous Epith Cells 0-5 /hpf (0-5) 06/24/24 18:34 Amorphous Sediment Not Reportable 06/24/24 18:34 Urine Bacteria None seen /hpf (NONE) 06/24/24 18:34 Hyaline Casts 0.81 /lpf 06/24/24 18:34 All radiology interpretation(s) finalized by discharge EKG Data EKG 1: I personally reviewed and interpreted this EKG as follows: EKG interpretation date: 06/24/24 EKG interpretation time: 17:33 Interpretation: nsr hr [address] elevation qrs 96 qtc 404 Discharge Plan Discharge Patient Disposition: Home Clinical Impression: Chronic kidney disease, Flank pain Condition: Stable Prescriptions: No Action metoprolol tartrate 25 mg tablet 50 mg PO BID@0900,2100 Qty: 180 1RF potassium chloride 20 mEq tablet,ER particles/crystals See Rx Instructions .ROUTE .COMPLEX Rx Instructions: TAKE TWO TABLETS BY MOUTH IN THE MORNING and ONE IN THE EVENING. Take with food. nifedipine 60 mg tablet extended release 24hr 60 mg PO DAILY Antacid Anti-Gas (ca carb-sim) 1,000-60 mg Tablet,Chewable 1 tab PO QID PRN (Reason: Indigestion) fenofibrate nanocrystallized 145 mg tablet 145 mg PO DAILY albuterol sulfate 90 mcg/actuation HFA aerosol inhaler 2 inh INHALATION Q4H PRN (Reason: shortness of breath or wheezing) Qty: 18 0RF hydrocodone-acetaminophen 5-325 mg tablet 1 tab PO Q4H PRN (Reason: pain) Qty: 10 0RF insulin lispro 100 unit/mL solution See Rx Instructions .ROUTE .COMPLEX Rx Instructions: Inject 7 units subq with meals if bs is below 200 BG, above 200 inject 12 units. rosuvastatin 40 mg Tablet 40 mg PO DAILY aspirin 81 mg Capsule 81 mg PO DAILY bumetanide 2 mg tablet 2 mg PO BIDAC Qty: 60 0RF hydralazine 100 mg tablet 100 mg PO TID Qty: 90 0RF Discharge Orders: Discharge ED (Routine); Ordered 06/24/24 Ordered By: Kevin Srinivasan Referrals: Jimmy Antonio FNP [Primary Care Provider] - 4-7 days Discharge Diet: Advance as tolerated Discharge Activity: Resume usual activity Patient Instructions: Chronic Kidney Disease (ED) Print Language: South African Coding Level of Care Code ED Developer [employer] for Joe Gallagher
[2024-06-24 17:45] LABS: Basophils # 0.1 10^3/uL (0.0-0.1); Basophils % 0.9 %; Eosinophils # 0.6 10^3/uL (0.0-0.8); Eosinophils % 10.4 %; Hematocrit 28.9 % (36-47); Lymphocytes # 1.2 10^3/uL (0.8-4.8); Lymphocytes % 22.3 %; Mean Corpuscular HGB Conc 31.5 g/dL (30-55); Mean Corpuscular Hemoglobin 26.8 pg (27-33); Mean Platelet Volume 10.2 fL (7.4-10.4); Monocytes # 0.4 10^3/uL (0.2-0.9); Monocytes % 7.5 %; Neutrophils # 3.21 10^3/uL (1.8-7.7); Neutrophils % 58.5 %; Nucleated Red Blood Cells % 0 %; Platelet Count 285 10^3/cmm (157-399); Red Cell Distribution Width 13.8 % (12.1-15.1); White Blood Count 5.48 10^3/uL (3.29-11.43)
[2024-06-24 17:56] LABS: Alanine Aminotransferase 16 U/L (0-33); Albumin Level 2.9 g/dL (3.5-5.2); Alkaline Phosphatase 48 U/L (35-105); Anion Gap 16.2 (5-19); Aspartate Amino Transferase 22 U/L (0-32); Blood Urea Nitrogen 52 mg/dL (6-20); Calcium 8.6 mg/dL (8.5-10.5); Carbon Dioxide 23 mmol/L (22-29); Chloride 104 mmol/L (98-107); Globulin 2.6 g/dL (1.3-4.6); Glomerular Filtration Rate 17.9 mL/min (90-130); Glucose 216 mg/dL (65-115); Lipase 42 U/L (13-60); Magnesium 1.9 mg/dL (1.7-2.3); Osmolality Calculated 309 mOsm/kg (285-295); Potassium 4.2 mmol/L (3.5-5.1); Sodium 139 mmol/L (136-145); Total Bilirubin 0.2 mg/dL (0.15-1.2); Total Protein 5.5 g/dL (6.6-8.7)
[2024-06-24 18:42] LABS: Bilirubin Urine Negative (Negative); Blood Urine Trace (Negative); Glucose Urine UA 2+ (Normal); Ketones Urine Negative (Negative); Leukocyte Esterase Urine Negative (Negative); Nitrate Urine Negative (Negative); Protein Urine 3+ (Negative); Specific Gravity, Urine 1.015 (1.005-1.030); Urine Appearance Clear (CLEAR); Urine Color Yellow (Yellow); Urobilinogen Urine 0.2 mg/dL (Negative); pH Urine 6.5 (5-7)
[2024-06-24 18:47] LABS: Add Urine Microscopic? YES; Bacteria Urine None Seen /hpf; Hyaline Casts Urine 0.81 /lpf; RBC Urine 0-2 /hpf (0-2); Squamous Epithelial Cell Urine 0-5 /hpf (0-5); WBC Urine 0-5 /hpf (0-5)
[2024-06-24 18:48] LABS: Add Urine Culture? No
[2024-06-24 19:26] VITALS: PULSE 72; RESP 18; O2SAT 94
[2024-06-24 19:38] VITALS: BP 180/96; PULSE 70; O2SAT 95
== END 2024-06-24 19:39 | disposition home or self-care (01) ==
PROVIDERS: Emergency Provider Emergency Medicine; PCP Nurse Practitioner
DX: R10.9 Unspecified abdominal pain (principal); E11.22 Type 2 diabetes mellitus with diabetic chronic kidney disease; I13.0 Hypertensive heart and chronic kidney disease with heart failure and stage 1 through stage 4 chronic kidney disease, or unspecified chronic kidney disease; N18.9 Chronic kidney disease, unspecified; I50.9 Heart failure, unspecified; Z79.82 Long term (current) use of aspirin
CPT/HCPCS: 36415; 71045; 74176; 80053; 81001; 83690; 83735; 85025; 93005; 99285

== ENCOUNTER 2024-06-27 15:29 | Emergency (ER) | payer MEDICAID, SELFPAY ==
[2024-06-27 15:33] VITALS: BP 169/83; PULSE 74; RESP 15; TEMP 36.8; O2SAT 95; BMI 31.9
--- NOTE | 2024-06-27 16:39 | W.ED.NAVMDI ---
HPI - Nausea/Vomiting/Diarrhea General: Chief complaint: Nausea/Vomiting/Diarrhea Stated complaint: n/v Time Seen by Provider: 06/27/24 16:09 Source: patient Mode of arrival: EMS Limitations: no limitations History of Present Illness: 49yo female presents to the emergency department via EMS for evaluation of nausea/vomiting/diarrhea that started this morning. Patient reports that she has had 4 episodes of vomiting and numerous episodes of diarrhea. States that she does have generalized abdominal cramping. States that she is not able to keep any fluids down due to the vomiting. Patient denies fever, cough, congestion, difficulty breathing, shortness of breath, known sick contacts. Associated nausea: Yes Associated symtoms: Reports nausea; Denies chest pain Related Data Home Medications ?Medication ?Instructions ?Recorded ?Confirmed aspirin 81 mg capsule 81 mg PO DAILY 03/10/24 06/21/24 insulin lispro 100 unit/mL See Rx Instructions .Route .COMPLEX 03/10/24 06/21/24 subcutaneous solution rosuvastatin 40 mg tablet 40 mg PO DAILY 03/10/24 06/21/24 calcium carbonate 1,000 1 tab PO QID PRN Indigestion 05/09/24 06/21/24 mg-simethicone 60 mg chewable tablet (Antacid Anti-Gas (calcium carb-simeth)) fenofibrate nanocrystallized 145 145 mg PO DAILY 05/09/24 06/21/24 mg tablet nifedipine 60 mg tablet,extended 60 mg PO DAILY 05/09/24 06/21/24 release 24 hr potassium chloride 20 mEq See Rx Instructions .Route .COMPLEX 05/09/24 06/21/24 tablet,extended release(part/cryst) Previous Rx's ?Medication ?Instructions ?Recorded metoprolol tartrate 25 mg tablet 50 mg (2 x 25 mg) PO BID@0900,2100 04/04/24 #180 tabs albuterol sulfate 90 mcg/actuation 2 inh inhalation Q4H PRN shortness 05/09/24 aerosol inhaler of breath or wheezing #18 grams hydrocodone 5 mg-acetaminophen 325 1 tab PO Q4H PRN pain #10 tabs 06/01/24 mg tablet bumetanide 2 mg tablet 2 mg PO BIDAC #60 tabs 06/12/24 hydralazine 100 mg tablet 100 mg PO TID #90 tabs 06/12/24 ondansetron 4 mg disintegrating 4 mg PO TID PRN nausea and 06/27/24 tablet vomiting #20 tabs Allergies Allergy/AdvReac Type Severity Reaction Status Date / Time Iodinated Contrast Media Allergy ALGY-Hives Verified 06/21/24 09:31 morphine Allergy ALGY-Hives Verified 06/21/24 09:31 Review of Systems Const: Denies: fever(s), chills or body aches Card: Denies: chest pain Resp: Denies: dyspnea GI: Reports: nausea, vomiting and diarrhea : Denies: flank pain PFSH ED PFSH: Medical History T2DM (type 2 diabetes mellitus) Congestive heart failure section wound seroma, Hypertension Diabetes Family History Father CAD (coronary artery disease) Social History Smoking and tobacco/nicotine status: never used tobacco/nicotine Physical Exam Const: COMMON NORMALS: no acute distress, patient oriented x3 and alert GENERAL APPEARANCE: cooperative ORIENTATION/CONSCIOUSNESS: Yes awake OTHER: Patient is sitting upright on the stretcher no acute distress. She is able to give history with no difficulty. She is interactive with exam appropriately. No family is at bedside HENMT: COMMON NORMALS: normocephalic, atraumatic and Normal external nose present HEAD & SCALP: normocephalic and atraumatic NOSE: Normal external nose present Neck/C-Spine: COMMON NORMALS: full ROM Resp: COMMON NORMALS: normal respiratory effort, No use of accessory muscles and clear to auscultation bilaterally AUSCULTATION: clear to auscultation bilaterally Cardio: COMMON NORMALS: regular rate RATE: regular rate GI: COMMON NORMALS: Soft to palpation PALPATION: Yes Soft to palpation Extremity: COMMON NORMALS: full ROM Neuro: COMMON NORMALS: patient oriented x3 SENSORIUM/ORIENTATION: Yes alert Psych: COMMON NORMALS: cooperative Course Vital Signs: Vital signs: Vital Signs Temperature 98.2 F 06/27/24 15:33 Pulse Rate 74 06/27/24 15:33 Respiratory Rate 15 06/27/24 15:33 Blood Pressure 169/83 06/27/24 15:33 Pulse Oximetry 95 06/27/24 15:33 Oxygen Delivery Me thod Room Air 06/27/24 15:33 MDM - Nausea/Vomiting/Diarrhea Medical Decision Making 49yo female comes to the emergency department via EMS for evaluation of nausea/vomiting/diarrhea that started this morning. Patient reports that she has had 4 episodes of vomiting and numerous episodes of diarrhea. States that she does have generalized abdominal cramping. States that she is not able to keep any fluids down due to the vomiting. Patient denies fever, cough, congestion, difficulty breathing, shortness of breath, known sick contacts. Patient is nontoxic in appearance. Vital signs are stable. No leukocytosis, white blood cell count noted to be 5.88. Hemoglobin is 9.5, up from 9.1 on 06/24/2024. Chronic kidney disease, creatinine is noted to be 2.6, improved from patient's previous of 2.8 on 06/24/2024. UA with 2+ glucose and 3+ proteins, otherwise unremarkable. Patient still complaining of nausea after ondansetron. Patient did receive metoclopramide, diphenhydramine, and 250 mL normal saline bolus. Patient had no further vomiting. Discussed that labs are grossly unremarkable and this is likely a viral illness. Ondansetron prescribed. Recommend beginning with clear liquids and slowly increasing as tolerated. Advised follow-up with primary care, call Monday with an update of symptoms and to discuss to recheck. Return precautions provided. Patient states understanding and has no further questions or concerns at this time. Differential Diagnosis Likely food poisoning, gastroenteritis and dehydration Lab Data I reviewed the patient's lab results. 06/27/24 16:57 06/27/24 16:57 Laboratory Results WBC 5.88 10^3/uL (3.29-11.43) 06/27/24 16:57 RBC 3.54 10^6/uL (3.85-5.65) L 06/27/24 16:57 Hgb 9.50 g/dL (11.27-16.99) L 06/27/24 16:57 Hct 31.4 % (36-47) L 06/27/24 16:57 MCV 88.7 fl (85-98) 06/27/24 16:57 MCH 26.8 pg (27-33) L 06/27/24 16:57 MCHC 30.3 g/dL (30-55) 06/27/24 16:57 RDW 13.7 % (12.1-15.1) 06/27/24 16:57 Plt Count 238 10^3/cmm (157-399) 06/27/24 16:57 MPV 10.7 fL (7.4-10.4) H 06/27/24 16:57 Neut % (Auto) 71.1 % 06/27/24 16:57 Lymph % (Auto) 16.3 % 06/27/24 16:57 [place] % (Auto) 4.3 % 06/27/24 16:57 Eos % (Auto) 7.0 % 06/27/24 16:57 Baso % (Auto) 1.0 % 06/27/24 16:57 Neut # (Auto) 4.18 10^3/uL (1.8-7.7) 06/27/24 16:57 Lymph # (Auto) 1.0 10^3/uL (0.8-4.8) 06/27/24 16:57 [place] # (Auto) 0.3 10^3/uL (0.2-0.9) 06/27/24 16:57 Eos # (Auto) 0.4 10^3/uL (0.0-0.8) 06/27/24 16:57 Baso # (Auto) 0.1 10^3/uL (0.0-0.1) 06/27/24 16:57 Nucleated RBC % (auto) 0 % 06/27/24 16:57 Nucleated RBCs # 0.0 /100WBC 06/27/24 16:57 Sodium 139 mmol/L (136-145) 06/27/24 16:57 Potassium 4.1 mmol/L (3.5-5.1) 06/27/24 16:57 Chloride 107 mmol/L (98-107) 06/27/24 16:57 Carbon Dioxide 20 mmol/L (22-29) L 06/27/24 16:57 Anion Gap 16.1 (5-19) 06/27/24 16:57 BUN 47 mg/dL (6-20) H 06/27/24 16:57 Creatinine 2.6 mg/dL (0.5-0.9) H 06/27/24 16:57 GFR Calculation 19.5 mL/min (90-130) L 06/27/24 16:57 Glucose 150 mg/dL (65-115) H 06/27/24 16:57 Calculated Osmolality 303 mOsm/kg (285-295) H 06/27/24 16:57 Calcium 8.7 mg/dL (8.5-10.5) 06/27/24 16:57 Total Bilirubin 0.2 mg/dL (0.15-1.2) 06/27/24 16:57 AST 40 U/L (0-32) H 06/27/24 16:57 ALT 24 U/L (0-33) 06/27/24 16:57 Alkaline Phosphatase 47 U/L (35-105) 06/27/24 16:57 Total Protein 5.7 g/dL (6.6-8.7) L 06/27/24 16:57 Albumin 2.7 g/dL (3.5-5.2) L 06/27/24 16:57 Globulin 3.0 g/dL (1.3-4.6) 06/27/24 16:57 Lipase 36 U/L (13-60) 06/27/24 16:57 Urine Color Yellow (Yellow) 06/27/24 17:14 Urine Appearance Error (CLEAR) A 06/27/24 17:14 Urine pH 6.0 (5-7) 06/27/24 17:14 Ur Specific [place] 1.014 (1.005-1.030) 06/27/24 17:14 Urine Protein 3+ (Negative) A 06/27/24 17:14 Urine Glucose (UA) 2+ (Normal) H 06/27/24 17:14 Urine Ketones Negative (Negative) 06/27/24 17:14 Urine Blood Trace (Negative) A 06/27/24 17:14 Urine Nitrate Negative (Negative) 06/27/24 17:14 Urine Bilirubin Negative (Negative) 06/27/24 17:14 Urine Urobilinogen 0.2 mg/dL (Negative) 06/27/24 17:14 Ur Leukocyte Esterase Negative (Negative) 06/27/24 17:14 Urine RBC 0-2 /hpf (0-2) 06/27/24 17:14 Urine WBC 0-5 /hpf (0-5) 06/27/24 17:14 Ur Squamous Epith Cells 6-10 /hpf (0-5) 06/27/24 17:14 Amorphous Sediment Not Reportable 06/27/24 17:14 Urine Bacteria Trace /hpf (NONE) 06/27/24 17:14 Hyaline Casts 1.21 /lpf 06/27/24 17:14 No radiology studies performed this visit Discharge Plan Discharge Patient Disposition: Home Clinical Impression: Gastroenteritis Condition: Stable Prescriptions: New ondansetron 4 mg tablet,disintegrating 4 mg PO TID PRN (Reason: nausea and vomiting) Qty: 20 0RF No Action metoprolol tartrate 25 mg tablet 50 mg PO BID@0900,2100 Qty: 180 1RF potassium chloride 20 mEq tablet,ER particles/crystals See Rx Instructions .ROUTE .COMPLEX Rx Instructions: TAKE TWO TABLETS BY MOUTH IN THE MORNING and ONE IN THE EVENING. Take with food. nifedipine 60 mg tablet extended release 24hr 60 mg PO DAILY Antacid Anti-Gas (ca carb-sim) 1,000-60 mg Tablet,Chewable 1 tab PO QID PRN (Reason: Indigestion) fenofibrate nanocrystallized 145 mg tablet 145 mg PO DAILY albuterol sulfate 90 mcg/actuation HFA aerosol inhaler 2 inh INHALATION Q4H PRN (Reason: shortness of breath or wheezing) Qty: 18 0RF hydrocodone-acetaminophen 5-325 mg tablet 1 tab PO Q4H PRN (Reason: pain) Qty: 10 0RF insulin lispro 100 unit/mL solution See Rx Instructions .ROUTE .COMPLEX Rx Instructions: Inject 7 units subq with meals if bs is below 200 BG, above 200 inject 12 units. rosuvastatin 40 mg Tablet 40 mg PO DAILY aspirin 81 mg Capsule 81 mg PO DAILY bumetanide 2 mg tablet 2 mg PO BIDAC Qty: 60 0RF hydralazine 100 mg tablet 100 mg PO TID Qty: 90 0RF Discharge Orders: Discharge ED (Routine); Ordered 06/27/24 Ordered By: Aamir Cantu Referrals: Jimmy Antonio FNP [Primary Care Provider] - Discharge Diet: Advance as tolerated and Clear Liquid Discharge Activity: Increase activity as tolerated Patient Instructions: Gastroenteritis (ED) Activity Restrictions/Additional Instructions: No acute concerning abnormalities were noted on your labs today This is likely a viral illness that is typically self-limiting Ondansetron has been sent to the pharmacy to help with nausea/vomiting Begin a clear liquid diet and slowly increase to crackers and toast. Once you are able to tolerate crackers and toast, slowly increase to normal foods. Avoid fatty and greasy foods as they will likely make you begin vomiting again Follow-up with primary care, call Monday with an update of symptoms and to discuss to recheck Return to the emergency department if any rapid worsening symptoms, onset of fever associated with worsening, and as needed. Print Language: Guinean Coding Level of Care Code ED Plant Cytologist for Joe Gallagher
[2024-06-27 17:09] LABS: Basophils # 0.1 10^3/uL (0.0-0.1); Eosinophils # 0.4 10^3/uL (0.0-0.8); Hematocrit 31.4 % (36-47); Lymphocytes % 16.3 %; Mean Corpuscular HGB Conc 30.3 g/dL (30-55); Mean Corpuscular Hemoglobin 26.8 pg (27-33); Mean Corpuscular Volume 88.7 fl (85-98); Mean Platelet Volume 10.7 fL (7.4-10.4); Monocytes # 0.3 10^3/uL (0.2-0.9); Monocytes % 4.3 %; Neutrophils # 4.18 10^3/uL (1.8-7.7); Neutrophils % 71.1 %; Nucleated Red Blood Cells % 0 %; Platelet Count 238 10^3/cmm (157-399); Red Blood Count 3.54 10^6/uL (3.85-5.65); Red Cell Distribution Width 13.7 % (12.1-15.1); White Blood Count 5.88 10^3/uL (3.29-11.43)
[2024-06-27 17:32] LABS: Alanine Aminotransferase 24 U/L (0-33); Albumin Level 2.7 g/dL (3.5-5.2); Alkaline Phosphatase 47 U/L (35-105); Aspartate Amino Transferase 40 U/L (0-32); Blood Urea Nitrogen 47 mg/dL (6-20); Calcium 8.7 mg/dL (8.5-10.5); Carbon Dioxide 20 mmol/L (22-29); Chloride 107 mmol/L (98-107); Glomerular Filtration Rate 19.5 mL/min (90-130); Glucose 150 mg/dL (65-115); Lipase 36 U/L (13-60); Osmolality Calculated 303 mOsm/kg (285-295); Sodium 139 mmol/L (136-145); Total Bilirubin 0.2 mg/dL (0.15-1.2); Total Protein 5.7 g/dL (6.6-8.7)
[2024-06-27] MEDS: ondansetron 2 mg/ML SDV 2 mL 4 MG IVP (17:33)
[2024-06-27] MEDS: sodium chloride 0.9% 500 ML 999 ML IV (17:33)
[2024-06-27 17:36] LABS: Anion Gap 16.1 (5-19); Potassium 4.1 mmol/L (3.5-5.1)
[2024-06-27 17:56] LABS: Bacteria Urine Trace /hpf; Hyaline Casts Urine 1.21 /lpf; RBC Urine 0-2 /hpf (0-2); WBC Urine 0-5 /hpf (0-5)
[2024-06-27 18:11] LABS: Add Urine Microscopic? YES; Bilirubin Urine Negative (Negative); Blood Urine Trace (Negative); Glucose Urine UA 2+ (Normal); Ketones Urine Negative (Negative); Leukocyte Esterase Urine Negative (Negative); Nitrate Urine Negative (Negative); Protein Urine 3+ (Negative); Specific Gravity, Urine 1.014 (1.005-1.030); Urine Appearance Error (CLEAR); Urine Color Yellow (Yellow); Urobilinogen Urine 0.2 mg/dL (Negative)
[2024-06-27 18:13] LABS: Add Urine Culture? No
[2024-06-27] MEDS: sodium chloride 0.9% 250 ML IV (18:33)
[2024-06-27] MEDS: metoclopramide 5 mg/mL SDV 2 mL 10 MG XX (18:34)
[2024-06-27] MEDS: diphenhydrAMINE 50 mg/mL SDV 1mL 12.5 MG IVP (18:34)
[2024-06-27 19:49] VITALS: BP 139/93; PULSE 82; O2SAT 93
== END 2024-06-27 19:51 | disposition home or self-care (01) ==
PROVIDERS: Emergency Medicine; Emergency Provider Nurse Practitioner; PCP Nurse Practitioner
DX: K52.9 Noninfective gastroenteritis and colitis, unspecified (principal); Z79.82 Long term (current) use of aspirin; E11.9 Type 2 diabetes mellitus without complications; I11.0 Hypertensive heart disease with heart failure; I50.9 Heart failure, unspecified
CPT/HCPCS: 36415; 80053; 81001; 83690; 85025; 96361; 96374; 96375; 99284; J1200; J2405; J2765; J7040; J7050

== ENCOUNTER → 2024-06-28 09:29 | Outpatient (BNVA) | payer MEDICAID, SELFPAY | PROVIDERS: PCP Nurse Practitioner; Visit Provider Nurse Practitioner Family | DX: I11.0 Hypertensive heart disease with heart failure (principal); I50.9 Heart failure, unspecified; I25.2 Old myocardial infarction; J90 Pleural effusion, not elsewhere classified; R06.01 Orthopnea | CPT/HCPCS: 99213 ==

== ENCOUNTER → 2024-08-30 08:53 | Outpatient (BNVA) | payer MEDICAID, SELFPAY | PROVIDERS: PCP Nurse Practitioner; Visit Provider Nurse Practitioner Family | DX: I50.33 Acute on chronic diastolic (congestive) heart failure (principal); Z79.82 Long term (current) use of aspirin; I25.2 Old myocardial infarction | CPT/HCPCS: 99213 ==

== ENCOUNTER 2024-10-02 18:57 | Emergency (ER) | payer MEDICAID, SELFPAY ==
--- OUTSIDE RECORDS SUMMARY | 2024-09-16 04:56 | XMS_ITS ---
Author Organization [facility] Address [address] [place] [address] Care Team Providers Care Training Personnel Supervisor Name Role Phone Jimmy Taylor Primary Care Provider Kim Zamora [phone] REASON FOR VISIT urine teesting Encounters Encounter Location Date Provider Diagnosis [facility] [address] [place] [address] [address] [place] [address] 09/16/2024 Kim Morrow Plan Of Treatment Next Appt Details Provider Name:Mendel Velasquez, 10/03/2024 02:00:00 PM, [address] [place] [address] [address], [place], [address], Provider Name:Kim warner, 11/14/2024 02:30:00 PM, [address] [place] [address] [address], [place], [address], Progress Notes * ALEXYS SANDHU LDOB:1975 (49 yo F)Acc No.[id number]:09/16/2024 Patient: SHANTELL PUENTEHORACIO Barton :1975 A ge:49 Y S ex:Female Address:[address] [place] [phone] Subjective: * Chief Complaints: * U rine teesting * Medical History: * Surgical History: * Hospitalization/Major Diagno stic Procedure: * Medications: Objective: * Vitals: * Physical Examination: Assessment: Plan: * Treatment: * Procedure Codes: * * Date:
--- OUTSIDE RECORDS SUMMARY | 2024-10-01 04:44 | XMS_ITS ---
Author Organization [facility] Address [address] [facility] [place] [address] Care Team Providers Care Measuring Machine Operator Name Role Phone Jimmy Taylor Primary Care Provider UnavailKim Smith [phone] REASON FOR VISIT Jardiance Medications Medication SIG (Take, Route, Fr equency, Duration) Notes Start Date End Date Status Jardiance 10 MG 1 tablet Orally Once a day for 30 days 10/01/2024 Active Encounters Encounter Location Date Provider Diagnosis [facility] [address] [place] [address] [address] [place] [address] 10/01/2024 Kim Morrow Plan Of Treatment Medication Medication Name Sig Start Date Stop Date Notes Jardiance 10 MG 1 tablet Orally Once a day for 30 days 04/2024 Next Appt Details Provider Name:Mendel Velasquez, 10/03/2024 02:00:00 PM, [address] [place] [address] [address], [place], [address], Provider Name:Kim warner, 11/14/2024 02:30:00 PM, [address] [place] [address] [address], [place], [address], Progress Notes * ALEXYS SANDHU LDOB:1975 (49 yo F)Acc No.[id number]:10/01/2024 Patient: Will ALEXYS SANCHEZ :1975 A ge:49 Y S ex:Female Address:[address] [place] [phone] * Refills Start Jardiance Tablet, 10 MG, Orally, 30, 1 tablet, Once a day, 30 days, Refills=11 Subjective: * Chief Complaints: * J ardiance * Medical History: * Surgical History: * Hospitalization/Major Diagno stic Procedure: * Medications: Objective: * Vitals: * Physical Examination: Assessment: Plan: * Treatment: * Procedure Codes: * true * Date: Generated for Maureen amaral/Halina/eTransmitting on: 0 10/02/2024 07:02 PM CDT
--- OUTSIDE RECORDS SUMMARY | 2024-10-01 06:30 | XMS_ITS ---
Author Organization [facility] Address [address] [place] [address] Care Team Providers Care Resource Teacher Name Role Phone Jimmy Taylor Primary Care Provider UnavailKim Smith Unavailable [phone] Mendel Velasquez [phone] Encounters Encounter Location Date Provider Diagnosis [facility] [address] [place] [address] [place] [address] 10/01/2024 Mendel Velasquez Pleural effusion J90 Assessments Encounter Date Diagnosis (ICD Code) Assessment Notes Treatment Notes Treatment Clinical Notes Section Notes 10/01/2024 Pleural effusion (ICD-10 - J90) 10/01/2024 Other I, Mikala Granados, am scribing for, and in the presence of Dr. Mendel Velasquez. I, Dr. Mendel Velasquez, personally performed the services described in this documentation, as scribed by Mikala Granados in my presence, and it is both accurate and complete. Plan Of Treatment Next Appt Details Provider Name:Mendel Velasquez, 10/03/2024 02:00:00 PM, [address] [place] [address] [place], [address], Provider Name:Kim warner, 11/14/2024 02:30:00 PM, [address] [place] [address] [address] [place], [address], Progress Notes * ALEXYS SANDHU LDOB:1975 (49 yo F)Acc No.[id number]:10/01/2024 Progress Notes Patient: ALEXYS PUENTE Provider: Melina Velasquez MD :1975 A ge:49 Y S ex:Female Date:10/01/2024 Address:[address] [place], [place] [phone] Pcp:SHELLEY Mackay Subjective: * Chief Complaints: * * HPI: P rovider Note: -New patient referred by Jimmy Antonio for evaluation and management of pleural effusion -CXR in PACS. * ROS: Gil maravilla of systems of chart has been reviewed and scanned in by me. * Medical History: Objective: * Vitals: Assessment: * Assessment: 1. P leural effusion - J90 (Primary) Plan: * Treatment: Forms: Care Plan: * Problems: * Billing Information: * Visit Code: * Procedure Codes: * Electronic signature of Annie Velasquez MD on 10/02/2024 at 07:02 PM CDT Sign off status: Pending * Provider: Melina Velasquez MD Date: 10/01/2024 Generated for Maureen amaral/Halina/Ilanitting on: 10/02/2024 07:02 PM CDT History and Physical Notes * HPI (History of Present Illness) Category Sub-Category Detail Notes Category Not es Provider Note -New patient referred by Jimmy Antonio for evaluation and management of pleural effusion -CXR in PACS
[2024-10-02 18:58] VITALS: BP 170/92; PULSE 89; RESP 16; TEMP 36.7; O2SAT 99; BMI 28.2
--- OUTSIDE RECORDS SUMMARY | 2024-10-02 19:02 | XMS_ITS | Patient Health Record ---
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 Role Phone Jimmy Taylor Primary Care Provider UnavailKim Smith Unavailable [phone] Phill Feliciano Unavailable [phone] Mendel Velasquez Unavailable [phone] Geronimo Alexandre Unavailable [phone] Opal Will Unavailable [phone] Allergies Allergen (clinical drug ingredient) Drug/Non Drug Allergy documented on EMR Reaction Allergy Type Onset Date Status Iodine rash and itching Drug Allergy Active morphine Morphine Sulfate hives Drug Allergy Active exenatide Exenatide , knot (qualifie r value) , Cutaneous eruption (morphologic abnormality) , Drug Allergy Active Influenza H5N1 Split Adjuvanted , Drug Allergy Active Results Component Value Reference Range Notes CT Guidance for Needle Biops [id number] Reviewed date:09/11/2024 11:28:24 AM Interpretation: Performing Lab: Notes/Report: [email or web address]=[id number] Schedule Confirmation Reviewed date:10/23/2023 09:22:32 AM Interpretation: Performing Lab: Notes/Report: CT Cardiac Scoring Diagnostic Schedule Confirmation Reviewed date:12/01/2023 08:15:58 AM Interpretation: Performing Lab: Notes/Report: CT Cardiac Scoring Diagnostic Prothrombin Time [id number] Reviewed date:09/11/2024 11:28:24 AM Interpretation: Performing Lab: Notes/Report: Diagnosis Description: Chronic kidney disease, stage 2 (mild) 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 Diagnosis Description: Hemorrhagic condition, unspecified Diagnosis Description: Anemia in chronic kidney disease Diagnosis Description: Chronic kidney disease, unspecified ProTime 10.6 9.1-11.9 SEC Normal Range: 9.1-11.9 INR 1.00 .90-1.20 Therapeutic Range: 2.0-3.0 Therapaeutic Range for heart valve replacement: 2.5-3.50 CBC w\ Auto Diff 79802 Reviewed date:09/11/2024 11:28:24 AM Interpretation: Performing Lab: Notes/Report: Diagnosis Description: Chronic kidney disease, stage 2 (mild) Diagnosis Description: nursing home (current) use of aspirin Diagnosis Description: Hemorrhagic condition, unspecified Diagnosis Description: Anemia in chronic kidney disease Diagnosis Description: Chronic kidney disease, unspecified WBC 9.7 4.5-11.0 X10'3 RBC 3.88 4.00-5.20 X10'6 Hgb 10.9 12.0-16.0 G/DL Hct 32.5 36.0-46.0 % MCV 83.8 80.0-100.0 FL MCH 28.1 27.0-31.0 PG MCHC 33.5 31.0-37.0 G/DL Platelet 358 150-400 X10'3 RDW-SD 44.6 35.0-49.0 FL RDW-CV 14.5 12.2-15.6 % MPV 9.8 9.2-12.0 FL Neutro Auto% 59.2 40.0-70.0 % Lymph Auto% 25.3 22.0-44.0 % Piute Auto% 5.7 3.0-7.0 % Eos Auto% 8.6 2.0-4.0 % Baso Auto% 1.0 0.0-1.0 % Imm Gran% .2 .0-.4 % Neutro Abs 5.74 .80-7.70 Absolute Neutrophil Count 5740 Lymph Abs 2.45 .10-4.10 Piute Abs .55 .20-1.00 Eos Abs .83 .00-.40 Baso Abs .10 .00-.20 Imm Gran Abs .02 .00-.10 NRBC# .00 .00-.20 X10'3 NRBC% .00 .00-.20 /100 int act WBC's Partial Thromboplastin Time 98101 Reviewed date:09/11/2024 11:28:24 AM Interpretation: Performing Lab: Notes/Report: Diagnosis Description: Chronic kidney disease, stage 2 (mild) Diagnosis Description: nursing home (current) use of aspirin Diagnosis Description: Hemorrhagic condition, unspecified Diagnosis Description: Anemia in chronic kidney disease Diagnosis Description: Chronic kidney disease, unspecified PTT 25.1 22.6-31.8 SEC Therapeutic Range: 60-100. Critical Value Starting at > 100. CT Guidance for Needle Biops [id number] Reviewed date:09/11/2024 11:28:24 AM Interpretation:appt 09/06/24 Performing Lab: Notes/Report: See Below For Report CT Guidance for Needle Biopsy-Renal Read See Below For Report Schedule Confirmation Reviewed date:08/07/2024 12:59:17 PM Interpretation: Performing Lab: Notes/Report: CT Guidance for Needle Biopsy-Renal Schedule Confirmation Reviewed date:09/11/2024 11:28:24 AM Interpretation: Performing Lab: Notes/Report: CT Guidance for Needle Biopsy-Renal ABORh 12248, 10635 Reviewed date:09/04/2024 05:03:10 PM Interpretation: Performing Lab: Notes/Report: ABO/Rh Interp A POS Antibody Screen 57120 Reviewed date:09/04/2024 05:03:10 PM Interpretation: Performing Lab: Notes/Report: Blood Bank ID [id number] ABSC Interp Negative CBC w\o Diff 39447 Reviewed date:09/04/2024 05:03:10 PM Interpretation: Performing Lab: Notes/Report: WBC 8.9 4.5-11.0 X10'3 RBC 3.47 4.00-5.20 X10'6 Hgb 9.4 12.0-16.0 G/DL Hct 28.2 36.0-46.0 % MCV 81.3 80.0-100.0 FL MCH 27.1 27.0-31.0 PG MCHC 33.3 31.0-37.0 G/DL Platelet 289 150-400 X10'3 RDW-SD 41.7 35.0-49.0 FL RDW-CV 14.1 12.2-15.6 % MPV 10.5 9.2-12.0 FL PRBC-LR--[id number] Reviewed date:09/04/2024 05:03:10 PM Interpretation: Performing Lab: Notes/Report: Number of Units 2 Product Type Blood Product Crossmatch--[id number] Reviewed date:09/04/2024 05:03:10 PM Interpretation: Performing Lab: Notes/Report: Blood Bank ID [id number] Blood Product Notification niki Flores IS 0+ XM Interp Compatible IS 0+ XM Interp Compatible BB ABORH-73803,[id number] Reviewed date:09/04/2024 05:03:10 PM Interpretation: Performing Lab: Notes/Report: PRATIK ABORh Interp A POS CT Abdomen w/o Contrast-7415 0 Reviewed date:09/04/2024 05:03:10 PM Interpretation: Performing Lab: Notes/Report: [id number]=iSite CBC w\o Diff 65499 Reviewed date:09/04/2024 05:03:10 PM Interpretation: Performing Lab: Notes/Report: WBC 8.8 4.5-11.0 X10'3 RBC 3.18 4.00-5.20 X10'6 Hgb 8.8 12.0-16.0 G/DL Hct 26.6 36.0-46.0 % MCV 83.6 80.0-100.0 FL MCH 27.7 27.0-31.0 PG MCHC 33.1 31.0-37.0 G/DL Platelet 270 150-400 X10'3 RDW-SD 44.4 35.0-49.0 FL RDW-CV 14.2 12.2-15.6 % MPV 10.2 9.2-12.[address] Abdomen w/o Contrast-7415 0 Reviewed date:09/04/2024 05:03:10 PM Interpretation: Performing Lab: Notes/Report: See Below For Report CT Abdomen w/o Contrast Read See Below For Report Magnesium (B) 25004 Reviewed date:09/04/2024 05:03:10 PM Interpretation: Performing Lab: Notes/Report: Magnesium 1.8 1.8-2.4 MG/DL Phosphorus (B) 09402 Reviewed date:09/04/2024 05:03:10 PM Interpretation: Performing Lab: Notes/Report: Phos 4.7 2.4-5.1 MG/DL Creatinine (U) 68222 Reviewed date:08/01/2024 07:55:26 AM Interpretation: Performing Lab: Notes/Report: Diagnosis Description: Proteinuria, unspecified Ur Creat 50.9 29.0-226.0 Protein (U) Random 35787 Reviewed date:08/01/2024 07:55:26 AM Interpretation: Performing Lab: Notes/Report: Diagnosis Description: Proteinuria, unspecified Ur Prot 757.90 .00-12.00 MG/DL Culture Urine 50060 Reviewed date:08/06/2024 04:46:50 PM Interpretation: Performing Lab: Notes/Report: Culture Urine ALEXYS Rosenthal Culture Urine t: Culture Urine Culture Urine Accessio [id number] Culture Urine n: Culture Urine Microbiology Culture Urine PROCEDURE: Culture Urine [O1] Culture Urine SOURCE: Urine BODY SITE: Culture Urine COLLECTED DATE/TIME: 07/31/2024 14:43 CDT RECEIVED DATE/TIME: 07/31/2024 19:33 CDT Culture Urine START DATE/TIME: 07/31/2024 19:34 CDT FREE TEXT SOURCE: Culture Urine FINAL REPORT Culture Urine Final Report [] Culture Urine Verified Date/Time: 08/02/2024 05:25 CDT Culture Urine <10,000 cfu/ml Mixed Superficial Ana Culture Urine Order Comments Culture Urine O1: Culture Urine (Culture Urine 14948) Culture Urine Diagnosis Descriptio n: Proteinuria, unspecified UA Without Micro-Auto, [place] - [address] Reviewed date:08/01/2024 09:03:23 AM Interpretation: Performing Lab: Notes/Report: Color Yellow Clarity Clear Glucose 2+ Bili - Ketones - Sp Centrahoma 1.015 Blood - pH 6.0 Protein 3+ Urobili - Nitrites - Leukocytes - Reason For Referral Reason Pleural Effusion B [facility] Imaging 09/23: 1 wk per Ron scheduled 10/01/24 @11:30 am Diagnosis 1 Pleural effusion (J9 0) Referring Provider First Name Jimmy Referring Provider Last Name Paco Referring Provider Speciality Family Med icine Referred Organization [facility] Referred Provider Mendel Velasquez Referred Address [address] [place] [address] [address],[place], [place],[address] Referred Provider Specialty Pulmonary Di seases General Notes Aleja Downs 2024 08:56:46 AM >scheduled 10/01/24 @ 11:30 Referral Priority Stat Medications Medication SIG (Take, Route, Frequency, Duration) Notes Start Date End Date Status Bumetanide 2 MG TAKE ONE TABLET BY M OUTH TWICE DAILY BEFORE meals Oral for 30 Days Active Aspirin 81 MG 1 capsule Orally Onc e a day Active hydrALAZINE HCl 100 MG TAKE ONE TABLET B Y MOUTH THREE TIMES DAILY Oral for 30 Days Active NIFEdipine ER Osmotic Release 60 MG take one tablet by mouth every day Oral for 30 Days Active Fenofibrate 145 MG take one tablet by m outh every day Oral for 30 Days Active Furosemide 20 MG TAKE ONE TABLET BY M OUTH TWICE DAILY Oral for 30 Days Active Jardiance 10 MG 1 tablet Orally Once a day for 30 days 10/01/2024 Active Pioglitazone HCl 30 MG take one tablet b y mouth every day Oral for 30 Days Active Rosuvastatin Calcium 40 MG take one tabl et by mouth every day Oral for 30 Days Active Immunizations Vaccine Route Administration Date Status Comme nts Flucelvax Quadrivalent Pres Free Unknown 04/01/2021 Ref used Influenza (whole), CPT 76101 Inactive Unknown 11/26/2018 Administered Influenza (whole), CPT 36793 Inactive Unknown 02/25/2019 Administered Social History Tobacco Use: Social History Observation Description Date Details (start date - stop date) Never Smoker NA - NA xTobacco Use/Smoking Question Answer Notes Are you a nonsmoker Tobacco use other than smoking: Question Answer Notes Are you an other tobacco user? No PHQ-9 Question Answer Notes Little interest or pleasure in doing things More than half the days Feeling down, depressed, or hopeless Several day s Trouble falling or staying asleep, or sleeping t oo much Nearly every day Feeling tired or having little energy Nearly trent ry day Poor appetite or overeating Not at all Feeling bad about yourself, or that you are a failure, or have let yourself or your family down Several days Trouble concentrating on thi ngs, such as reading the newspaper or watching television Several days Moving or speaking so slowly that other people could have noticed. Or the opposite ? being so fidgety or restless that you have been moving around a lot more than usual Several days Thoughts that you would be b joi off , or of hurting yourself in some way Not at all Total Score 12 Interpretation Moderate Depression Problems Problem Type SNOMED Code ICD Code Onset Dates Problem Status W/U Status Risk Notes Problem 479790124 Anemia in chroni c kidney disease (D63.1) Active confirmed Problem 39031242 Type 2 diabetes mellitus with diabetic chronic kidney disease (E11.22) Active confirmed Problem Mixed hyperlipidemia (983763009) Mixed hyperlipidemia (E78.2) Active confirmed Problem 34913486 Hypercalcemia (E83.52) Active confirmed Problem 645041832731231 Hypertensive chronic kidney disease with stage 1 through stage 4 chronic kidney disease, or unspecified chronic kidney disease (I12.9) Active confirmed Problem 276179009 Chronic kidney disease, stage 2 (mild) (N18.2) Active confirmed Problem 685214030 Chronic kidney disease, unspecified (N18.9) Active confirmed Problem 38189209 Essential hypertension (I10) Active confirmed Problem Dyspnea (381299722) SOB (shortness of breath) (R06.02) Active confirmed Problem 86471623 Proteinuria, unspecified type (R80.9) Active confirmed Problem Hyperglycemia due to type 2 diabetes mellitus (976410472756873) Type 2 diabetes mellitus with hyperglycemia, without long-term current use of insulin (E11.65) Active confirmed Problem Heart murmur (41764330) Murmur, cardiac (R01.1) Active confirmed Problem 602148370 Chronic systolic congestive heart failure (I50.22) Active confirmed Problem Hyperlipidaemia (95683278) Hyperlipemia (E78.5) Active confirmed Problem Irregular heart beat (141118800) Irregular heart beat (I49.9) Active confirmed Problem 612205132 Stage 2 chronic kidney disease (N18.2) Active confirmed Problem Palpitations (12185000) Palpitation (R00.2) Active confirmed Problem Chronic kidney disease (463239817) CKD (chronic kidney disease) (N18.9) Active confirmed Problem Chest pain (93739792) Chest pain (R07.9) Active confirmed Problem 30683783 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) Active confirmed Problem Heart failure with reduced ejection fraction (874409488) Heart failure with reduced ejection fraction (I50.20) Active confirmed Problem 431105820016550 Perimenopause (N95.1) Active confirmed Problem 951336192 Bleeds easily (D69.9) Active confirmed Vital Signs Heart Rate 81 /min 09/06/2024 Temperature 97.4 degrees Fahrenheit 09/06/2024 Height-cm 167.64 cm 09/06/2024 Oximetry 97 % 09/06/2024 Blood pressure diastolic 64 mm Hg 09/06/2024 Weight-kg 80.9 kg 09/06/2024 Height 66 in 09/06/2024 Blood pressure systolic 120 mm Hg 09/06/2024 Weight 178.35 lbs 09/06/2024 BMI 28.78 kg/m2 09/06/2024 Encounters Encounter Location Date Provider Diagnosis [facility] [address] [place] [address], [place] [address] 10/20/2023 Geronimo Alexandre SOB (shortness of breath) R06.02 ; Heart failure with reduced ejection fraction I50.20 ; Palpitation R00.2 ; Irregular heart beat I49.9 ; Essential hypertension I10 ; Hyperlipemia E78.5 ; Type 2 diabetes mellitus without complications E11.9 and CKD (chronic kidney disease) N18.9 [facility] [address] [place] [address] [place] [address] 07/31/2024 Kim Morrow Proteinuria, unspecified type R80.9 ; CLINT (acute kidney injury) N17.9 ; Essential hypertension I10 ; Anemia in chronic kidney disease D63.1 ; Type 2 diabetes with nephropathy E11.21 and Chronic systolic congestive heart failure I50.22 [facility] [address] [place] [address] 09/06/2024 Kim Morrow CLINT (acute kidney injury) N17.9 ; Proteinuria, unspecified type R80.9 ; Essential hypertension I10 ; Anemia in chronic kidney disease D63.1 ; Type 2 diabetes with nephropathy E11.21 and Chronic systolic congestive heart failure I50.22 [facility] [address] [place] [address] 09/16/2024 Kim Morrow [facility] [address] [place] [address], [place] [address] 10/12/2023 Geronimo Alexandre [facility] [address] [place] [address], [place] [address] 10/31/2023 Clintnyranjana Perdueshi [facility] [address] [place] [address] 01/26/2024 [facility] [address] [place] [address] 03/12/2024 Clintnyranjana Perdueshi [facility] [address] [place] [address] [address] [place] [address] 08/01/2024 Kim Morrow [facility] [address] [place] [address] [address] [place] [address] 08/05/2024 Kim Morrow Stage 2 chronic kidney disease N18.2 [facility] [address] [place] [address] [address] [place] [address] 08/06/2024 Kim Morrow Stage 2 chronic kidney disease N18.2 ; Long-term use of aspirin therapy Z79.82 ; Bleeds easily D69.9 ; Anemia in chronic kidney disease D63.1 and Chronic kidney disease, unspecified N18.9 [facility] [address] [place] [address] [address] [place] [address] 08/07/2024 Kim Morrow [facility] [address] [place] [address] [address] [place] [address] 08/15/2024 Kim Johnsonminh [facility] [address] [place] [address] [address] [place] [address] 09/03/2024 Kim Morrow [facility] [address] [place] [address] [address] [place] [address] 09/05/2024 Phill Feliciano [facility] [address] [place] [address] [address] [place] [address] 09/06/2024 Kim Johnsonminh [facility] [address] [place] [address] [address] [place] [address] 09/23/2024 Mendel Velasquez [facility] [address] [place] [address] [address] [place] [address] 09/30/2024 Mendel Velasquez [facility] [address] [place] [address] [address] [place] [address] 09/30/2024 Kim Morrow [facility] [address] [place] [address] [address] [place] [address] 10/01/2024 Kim Morrow Assessments Encounter Date Diagnosis (ICD Code) Assessment Notes Treatment Notes Treatment Clinical Notes Section Notes 10/20/2023 SOB (shortness of breath) (ICD-10 - R06.02) EF reduced down to 40-45% 10/20/2023 Heart failure with reduced ejection fraction (ICD-10 - I50.20) Etiology is most likely non ischemic given negative stress tests. However, she has DM so willl need to follow up CT score for CAD screening. Continue aspirin and lipitor. Start coreg 3.125mg bid Talked about ER precaution for chest pain especially in the setting of recent troponin elevation 07/31/2024 CLINT (acute kidney injury) (ICD-10 - N17.9) Acute Kidney Injury: Care Instructions material was printed Acute kidney injury likely due to cardiorenal/fe nofibrate. CKD stage II-IIIa since August 2023 d/t HTN, DM, Cardiorenal/NS AID use. Hypertension is uncontrolled in clinic with unknown control at home. Diabetes is uncontrolled. CHF is controlled. Hemoglobin is at goal for CKD. Potassium was mildly elevated on last labs. 07/31/2024 Proteinuria, unspecified type (ICD-10 - R80.9) Acute kidney injury likely due to cardiorenal/fe nofibrate. CKD stage II-IIIa since August 2023 d/t HTN, DM, Cardiorenal/NS AID use. Hypertension is uncontrolled in clinic with unknown control at home. Diabetes is uncontrolled. CHF is controlled. Hemoglobin is at goal for CKD. Potassium was mildly elevated on last labs. 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 Acute kidney injury likely due to cardiorenal/fe nofibrate. CKD stage II-IIIa since August 2023 d/t HTN, DM, Cardiorenal/NS AID use. Hypertension is uncontrolled in clinic with unknown control at home. Diabetes is uncontrolled. CHF is controlled. Hemoglobin is at goal for CKD. Potassium was mildly elevated on last labs. 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 Acute kidney injury likely due to cardiorenal/fe nofibrate. CKD stage II-IIIa since August 2023 d/t HTN, DM, Cardiorenal/NS AID use. Hypertension is uncontrolled in clinic with unknown control at home. Diabetes is uncontrolled. CHF is controlled. Hemoglobin is at goal for CKD. Potassium was mildly elevated on last labs. 08/06/2024 Long-term use of aspirin therapy (ICD-10 - Z79.82) 07/31/2024 Essential hypertension (ICD-10 - I10) Acute kidney injury likely due to cardiorenal/fe nofibrate. CKD stage II-IIIa since August 2023 d/t HTN, DM, Cardiorenal/NS AID use. Hypertension is uncontrolled in clinic with unknown control at home. Diabetes is uncontrolled. CHF is controlled. Hemoglobin is at goal for CKD. Potassium was mildly elevated on last labs. 10/20/2023 Palpitation (ICD-10 - R00.2) Pt to complete 24 hour holter monitro 10/20/2023 Irregular heart beat (ICD-10 - I49.9) 07/31/2024 Anemia in chronic kidney disease (ICD-10 - D63.1) Acute kidney injury likely due to cardiorenal/fe nofibrate. CKD stage II-IIIa since August 2023 d/t HTN, DM, Cardiorenal/NS AID use. Hypertension is uncontrolled in clinic with unknown control at home. Diabetes is uncontrolled. CHF is controlled. Hemoglobin is at goal for CKD. Potassium was mildly elevated on last labs. 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 Acute kidney injury likely due to cardiorenal/fe nofibrate. CKD stage II-IIIa since August 2023 d/t HTN, DM, Cardiorenal/NS AID use. Hypertension is uncontrolled in clinic with unknown control at home. Diabetes is uncontrolled. CHF is controlled. Hemoglobin is at goal for CKD. Potassium was mildly elevated on last labs. 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 Acute kidney injury likely due to cardiorenal/fe nofibrate. CKD stage II-IIIa since August 2023 d/t HTN, DM, Cardiorenal/NS AID use. Hypertension is uncontrolled in clinic with unknown control at home. Diabetes is uncontrolled. CHF is controlled. Hemoglobin is at goal for CKD. Potassium was mildly elevated on last labs. 07/31/2024 Type 2 diabetes with nephropathy (ICD-10 - E11.21) Acute kidney injury likely due to cardiorenal/fe nofibrate. CKD stage II-IIIa since August 2023 d/t HTN, DM, Cardiorenal/NS AID use. Hypertension is uncontrolled in clinic with unknown control at home. Diabetes is uncontrolled. CHF is controlled. Hemoglobin is at goal for CKD. Potassium was mildly elevated on last labs. 10/20/2023 Essential hypertension (ICD-10 - I10) Continue current medication and add coreg 3.125mg bid 10/20/2023 Hyperlipemia (ICD-10 - E78.5) Continue statin therapy 07/31/2024 Chronic systolic congestive heart failure (ICD-10 - I50.22) Acute kidney injury likely due to cardiorenal/fe nofibrate. CKD stage II-IIIa since August 2023 d/t HTN, DM, Cardiorenal/NS AID use. Hypertension is uncontrolled in clinic with unknown control at home. Diabetes is uncontrolled. CHF is controlled. Hemoglobin is at goal for CKD. Potassium was mildly elevated on last labs. 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 Acute kidney injury likely due to cardiorenal/fe nofibrate. CKD stage II-IIIa since August 2023 d/t HTN, DM, Cardiorenal/NS AID use. Hypertension is uncontrolled in clinic with unknown control at home. Diabetes is uncontrolled. CHF is controlled. Hemoglobin is at goal for CKD. Potassium was mildly elevated on last labs. 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 Acute kidney injury likely due to cardiorenal/fe nofibrate. CKD stage II-IIIa since August 2023 d/t HTN, DM, Cardiorenal/NS AID use. Hypertension is uncontrolled in clinic with unknown control at home. Diabetes is uncontrolled. CHF is controlled. Hemoglobin is at goal for CKD. Potassium was mildly elevated on last labs. 10/20/2023 Type 2 diabetes mellitus without complications (ICD-10 - E11.9) 10/20/2023 CKD (chronic kidney disease) (ICD-10 - N18.9) 10/01/2024 Other I, Mikala Granados, am scribing for, and in the presence of Dr. Mendel Velasquez. I, Dr. Mendel Velasquez, personally performed the services described in this documentatio n, as scribed by Mikala Granados in my presence, and it is both accurate and complete. 10/20/2023 Other 07/31/2024 Other Discontinue fenofibrate. Hydrate well. Repeat BMP in [address] Antonio office. Check urine protein creatinine level. Continue furosemide. Weight daily. Low-sodium diet. Consider adding Jardiance. Continue current antihypertensives and monitor blood pressure daily with a goal of less than 130/80. Patient instructed to call clinic if blood pressure not at goal range. Avoid nephrotoxins and NSAIDs. Renal dose medications for GFR of less than 30 mL/min based on most recent labs. Monitor potassium level. Monitor anemia labs. Follow-up in 4 months with labs at Dr. Antonio office Acute kidney injury likely due to cardiorenal/fe nofibrate. CKD stage II-IIIa since August 2023 d/t HTN, DM, Cardiorenal/NS AID use. Hypertension is uncontrolled in clinic with unknown control at home. Diabetes is uncontrolled. CHF is controlled. Hemoglobin is at goal for CKD. Potassium was mildly elevated on last labs. 09/06/2024 Other Renal biopsy results discussed with patient. Continue furosemide. Weight daily. Low-sodium diet. Consider adding Jardiance. Continue current antihypertensives and monitor blood pressure daily with a goal of less than 130/80. Patient instructed to call clinic if blood pressure not at goal range. Avoid nephrotoxins and NSAIDs. Renal dose medications for GFR of less than 30 mL/min based on most recent labs. Monitor potassium level. Monitor anemia labs. Follow-up in 4 months with labs at Dr. 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 Acute kidney injury likely due to cardiorenal/fe nofibrate. CKD stage II-IIIa since August 2023 d/t HTN, DM, Cardiorenal/NS AID use. Hypertension is uncontrolled in clinic with unknown control at home. Diabetes is uncontrolled. CHF is controlled. Hemoglobin is at goal for CKD. Potassium was mildly elevated on last labs. Plan Of Treatment Pending Test Test Name Order Date Prothrombin Time 56492 08/06/2024 Basic Metabolic Panel (BMP) 86989 2024 CBC w\ Auto Diff [id number] 08/06/2024 Partial Thromboplastin Time 64720 2024 Holter x 24 Hour-69854 08/17/2023 Electrocardiogram (EKG) - 04886 08/17/19 CT Cardiac Scoring Diagnostic-34623 08/01 Future Test Test Name Order Date Basic Metabolic Panel (BMP) 83748 2024 Next Appt Details Provider Name:Mendel Velasquez, 10/03/2024 02:00:00 PM, [address] [place] [address] [address], [place], [address], Provider Name:Kim warner, 11/14/2024 02:30:00 PM, [address] [place] [address] [address], [place], [address], Insurance Providers Payer Name Payer Address Payer Phone Subscriber Number Group Number Insured Name Patient Relationship to Insured Coverage Start Date Coverage End Date [place] Medicaid [address] [place] [address] [id number] ALEXYS SANDHU Self - patient is the insured Medical (General) History Medical History History ICD Code Diabetes mellitus type 2 Diabetic Eruption of skin Recurrent depression Hypertension CHF Kidney Disease Heart murmur High Cholesterol Anemia Seasonal Allergies/Hay Fever Depression/Anxiety Surgical History Surgery Date(Month/Year) section X 2 cholecystectomy dental extractions 05/27/2019 dental extractions 03/19/2019 dental extractions 04/24/2019 I and D upper inner thigh 03/05/2021 Hospitalization History Reason Date(Month/Year) ER blood sugar 10/19/23 Surgical Procedures
[2024-10-02 19:37] VITALS: BP 170/87; PULSE 86; O2SAT 98
[2024-10-02 19:49] LABS: Hematocrit 32.9 % (36-47); Hemoglobin 10.60 g/dL (11.27-16.99); Mean Corpuscular HGB Conc 32.2 g/dL (30-55); Mean Corpuscular Hemoglobin 27.2 pg (27-33); Mean Corpuscular Volume 84.6 fl (85-98); Nucleated Red Blood Cells % 0 %; Platelet Count 352 10^3/cmm (157-399); Red Blood Count 3.89 10^6/uL (3.85-5.65); White Blood Count 11.93 10^3/uL (3.29-11.43)
[2024-10-02 19:53] LABS: Glucose Urine UA 2+ (Normal); Nitrate Urine Negative (Negative); Specific Gravity, Urine 1.016 (1.005-1.030)
--- NOTE | 2024-10-02 19:53 | ED_ITS ---
HPI - Recheck/Abnormal Lab/Rx 2 General: Chief Complaint: Recheck/Abnormal Lab/Rx Stated Complaint: Low BS Time Seen by Provider: 10/02/24 18:59 History of Present Illness: 49-year-old female with history of diabe marlyn and hypertension who presents the emergency room with hypoglycemia by ambulance. Said her sugar was high when she ate earlier and so she took some extra insulin. She said it dropped down to around 45 and she became symptomatic. She received some glucose and now her sugar is consistently above 200. She does not have any specific complaints but says she has been kind of tired for the last couple of days. No fevers. No altered mental status at this point. No focal motor deficits. No abdominal pain. No nausea or vomiting. Related Data Home Medications ?Medication ?Instructions ?Recorded ?Confirmed aspirin 81 mg capsule 81 mg PO DAILY 03/10/2408/03 insulin lispro 100 unit/mL See Rx Instructions .Route .COMPLEX 03/10/24 08/30/24 subcutaneous solution rosuvastatin 40 mg tablet 40 mg PO DAILY 03/10/2408/03 fenofibrate nanocrystallized 145 145 mg PO DAILY 05/0908/30/24 mg tablet nifedipine 60 mg tablet,extended 60 mg PO DAILY 08/30/24 release 24 hr blood-glucose sensor (Danger G7 #1 ea 06/28/24 5 Sensor device) Previous Rx's ?Medication ?Instructions ?Recorded metoprolol tartrate 25 mg tablet 50 mg (2 x 25 mg) PO BID@0900,2100 04/04/24 #180 tabs albuterol sulfate 90 mcg/actuation 2 inh inhalation Q4 H PRN shortness 05/09/24 aerosol inhaler of breath or wheezing #18 gr ams hydrocodone 5 mg-acetaminophen 325 1 tab PO Q4H PRN pa in #10 tabs 06/01/24 mg tablet bumetanide 2 mg tablet 2 mg PO BIDAC #60 tabs 06/12 hydralazine 100 mg tablet 100 mg PO TID #90 tabs 06/12 ondansetron 4 mg disintegrating 4 mg PO TID PRN nausea and 06/27/24 tablet vomiting #20 tabs cefdinir 300 mg capsule 300 mg PO BID 7 days #14 cap s 10/02/24 Allergies Allergy/AdvReac Type Severity Reaction Status Date / Time Influenza Virus Vaccines Allergy ALGY-Anaphy Verified 10/02/24 19:04 laxis Iodinated Contrast Media Allergy ALGY-Hives Verified 10/02/24 19:04 morphine Allergy ALGY-Hives Verified 10/02/24 19:04 Review of Systems 2 Narrative: Constitutional symptoms: Negative except as documented in HPI. Skin symptoms: Negative except as documented in HPI. Eye symptoms: Negative except as documented in HPI. ENMT symptoms: Negative except as documented in HPI. Respiratory symptoms: Negative except as documented in HPI. Cardiovascular symptoms: Negative except as documented in HPI. Gastrointestinal symptoms: Negative except as documented in HPI. Genitourinary symptoms: Negative except as documented in HPI. Musculoskeletal symptoms: Negative except as documented in HPI. Neurologic symptoms: Negative except as documented in HPI. Psychiatric symptoms: Negative except as documented in HPI. Endocrine symptoms: Negative except as documented in HPI. PFSH ED 2 PFSH: Medical History T2DM (type 2 diabetes mellitus) Congestive heart failure section wound seroma, Hypertension Diabetes Family History Father CAD (coronary artery disease) Social History Smoking and tobacco/nicotine status: never used tobacco/nicotine Physical Exam 2 Narrative: EXAM NARRATIVE: General: Alert, no acute distress. Skin: Warm, dry. Head: Normocephalic, atraumatic. Neck: Supple, trachea midline. Eye: Extraocular movements are intact. Ears, nose, mouth and throat: mucosa moist. Cardiovascular: Regular, Normal peripheral perfusion. Respiratory: Lungs are clear to auscultation, respirations are non-labored, breath sounds are equal, Symmetrical chest wall expansion. Gastrointestinal: Soft, Nontender, Non distended Musculoskeletal: Normal ROM, no deformity. Neurological: Alert and oriented, No focal neurological deficit observed. Psychiatric: Cooperative, appropriate mood & affect. Course 2 Vital Signs: Vital signs: Vital Signs Temperature 98.0 F 10/02/24 18:58 Pulse Rate 84 10/02/24 20:04 Respiratory Rate 16 10/02/24 18:58 Blood Pressure 142/82 10/02/24 20:04 Pulse Oximetry 96 10/02/24 20:04 Oxygen Delivery Me thod Room Air 10/02/24 20:04 MDM - Recheck/Abnormal Lab/Rx Medical Decision Making Medical decision making: Differential diagnosis including but not limited to and based on the above HPI, review of systems and physical exam: In this patient with hypoglycemia would have concern for infection causing low blood sugars or renal failure which can also result in low blood sugars in a diabetic. Orders placed to evaluate differential diagnosis based on the above differential, HPI and physical exam Lab Review: Laboratory results were reviewed and interpreted by myself the emergency room physician. Mild leukocytosis. Stable anemia. Slight worsening in renal function with a BUN/creatinine of 40 and 3.2. Glucose has remained just above 200. I reviewed the patient's medical record. Reexamination: Patient remained stable. No increased work of breathing. No altered mental status. No focal motor deficits. Assessment and plan: Hypoglycemia Dehydration Acute on chronic renal insufficiency Urinary tract infection ? IV Rocephin and IV normal saline bolus in the emergency room. - Discharged home - Discussed plan with patient. Answered any questions. - Evaluation and treatment of this problem were appropriate in the emergency setting. Lab Data 10/02/24 19:35 10/02/24 19:35 Laboratory Results WBC 11.93 10^3/uL (3.29-11.43) H 10/02/24 19:35 RBC 3.89 10^6/uL (3.85-5.65) 10/02/24 19:35 Hgb 10.60 g/dL (11.27-16.99) L 10/02/24 19:35 Hct 32.9 % (36-47) L 10/02/24 19:35 MCV 84.6 fl (85-98) L 10/02/24 19:35 MCH 27.2 pg (27-33) 10/02/24 19:35 MCHC 32.2 g/dL (30-55) 10/02/24 19:35 RDW 13.6 % (12.1-15.1) 10/02/24 19:35 Plt Count 352 10^3/cmm (157-399) 10/02/24 19:35 MPV 10.0 fL (7.4-10.4) 10/02/24 19:35 Neut % (Auto) 70.0 % 10/02/24 19:35 Lymph % (Auto) 15.0 % 10/02/24 19:35 [place] % (Auto) 5.8 % 10/02/24 19:35 Eos % (Auto) 8.1 % 10/02/24 19:35 Baso % (Auto) 0.8 % 10/02/24 19:35 Neut # (Auto) 8.36 10^3/uL (1.8-7.7) H 10/02/24 19:35 Lymph # (Auto) 1.8 10^3/uL (0.8-4.8) 10/02/24 19:35 [place] # (Auto) 0.7 10^3/uL (0.2-0.9) 10/02/24 19:35 Eos # (Auto) 1.0 10^3/uL (0.0-0.8) H 10/02/24 19:35 Baso # (Auto) 0.1 10^3/uL (0.0-0.1) 10/02/24 19:35 Nucleated RBC % (auto) 0 % 10/02/24 19:35 Nucleated RBCs # 0.0 /100WBC 10/02/24 19:35 Sodium 139 mmol/L (136-145) 10/02/24 19:35 Potassium 5.0 mmol/L (3.5-5.1) 10/02/24 19:35 Chloride 103 mmol/L (98-107) 10/02/24 19:35 Carbon Dioxide 22 mmol/L (22-29) 10/02/24 19:35 Anion Gap 19.0 (5-19) 10/02/24 19:35 BUN 40 mg/dL (6-20) H 10/02/24 19:35 Creatinine 3.2 mg/dL (0.5-0.9) H 10/02/24 19:35 GFR Calculation 15.3 mL/min (90-130) L 10/02/24 19:35 Glucose 229 mg/dL (65-115) H 10/02/24 19:35 POC Glucose 229 mg/dL (70-110) H 10/02/24 19:03 Calculated Osmolality 305 mOsm/kg (285-295) H 10/02/24 19:35 Calcium 9.5 mg/dL (8.5-10.5) 10/02/24 19:35 Total Bilirubin 0.2 mg/dL (0.15-1.2) 10/02/24 19:35 AST 16 U/L (0-32) 10/02/24 19:35 ALT 16 U/L (0-33) 10/02/24 19:35 Alkaline Phosphatase 84 U/L (35-105) 10/02/24 19:35 Total Protein 6.5 g/dL (6.6-8.7) L 10/02/24 19:35 Albumin 3.4 g/dL (3.5-5.2) L 10/02/24 19:35 Globulin 3.1 g/dL (1.3-4.6) 10/02/24 19:35 Urine Color Yellow (Yellow) 10/02/24 19:00 Urine Appearance Cloudy (CLEAR) A 10/02/24 19:00 Urine pH 6.0 (5-7) 10/02/24 19:00 Ur Specific [place] 1.016 (1.005-1.030) 10/02/24 19:00 Urine Protein 4+ (Negative) A 10/02/24 19:00 Urine Glucose (UA) 2+ (Normal) H 10/02/24 19:00 Urine Ketones Negative (Negative) 10/02/24 19:00 Urine Blood Trace (Negative) A 10/02/24 19:00 Urine Nitrate Negative (Negative) 10/02/24 19:00 Urine Bilirubin Negative (Negative) 10/02/24 19:00 Urine Urobilinogen 0.2 mg/dL (Negative) 10/02/24 19:00 Ur Leukocyte Esterase Trace (Negative) A 10/02/24 19:00 Urine RBC 0-2 /hpf (0-2) 10/02/24 19:00 Urine WBC >100 /hpf (0-5) H 10/02/24 19:00 Ur Squamous Epith Cells 0-5 /hpf (0-5) 10/02/24 19:00 Amorphous Sediment Not Reportable 10/02/24 19:00 Urine Bacteria 1+ /hpf (NONE) H 10/02/24 19:00 Hyaline Casts 2.46 /lpf 10/02/24 19:00 No radiology studies performed this visit Discharge Plan Discharge Patient Disposition: Home Clinical Impression: Hypoglycemia, Urinary tract infection, Acute on chronic renal insufficiency Condition: Stable Prescriptions: New cefdinir 300 mg capsule 300 mg PO BID 7 Days Qty: 14 0RF No Action (DME) Dexcom G7 Sensor Device See Rx Instructions .ROUTE .MEDSUPPLY Qty: 1 Rx Instructions: As directed metoprolol tartrate 25 mg tablet 50 mg PO BID@0900,2100 Qty: 180 1RF nifedipine 60 mg tablet extended release 24hr 60 mg PO DAILY fenofibrate nanocrystallized 145 mg tablet 145 mg PO DAILY albuterol sulfate 90 mcg/actuation HFA aerosol inhaler 2 inh INHALATION Q4H PRN (Reason: shortness of breath or wheezing) Qty: 18 0RF hydrocodone-acetaminophen 5-325 mg tablet 1 tab PO Q4H PRN (Reason: pain) Qty: 10 0RF insulin lispro 100 unit/mL solution See Rx Instructions .ROUTE .COMPLEX Rx Instructions: Inject 7 units subq with meals if bs is below 200 BG, above 200 inject 12 units. rosuvastatin 40 mg Tablet 40 mg PO DAILY aspirin 81 mg Capsule 81 mg PO DAILY bumetanide 2 mg tablet 2 mg PO BIDAC Qty: 60 0RF hydralazine 100 mg tablet 100 mg PO TID Qty: 90 0RF ondansetron 4 mg tablet,disintegrating 4 mg PO TID PRN (Reason: nausea and vomiting) Qty: 20 0RF Discharge Orders: Discharge ED (Routine); Ordered 10/02/24 Ordered By: Margaret Sherwood Referrals: Jimmy Antonio, [employer] [Primary Care Provider, Nurse Practitioner] Discharge Diet: Usual diet Discharge Activity: Increase activity as tolerated Patient Instructions: Urinary Tract Infection in Men (ED), Opioid Safety, Pain Management, Patient Portal & [place] Instructions Activity Restrictions/Additional Instructions: Thank you for choosing [facility] for your healthcare needs today. You have been screened and evaluated and felt safe for discharge. Health conditions do change or evolve sometimes and as such it is important that you follow up with your Primary Doctor to be re checked, 3-5 days is a general good time frame for follow up. You are always welcome to return to the ED for re assessment if your symptoms are worsening or you have new concerns Print Language: Guatemalan Coding Level of Care Code ED Digital Associate Media Director for Joe Gallagher
[2024-10-02 20:04] VITALS: BP 142/82; PULSE 84; O2SAT 96
[2024-10-02 20:08] LABS: Alanine Aminotransferase 16 U/L (0-33); Albumin Level 3.4 g/dL (3.5-5.2); Alkaline Phosphatase 84 U/L (35-105); Anion Gap 19.0 (5-19); Aspartate Amino Transferase 16 U/L (0-32); Blood Urea Nitrogen 40 mg/dL (6-20); Calcium 9.5 mg/dL (8.5-10.5); Carbon Dioxide 22 mmol/L (22-29); Chloride 103 mmol/L (98-107); Creatinine Clr Calc Pharmacy 22.3562; Globulin 3.1 g/dL (1.3-4.6); Glucose 229 mg/dL (65-115); Osmolality Calculated 305 mOsm/kg (285-295); Potassium 5.0 mmol/L (3.5-5.1); Sodium 139 mmol/L (136-145); Total Protein 6.5 g/dL (6.6-8.7)
[2024-10-02 20:30] VITALS: PULSE 87; O2SAT 94
[2024-10-02] MEDS: cefTRIAXone 1,000 mg SDV 1000 MG IVP (20:40)
== END 2024-10-02 21:53 | disposition home or self-care (01) ==
PROVIDERS: Emergency Provider Emergency Medicine; PCP Nurse Practitioner
DX: N39.0 Urinary tract infection, site not specified (principal); E11.649 Type 2 diabetes mellitus with hypoglycemia without coma; E11.22 Type 2 diabetes mellitus with diabetic chronic kidney disease; I13.0 Hypertensive heart and chronic kidney disease with heart failure and stage 1 through stage 4 chronic kidney disease, or unspecified chronic kidney disease; N18.9 Chronic kidney disease, unspecified; I50.9 Heart failure, unspecified; Z79.4 Long term (current) use of insulin; Z79.82 Long term (current) use of aspirin
CPT/HCPCS: 36415; 36416; 80053; 81001; 82962; 85025; 96361; 96374; 99284; J0696; J7030

== ENCOUNTER → 2024-12-03 14:47 | Outpatient (BNVA) | payer MEDICAID, SELFPAY | PROVIDERS: PCP Nurse Practitioner; Visit Provider Internal Medicine Cardiovascular Disease | DX: I13.0 Hypertensive heart and chronic kidney disease with heart failure and stage 1 through stage 4 chronic kidney disease, or unspecified chronic kidney disease (principal); E11.22 Type 2 diabetes mellitus with diabetic chronic kidney disease; I50.32 Chronic diastolic (congestive) heart failure; N18.4 Chronic kidney disease, stage 4 (severe); Z79.4 Long term (current) use of insulin; R79.89 Other specified abnormal findings of blood chemistry | CPT/HCPCS: 99214 ==

== ENCOUNTER 2024-12-04 13:19 | Outpatient (CLI) | payer MEDICAID, SELFPAY ==
--- NOTE | 2024-12-04 13:25 | MM_ITS ---
WS: [id number] BILATERAL 3D TOMOSYNTHESIS DIGITAL SCREENING MAMMOGRAPHY WITH CAD CLINICAL INFORMATION: SCREENING HISTORY: Screening mammogram. No current complaints. COMPARISON: Baseline TECHNIQUE: Bilateral CC and MLO views. FINDINGS: Scattered fibroglandular densities bilaterally. No suspicious focal mass, asymmetry, calcifications, or architectural distortion. No evidence of malignancy. Vascular calcification. MM/MM scr tomosynthesis [id number] IMPRESSION: DENSITY: There are scattered areas of fibroglandular density. BI-RADS: 2 - Benign. FOLLOW UP: 1 Year Follow-up Recommend return to annual screening mammography.
[2024-12-04 14:24] LABS: Anion Gap 16.9 (5-19); Blood Urea Nitrogen 56 mg/dL (6-20); Calcium 9.7 mg/dL (8.5-10.5); Carbon Dioxide 26 mmol/L (22-29); Chloride 98 mmol/L (98-107); Glucose 324 mg/dL (65-115); NT Pro B Type Natriuretic Pept 371 pg/mL (0-125); Osmolality Calculated 312 mOsm/kg (285-295); Potassium 3.9 mmol/L (3.5-5.1); Sodium 137 mmol/L (136-145)
== END 2024-12-04 13:20 | disposition home or self-care (01) ==
LOC: RAD 13:19
PROVIDERS: Internal Medicine Cardiovascular Disease; PCP Nurse Practitioner; Visit Provider Nurse Practitioner
DX: Z12.31 Encounter for screening mammogram for malignant neoplasm of breast (principal); R06.02 Shortness of breath
CPT/HCPCS: 36415; 77063; 77067; 80048; 83880